=== PATIENT | female | born 1950 | race Caucasian/White ===

== ENCOUNTER 2017-08-30 12:18 | Emergency (ER) | payer BC, OTHER ==
--- NOTE | 2017-08-30 13:32 | RAD ---
HISTORY: Chest pain COMPARISONS: April 18, 2009 VIEWS: 1: frontal portable view of the chest at 1:19 PM FINDINGS: LINES AND TUBES: None. CARDIOMEDIASTINAL SILHOUETTE: The cardiomediastinal silhouette is normal for portable technique. PLEURA: The costophrenic angles are sharp. No pleural abnormalities are noted. LUNG PARENCHYMA: The lungs are clear. ABDOMEN: The upper abdomen is clear. There is no subphrenic gas. BONES AND SOFT TISSUES: No bone or soft tissue abnormalities are noted. IMPRESSION: NO ACTIVE CARDIOPULMONARY DISEASE.
[2017-08-30 13:48] LABS: INR 0.9 (0.77-1.02)
[2017-08-30 13:57] LABS: ABS Basophils 0.1 10^3/ul (0-0.2); ABS Eosinophils 0.1 10^3/ul (0-0.6); ABS Lymphocytes 2.2 10^3/ul (1.0-4.8); ABS Monocytes 0.4 10^3/ul (0-0.8); ABS Neutrophils 3.7 10^3/ul (1.5-7.7); ABS Nucleated RBC 0 10^3/ul; Eosinophil % 1.8 % (0-6); Hematocrit 39 % (35-47); Hemoglobin 13.4 g/dl (12.0-16.0); Lymphocyte % 34.4 % (25-47); Mean Corpuscular HGB Conc 34 g/dl (31-36); Mean Corpuscular Hemoglobin 30 pg (27-31); Mean Corpuscular Volume 88 fL (80-97); Mean Platelet Volume 10 um3 (7.4-10.4); Nucleated Red Blood Cells % 0.1; Platelet Count 216 10^3/ul (150-450); Red Blood Count 4.45 10^6/ul (4.0-5.4); Red Cell Distribution Width 14 % (10.5-15); White Blood Count 6.5 10^3/ul (3.5-10.8)
[2017-08-30 14:11] LABS: EGFR Non-African American 71.5 (>60)
[2017-08-30 15:44] LABS: Urine Appearance Clear; Urine Blood Negative (Negative); Urine Color Yellow; Urine Ketones Negative (Negative); Urine Protein Negative (Negative); Urine Specific Gravity 1.014 (1.010-1.030); Urine Urobilinogen Negative (Negative)
[2017-08-30 16:07] VITALS: BP 146/53
--- NOTE | 2017-08-31 09:27 | ED ---
Alberto Sanon Angela, scribed for Rene Collins MD on 08/30/17 at 1312 . HPI Chest Pain - HPI Summary HPI Summary: This pt is a 67 y/o female [facility]/o chest pain for the past year , worsening over the last month. Pt describes her chest pain as pressure, radiating from breasts outwards. She rates her pain 7/0 in severity. Today pt states she took her blood pressure at home with 2 different machine, and had a blood pressure averaging around 240/110. Pt states she has LE swelling (worse after surgery). Pt notes she called her bathing suit maker (Dr. Martin) and was advised to come to the ED. Pt used to see Dr. Lew at [facility], now is followed up by Dr. Martin at [place]. She states she has pain related to her surgery from . Pt had spine surgery on June 15 in [facility]. PMHx: GERD, diabetes, HTN. Pt takes Levemir and Metoprolol. - History of Current Complaint Chief Complaint: EDChestWallPain Time Seen by Provider: 08/30/17 13:06 Hx Obtained From: Patient Onset/Duration: Started Days Ago, Still Present Timing: Lasting Days Current Severity: Moderate Pain Intensity: 7 Pain Scale Used: 0-10 Numeric Chest Pain Location: Diffuse Chest Pain Radiates: Yes Chest Pain Radiates To:: Arm - bilateral arms Character: Pressure/Squeezing - pressure Aggravating Factor(s): Nothing Alleviating Factor(s): Nothing Associated Signs and Symptoms: Positive: Chest Pain, Other: - hypertensive - Allergy/Home Medications Allergies/Adverse Reactions: Allergies Allergy/AdvReac Type Severity Reaction Status Date / Time MS Ibuprofen [Ibuprofen] Allergy Heartburn Verified 08/30/17 16:07 MS Metformin [Metformin] Allergy Heartburn Verified 08/30/17 16:07 various narcotics AdvReac Nausea Uncoded 08/30/17 16:07 Home Medications: Home Medications Bumetanide TAB* [Bumex 1 MG TAB*] 0.5 mg PO DAILY 08/30/17 [History Confirmed ] Cholecalciferol TAB* [Vitamin D TAB*] 2,000 unit PO DAILY 08/30/17 [History Confirmed 08/30/17] Cyanocobalamin TAB* [Vitamin B12 TAB*] 500 mcg PO DAILY 08/30/17 [History Confirmed 08/30/17] Insulin ASPART (NF) [Novolog (NF)] 2 - 11 units SUBCUT ACHS 08/30/17 [History Confirmed 08/30/17] Insulin Detemir (NF) [Levemir (NF)] 20 unit SUBCUT DAILY 08/30/17 [History Confirmed 08/30/17] Methocarbamol TAB* [Robaxin 500 MG TAB*] 750 mg PO Q6H PRN 08/30/17 [History Confirmed 08/30/17] Multivitamins/Minerals TAB* [Theragran/minerals TAB*] 1 tab PO DAILY 08/30/17 [ History Confirmed 08/30/17] oxyCODONE TAB* [Roxycodone TAB 5 mg*] 5 - 10 mg PO Q4H PRN 08/30/17 [History Confirmed 08/30/17] PMH/Surg Hx/FS Hx/Imm Hx Endocrine/Hematology History: Reports: Hx Diabetes - type 2, Hx Thyroid Disease Cardiovascular History: Reports: Hx Angina, Hx Hypercholesterolemia, Hx Hypertension Denies: Hx Pacemaker/ICD Respiratory History: Denies: Hx Asthma - A CHILD GI History: Reports: Hx Diverticulosis, Hx Hiatal Hernia, Other GI Disorders - DIFFICULTY SWALLOWING, DIARRHEA/CONSTIPATION History: Reports: Other Problems/Disorders - INCONTINENCE Denies: Hx Dialysis, Hx Renal Disease Musculoskeletal History: Reports: Hx Arthritis, Hx Back Problems, Other Musculoskeletal History - WEAKNESS/TREMORS Sensory History: Reports: Hx Cataracts, Hx Contacts or Glasses Denies: Hx Hearing Aid Opthamlomology History: Reports: Hx Cataracts, Hx Contacts or Glasses Neurological History: Reports: Hx Headaches, Other Neuro Impairments/Disorders - POST CONCUSSION SYNDROME, DIZZINESS Psychiatric History: Denies: Hx Panic Disorder - Surgical History Surgery Procedure, Year, and Place: HYSTERECTOMY; ENDOMETRIOSIS SURGERY; RT AND LT BREAST BIOPSY; BREAST REDUCTION;. MAY 2017 LUMBAR FUSION AND CYST REMOVAL; Infectious Disease History: No Infectious Disease History: Denies: History Other Infectious Disease, Traveled Outside the [place] in Last 30 Days - Family History Known Family History: Positive: Diabetes, Other - prostate and skin cancer - Social History Alcohol Use: Rare Alcohol Amount: wine Substance Use Type: Reports: None Smoking Status (MU): Never Smoked Tobacco Review of Systems Negative: Fever, Chills Cardiovascular: Other - hypertension Positive: Chest Pain Musculoskeletal: Other - chronic pain from surgery All Other Systems Reviewed And Are Negative: Yes Physical Exam - Summary Physical Exam Summary: VITAL SIGNS: Reviewed. GENERAL: Patient is a well-developed and nourished female who is lying comfortable in the stretcher. Patient is not in any acute respiratory distress. HEAD AND FACE: No signs of trauma. No ecchymosis, hematomas or skull depressions. No sinus tenderness. EYES: PERRLA, EOMI x 2, No injected conjunctiva, no nystagmus. EARS: Hearing grossly intact. Ear canals and tympanic membranes are within normal limits. MOUTH: Oropharynx within normal limits. Dry oral mucosa. NECK: Supple, trachea is midline, no adenopathy, no JVD, no carotid bruit, no c- spine tenderness, neck with full ROM. CHEST: Symmetric, no tenderness at palpation LUNGS: Clear to auscultation bilaterally. No wheezing or crackles. CVS: Regular rate and rhythm, S1 and S2 present, no murmurs or gallops appreciated. ABDOMEN: Soft, non-tender. No signs of distention. No rebound no guarding, and no masses palpated. Bowel sounds are normal. EXTREMITIES: FROM in all major joints, no cyanosis or clubbing. 1+ pitting edema in bilateral lower extremity. NEURO: Alert and oriented x 3. No acute neurological deficits. Speech is normal and follows commands. SKIN: Dry and warm Triage Information Reviewed: Yes Vital Signs On Initial Exam: Initial Vitals Temp Pulse Resp BP Pulse Ox 97.6 F 60 18 149/70 98 08/30/17 12:21 08/30/17 12:21 08/30/17 12:21 08/30/17 12:21 08/30/17 12:21 Vital Signs Reviewed: Yes Diagnostics - Vital Signs Vital Signs Temp Pulse Resp BP Pulse Ox 08/30/17 12:21 97.6 F 60 18 149/70 98 - Laboratory Lab Results: Lab Results 08/30/17 08/30/17 08/30/17 Range/Units 13:28 13:46 13:46 WBC 6.5 (3.5-10.8) 10^3/ul RBC 4.45 (4.0-5.4) 10^6/ul Hgb 13.4 (12.0-16.0) g/dl Hct 39 (35-47) % MCV 88 (80-97) fL MCH 30 (27-31) pg MCHC 34 (31-36) g/dl RDW 14 (10.5-15) % Plt Count 216 (150-450) 10^3/ul MPV 10 (7.4-10.4) um3 Neut % (Auto) 56.8 (38-83) % Lymph % (Auto) 34.4 (25-47) % [place] % (Auto) 6.2 (1-9) % Eos % (Auto) 1.8 (0-6) % Baso % (Auto) 0.8 (0-2) % Absolute Neuts (auto) 3.7 (1.5-7.7) 10^3/ul Absolute Lymphs (auto) 2.2 (1.0-4.8) 10^3/ul Absolute Monos (auto) 0.4 (0-0.8) 10^3/ul Absolute Eos (auto) 0.1 (0-0.6) 10^3/ul Absolute Basos (auto) 0.1 (0-0.2) 10^3/ul Absolute Nucleated RBC 0 10^3/ul Nucleated RBC % 0.1 INR (Anticoag Therapy) 0.90 (0.77-1.02) APTT 30.4 (26.0-36.3) seconds Sodium (133-145) mmol/L Potassium (3.5-5.0) mmol/L Chloride (101-111) mmol/L Carbon Dioxide (22-32) mmol/L Anion Gap (2-11) mmol/L BUN (6-24) mg/dL Creatinine (0.51-0.95) mg/dL Est GFR ( Amer) (>60) Est GFR (Non-Af Amer) (>60) BUN/Creatinine Ratio (8-20) Glucose (70-100) mg/dL Calcium (8.6-10.3) mg/dL Magnesium (1.9-2.7) mg/dL Total Bilirubin (0.2-1.0) mg/dL AST (13-39) U/L ALT (7-52) U/L Alkaline Phosphatase (34-104) U/L Total Creatine Kinase (10-223) U/L CK-MB (CK-2) (0.6-6.3) ng/mL Troponin I (<0.04) ng/mL B-Natriuretic Peptide 65 ( - 100) pg/mL Total Protein (6.4-8.9) g/dL Albumin (3.2-5.2) g/dL Globulin (2-4) g/dL Albumin/Globulin Ratio (1-3) TSH (0.34-5.60) mcIU/mL Urine Color Urine Appearance Urine pH (5-9) Ur Specific [place] (1.010-1.030) Urine Protein (Negative) Urine Ketones (Negative) Urine Blood (Negative) Urine Nitrate (Negative) Urine Bilirubin (Negative) Urine Urobilinogen (Negative) Ur Leukocyte Esterase (Negative) Urine Glucose (Negative) 08/30/17 08/30/17 08/30/17 Range/Units 13:46 15:30 15:45 WBC (3.5-10.8) 10^3/ul RBC (4.0-5.4) 10^6/ul Hgb (12.0-16.0) g/dl Hct (35-47) % MCV (80-97) fL MCH (27-31) pg MCHC (31-36) g/dl RDW (10.5-15) % Plt Count (150-450) 10^3/ul MPV (7.4-10.4) um3 Neut % (Auto) (38-83) % Lymph % (Auto) (25-47) % [place] % (Auto) (1-9) % Eos % (Auto) (0-6) % Baso % (Auto) (0-2) % Absolute Neuts (auto) (1.5-7.7) 10^3/ul Absolute Lymphs (auto) (1.0-4.8) 10^3/ul Absolute Monos (auto) (0-0.8) 10^3/ul Absolute Eos (auto) (0-0.6) 10^3/ul Absolute Basos (auto) (0-0.2) 10^3/ul Absolute Nucleated RBC 10^3/ul Nucleated RBC % INR (Anticoag Therapy) (0.77-1.02) APTT (26.0-36.3) seconds Sodium 138 (133-145) mmol/L Potassium 3.8 (3.5-5.0) mmol/L Chloride 105 (101-111) mmol/L Carbon Dioxide 25 (22-32) mmol/L Anion Gap 8 (2-11) mmol/L BUN 17 (6-24) mg/dL Creatinine 0.80 (0.51-0.95) mg/dL Est GFR ( Amer) 92.0 (>60) Est GFR (Non-Af Amer) 71.5 (>60) BUN/Creatinine Ratio 21.3 H (8-20) Glucose 154 H (70-100) mg/dL Calcium 9.2 (8.6-10.3) mg/dL Magnesium 2.3 (1.9-2.7) mg/dL Total Bilirubin 0.60 (0.2-1.0) mg/dL AST 14 (13-39) U/L ALT 12 (7-52) U/L Alkaline Phosphatase 54 (34-104) U/L Total Creatine Kinase 80 (10-223) U/L CK-MB (CK-2) 2.6 (0.6-6.3) ng/mL Troponin I 0.00 0.00 (<0.04) ng/mL B-Natriuretic Peptide ( - 100) pg/mL Total Protein 6.4 (6.4-8.9) g/dL Albumin 4.0 (3.2-5.2) g/dL Globulin 2.4 (2-4) g/dL Albumin/Globulin Ratio 1.7 (1-3) TSH 2.32 (0.34-5.60) mcIU/mL Urine Color Yellow Urine Appearance Clear Urine pH 6.0 (5-9) Ur Specific [place] 1.014 (1.010-1.030) Urine Protein Negative (Negative) Urine Ketones Negative (Negative) Urine Blood Negative (Negative) Urine Nitrate Negative (Negative) Urine Bilirubin Negative (Negative) Urine Urobilinogen Negative (Negative) Ur Leukocyte Esterase Negative (Negative) Urine Glucose Negative (Negative) Result Diagrams: 08/30/17 13:46 08/30/17 13:46 Lab Statement: Any lab studies that have been ordered have been reviewed, and results considered in the medical decision making process. - Radiology Chest XR Xray Interpretation: No Acute Changes - IMPRESSION: No active cardiopulmonary disease. Dr. Collins has reviewed this radiology report. Radiology Interpretation Completed By: Radiologist - EKG 12:44 Cardiac Rate: NL EKG Rhythm: Sinus Rhythm - at 70 bpm EKG Interpretation: Right bundle branch block. Chest Pain Course/Dx - Course Assessment/Plan: This pt is a 67 y/o female [facility] c/o chest pain for the past year, worsening over the last month. Pt describes her chest pain as pressure, radiating from breasts outwards. She rates her pain 7/0 in severity. Today pt states she took her blood pressure at home with 2 different machine, and had a blood pressure averaging around 240/110. Pt states she has LE swelling (worse after surgery). Pt notes she called her bathing suit maker (Dr. Martin) and was advised to come to the ED. Pt used to see Dr. Lew at [facility], now is followed up by Dr. Martin at [place]. She states she has pain related to her surgery from . Pt had spine surgery on June 15 in [facility]. PMHx: GERD, diabetes, HTN. Pt takes Levemir and metoprolol. Test results without significant abnormalities except for glucose of 154. Troponin 1 and 2 are both negative. Chest XR and EKG without any abnormalities. Since the pt continues to be asymptomatic, therefore the pt will be discharged to home with follow up from PCP and cardiology for further work up and management. Pt is instructed to return to the ED if her symptoms return or worsen. Pt is hemodynamically stable, alert and oriented x3. - Chest Pain Differential Diagnosis/HQI/PQRI: Acute WI, ACS, Angina, CHF, Chest Wall, GI Disease, Lower Respiratory Infection - Diagnoses Provider Diagnoses: Atypical chest pain Discharge - Discharge Plan Condition: Stable Disposition: HOME Patient Education Materials: Chest Pain (ED) Referrals: Robert Lira MD [Primary Care Provider] - 3 Days Additional Instructions: Please follow up with your primary care provider. RETURN TO THE ED FOR ANY WORSENING SYMPTOMS. The documentation as recorded by the Alberto ortiz Angela accurately reflects the service I personally performed and the decisions made by me, Rene Collins MD.
== END 2017-08-30 16:18 | disposition home or self-care (01) ==
LOC: ED 12:18
DX: R07.89 Other chest pain (principal); I45.10 Unspecified right bundle-branch block; E11.9 Type 2 diabetes mellitus without complications; Z79.4 Long term (current) use of insulin; E07.9 Disorder of thyroid, unspecified; I20.9 Angina pectoris, unspecified; I10 Essential (primary) hypertension; I48.91 Unspecified atrial fibrillation; E78.00 Pure hypercholesterolemia, unspecified; Z90.710 Acquired absence of both cervix and uterus; K57.90 Diverticulosis of intestine, part unspecified, without perforation or abscess without bleeding; R32 Unspecified urinary incontinence; Z88.6 Allergy status to analgesic agent; Z88.5 Allergy status to narcotic agent; Z88.8 Allergy status to other drugs, medicaments and biological substances
CPT/HCPCS: 36415; 71045; 80053; 81003; 82550; 82553; 83735; 83880; 84443; 84484; 85025; 85610; 85730; 93005; 99282

== ENCOUNTER 2019-01-25 16:05 | Inpatient (IN) | payer BC ==
--- NOTE | 2019-01-25 16:34 | ED ---
Complex/Multi-Sys Presentation - HPI Summary HPI Summary: 68 year old F referred to [facility] by her primary care provider accompanied by with a chief complaint of fever since yesterday. The patient rates the pain 3/10 in severity. Symptoms aggravated by nothing. Symptoms alleviated by Tylenol, last taken one hour prior to arrival. states that patient had a temp 103.8 last night, temp 104.7 before seeing her primary care provider today, temp 103.9 at her primary care provider's office today. Patient denies nausea, vomiting, decreased appetite, difficulty having bowel movements. Patient additionally has swelling of the left lower extremity and erythema of the left lower extremity. She reports increasing left lower extremity pain in the last 2 days. She reports left calf pain. She reports increasing bilateral leg weakness - she is unable to stand and unable to move - if she becomes unsteady, she cannot adjust quickly, which has resulted in multiple falls. She denies fall this week. Patient was given Keflex last week for LLE cellulitis - but did not take it Also in the last several weeks, as her ability to walk has worsened, and as she has felt increasingly fatigued, patient has noticed worsening burning in her epigastrium. Patient states she is taking diuretics, which are "destroying her kidneys." Patient denies being on dialysis and denies plans to be on dialysis. Patients medication reviewed this visit. - History Of Current Complaint Chief Complaint: EDFever Time Seen by Provider: 01/25/19 16:17 Hx Obtained From: Patient, Family/Teen Counselor - Onset/Duration: Lasting Days - 1, Still Present Timing: Constant Severity Currently: Mild Aggravating Factor(s): Nothing Alleviating Factor(s): alleviated by Tylenol, last taken one hour prior to arrival Associated Signs And Symptoms: Positive: Other - swelling of the left lower extremity and erythema of the left lower extremity, left lower extremity pain, left calf pain, bilateral leg weakness, burning in her epigastrium; NEGATIVE: nausea, vomiting, decreased appetite, difficulty having bowel movements - Allergies/Home Medications Allergies/Adverse Reactions: Allergies Allergy/AdvReac Type Severity Reaction Status Date / Time ibuprofen Allergy Unknown Verified 01/25/19 16:15 Reaction Details metformin Allergy Unknown Verified 01/25/19 16:15 Reaction Details various narcotics AdvReac Nausea Uncoded 01/25/19 16:15 Home Medications: Home Medications Dexlansoprazole [Dexilant] 30 mg PO DAILY 01/25/19 [History Confirmed 01/25/19] Spironolactone TAB* [Aldactone TAB*] 25 mg PO DAILY 01/25/19 [History Confirmed 01/25/19] PMH/Surg Hx/FS Hx/Imm Hx Previously Healthy: No Endocrine/Hematology History: Reports: Hx Diabetes - type 2, Hx Thyroid Disease Cardiovascular History: Reports: Hx Angina, Hx Hypercholesterolemia, Hx Hypertension Denies: Hx Pacemaker/ICD Respiratory History: Denies: Hx Asthma - A CHILD GI History: Reports: Hx Diverticulosis, Hx Gastroesophageal Reflux Disease, Hx Hiatal Hernia, Hx Irritable Bowel, Other GI Disorders - DIFFICULTY SWALLOWING, DIARRHEA/CONSTIPATION History: Reports: Other Problems/Disorders - INCONTINENCE Denies: Hx Dialysis, Hx Renal Disease Musculoskeletal History: Reports: Hx Arthritis, Hx Back Problems, Other Musculoskeletal History - WEAKNESS/TREMORS Sensory History: Reports: Hx Cataracts, Hx Contacts or Glasses Denies: Hx Hearing Aid Opthamlomology History: Reports: Hx Cataracts, Hx Contacts or Glasses Neurological History: Reports: Hx Headaches, Other Neuro Impairments/Disorders - POST CONCUSSION SYNDROME, DIZZINESS Psychiatric History: Denies: Hx Panic Disorder - Surgical History Surgery Procedure, Year, and Place: HYSTERECTOMY; ENDOMETRIOSIS SURGERY; RT AND LT BREAST BIOPSY; BREAST REDUCTION;. MAY 2017 LUMBAR FUSION AND CYST REMOVAL;. back surgery 2018 Infectious Disease History: No Infectious Disease History: Denies: History Other Infectious Disease, Traveled Outside the [place] in Last 30 Days - Family History Known Family History: Positive: Diabetes, Other - prostate and skin cancer, Non- Contributory - Social History Occupation: Retired Lives: With Family Alcohol Use: Rare Alcohol Amount: wine Hx Substance Use: No Substance Use Type: Reports: None Hx Tobacco Use: No Smoking Status (MU): Never Smoked Tobacco Review of Systems Positive: Fever Gastrointestinal: Negative - decreased appetite, difficulty having bowel movements Positive: Other - burning in her epigastrium. Negative: Vomiting, Nausea Positive: Other - swelling of the left lower extremity and erythema of the left lower extremity, left lower extremity pain, left calf pain, bilateral leg weakness All Other Systems Reviewed And Are Negative: Yes Physical Exam - Summary Physical Exam Summary: Vital Signs Reviewed: Yes A+Ox3, no distress Eyes: Conjunctiva Clear, HERNESTO. EOM intact and full ENT: Hearing grossly normal TM x 2 clear, turbinates minimal inflammation mmoist, uvula midline, no exudate, + erythema Neck: Positive: Supple, + submandicular LA R>L Respiratory: Positive: No respiratory distress, No accessory muscle use + CTA throughout no w/r Cardiovascular: RRR nl s1, s2 no m/r CBT <2 sec + 2+ edema b/l LE mild TTP left calf abd soft + BS nt/nd no guarding, no distension Musculoskeletal Exam: JIMENEZ x 4 without difficulty Strength Intact, ROM Intact Neurological: Positive: Alert, + sensation throughout Psychological: Positive: Normal Response To screen making supervisor Skin: Positive: no rash, no ecchymosis, LLE edema and cellulitis to upper 1/2 LE circumferential, warm Triage Information Reviewed: Yes Vital Signs On Initial Exam: Initial Vitals Temp Pulse Resp BP Pulse Ox 98.6 F 91 19 151/85 94 01/25/19 16:09 01/25/19 16:09 01/25/19 16:09 01/25/19 16:09 01/25/19 16:09 Vital Signs Reviewed: Yes Diagnostics - Vital Signs Vital Signs Temp Pulse Resp BP Pulse Ox 01/25/19 16:09 98.6 F 91 19 151/85 94 - Laboratory Result Diagrams: 01/28/19 05:08 01/29/19 10:23 Lab Statement: Any lab studies that have been ordered have been reviewed, and results considered in the medical decision making process. - Radiology CXR Radiology Interpretation Completed By: Radiologist Summary of Radiographic Findings: NO ACTIVE CARDIOPULMONARY DISEASE IS NOTED. ED physician has reviewed this report. - EKG 1647 Cardiac Rate: NL - 76 BPM EKG Rhythm: Sinus Rhythm Summary of EKG Findings: Right bundle branch block is new compared to 08/30/17. No acute changes. Non-STEMI. Re-Evaluation - Re-Evaluation First Eval Comment: d/w pharmacist - Will use Doxy - cephalosporin not US made in whole. will admit. Pt in agreement. US result pending - d/w Dr. Liv Goncalves Multi-Symp Course/Dx Course Of Treatment: Pt presents with fever x 48 hours, progressive pain and cellulitis LLE. Pt had Rx keflex - did not take. Today with fever 103 -PCP sent to hospital Pt with chronic edema LE - pt with progressive discomfort LLE APAP given at PCP. VSS- slight elevated BP - h/o Pt with cellultisi, circumferential LLE. will check labs, US. d/w pt will likely require hospitalization for IV abx. pt requesitng US meds only -will d/w pharmacist - Diagnoses Provider Diagnoses: Cellulitis, Fever - Physician Notifications Discussed Care Of Patient With: Arin Peck Time Discussed With Above Provider: 18:42 Instructed by Provider To: Admit As Inpatient - Dr. Peck, hospitalist, agrees to admit the patient Discharge - Sign-Out/Discharge Documenting (check all that apply): Patient Departure All imaging exams completed and their final reports reviewed: No - Discharge Plan Condition: Stable Disposition: ADMITTED TO [facility] - Billing Disposition and Condition Condition: STABLE Disposition: Admitted to [facility] - Attestation Statements Document Initiated by Scribe: Yes Documenting Scribe: Rafaela Anand Provider For Whom Scribe is Documenting (Include Credential): Sammie Harris MD Scribe Attestation: Rafaela Sanon, scribed for Sammie Harris MD on 01/29/19 at 1247. Scribe Documentation Reviewed: Yes Provider Attestation: The documentation as recorded by the scribRafaela serra accurately reflects the service I personally performed and the decisions made by , Sammie Harris MD Status of Scribe Document: Viewed
[2019-01-25] MEDS ORDERED: NS 0.9% 1000 ML** 1,000 ML IV ONE (17:32)
[2019-01-25 18:05] LABS: ABS Basophils 0.1 10^3/ul (0-0.2); ABS Lymphocytes 1.2 10^3/ul (1.0-4.8); ABS Monocytes 0.6 10^3/ul (0-0.8); ABS Neutrophils 16.4 10^3/ul (1.5-7.7); Hematocrit 34 % (35-47); Hemoglobin 11.7 g/dL (12.0-16.0); Lymphocyte % 6.4 %; Mean Corpuscular HGB Conc 34 g/dL (31-36); Mean Corpuscular Hemoglobin 30 pg (27-31); Mean Corpuscular Volume 87 fL (80-97); Mean Platelet Volume 10.8 fL (7.4-10.4); Platelet Count 182 10^3/uL (150-450); Red Blood Count 3.91 10^6 /uL (3.70-4.87); Red Cell Distribution Width 13 % (10-15); White Blood Count 18.2 10^3/uL (3.5-10.8)
[2019-01-25 18:22] LABS: Albumin 3.6 g/dL (3.2-5.2); Albumin/Globulin Ratio 1.4 (1-3); EGFR African American 46.4 (>60); EGFR Non-African American 38.3 (>60); Globulin 2.6 g/dL (2-4); Potassium 3.8 mmol/L (3.5-5.0); Total Bilirubin 0.9 mg/dL (0.2-1.0); Total Protein 6.2 g/dL (6.4-8.9)
[2019-01-25 18:24] LABS: Activated Partial Thrombo Time 33.7 seconds (26.0-38.0); INR 1.29 (0.82-1.09); Troponin I 0.03 ng/mL (<0.04)
[2019-01-25] MEDS ORDERED: DOXYcycline IV* 100 MG in NS 0.9% 250 ML* 250 ML IVPB ONE (18:57)
[2019-01-25 19:20] LABS: Urine Appearance Clear; Urine Bilirubin Negative (Negative); Urine Blood Negative (Negative); Urine Color Yellow; Urine Glucose Negative (Negative); Urine Ketones Negative (Negative); Urine Nitrite Negative (Negative); Urine Protein Negative (Negative); Urine Specific Gravity 1.006 (1.010-1.030); Urine Urobilinogen Negative (Negative)
[2019-01-25] MEDS: NS 0.9% 1000 ML** 1,000 ML IV SCH (19:57)
[2019-01-25] MEDS: Acetaminophen TAB* 325 MG PO PRN (21:17)
[2019-01-25] MEDS ORDERED: Iodixanol* (CONTRAST) 320 MG/ML 100 ML SDV IV ONE (21:38)
[2019-01-25] MEDS ORDERED: Vancomycin per Pharmacy* NOTE FOLLOW UP PRN (21:41)
[2019-01-25] MEDS ORDERED: Vancomycin(*) 1,000 MG VIAL IVPB SCH (22:00)
[2019-01-25] MEDS: Cefepime 1 GM in Dextrose(*) 1 GM/50 ML BAG IV SCH (22:26)
[2019-01-25] MEDS ORDERED: Vancomycin 1500 MG IV - x ONCE IVPB ONE ×2 (22:30)
[2019-01-25] MEDS: Apixaban* 5 MG TAB PO SCH (23:19)
--- NOTE | 2019-01-25 23:39 | HP ---
CC: Dr. Lira * HISTORY AND PHYSICAL: DATE OF ADMISSION: 01/25/19 PROVIDER: Low Morales NP PRIMARY CARE PROVIDER: Dr. Lira. ATTENDING PHYSICIAN WHILE IN THE HOSPITAL: Dr. Benja Springer * (dictated by Low Morales NP). CHIEF COMPLAINT: 1. Fever. 2. Lower extremity redness. HISTORY OF PRESENT ILLNESS: Ms. Childs is a 68-year-old female with past medical history significant for hypertension, GERD, Mcelroy's esophagus, edema, and diabetes, who presented to the emergency room with complaints of fever and lower extremity redness and swelling. The patient reports that she developed a fever yesterday evening, has had fever and chills all night and throughout the day today. She reports that she has had redness to bilateral lower extremities for approximately 1 week, progressively getting worse. She also reports some open scabbed areas noted to bilateral lower extremities. She also reports increased pain to her bilateral lower legs as well as she reports chronic nausea. She does report chest pain and pain with deep breath. She denies any cough, hemoptysis. She does report shortness of breath. Also she does report nausea associated with her edema. No diarrhea or abdominal pain. No gross hematuria or dysuria. She does complain of burning with urination at times. Denies any focal weakness or sensory loss, dysphagia, arthralgias, myalgias. She does complain of increased erythema and open ulcerations to bilateral lower extremities. Denies any psychosis or anxiety. While in the emergency room, she had routine lab work drawn. She was found to have a white count of 18.2. She had a fever of 102.0. Due to these findings, we were asked to see and evaluate the patient for admission. She also had venous Doppler of her left lower leg which did show positive for DVT. PAST MEDICAL HISTORY: Significant for: 1. Spastic colon. 2. Hypertension. 3. GERD. 4. Mcelroy's esophagus. 5. Edema. 6. Type 2 diabetes. PAST SURGICAL HISTORY: 1. Hysterectomy. 2. Breast reduction. 3. Spinal fusion. HOME MEDICATIONS: Include: 1. Aldactone 25 mg p.o. daily. 2. Toprol 12.5 mg p.o. daily. 3. Dexilant 30 mg p.o. daily. 4. Diovan 40 mg p.o. daily. 5. Torsemide 10 mg p.o. daily. 6. NovoLog sliding scale. 7. Levemir 16 units in the a.m. and 20 units in the p.m. ALLERGIES: 1. IBUPROFEN. 2. METFORMIN. 3. VARIOUS ANTIBIOTICS. 4. NSAIDS. FAMILY HISTORY: Father with quadruple bypass at the age of 85. No reported history of diabetes, cancer. Mother with basal cell carcinoma of the skin. Brother with fibrosarcoma. SOCIAL HISTORY: The patient denies any tobacco, alcohol, or illicit drug use. She is . She lives with her . She uses a cane or a walker for ambulation at home. Surrogate decision maker in the event she is unable to make her own decisions is her . She is a full code. REVIEW OF SYSTEMS: A 14-point review of systems was completed. All pertinent positives are mentioned in the HPI. PHYSICAL EXAMINATION GENERAL: At this time, Ms. Childs is a 68-year-old female. She is alert and oriented, resting on the stretcher in the emergency room. She is in no acute distress. VITAL SIGNS: Temperature was 100, heart rate 82, respirations 18, O2 saturation 96%, blood pressure was 136/53. HEENT: Head is atraumatic, normocephalic. Eyes: EOMs are intact. Sclerae anicteric and not pale. Oral mucosa appeared to be moist. NECK: Supple. LUNGS: Clear to auscultation bilaterally. No wheezes, rales, or rhonchi. CARDIAC: S1, S2. Regular rate and rhythm. No murmurs, rubs, or gallops. ABDOMEN: Obese, soft, and nontender. Bowel sounds are present x4. MUSCULOSKELETAL: She is able to move all 4 extremities. There is no clubbing or cyanosis. NEUROLOGIC: She is awake, alert, oriented x3. Speech is clear. Thought process is intact. She has no gross focal deficits. SKIN: She does have erythema noted to bilateral lower extremities, left greater than right. She does have open ulcerations that are nondraining at this time. Skin is warm to touch. Erythemas on the left extends from her knee down. DIAGNOSTIC STUDIES/LAB DATA: WBCs are 18.2, RBCs 3.91, hemoglobin 11.7, hematocrit 34, platelet count 182. INR is 1.29. APTT was 33.7. Sodium 136, potassium 3.8, chloride 102, carbon dioxide is 24, anion gap is 10, BUN 26, creatinine 1.37, GFR 38.3, glucose 129, lactic acid 1.6, calcium 9. ASTs were 30, ALTs 29, alkaline phosphatase 63. Total protein was 6.2. Urine was within normal limits with exception to specific gravity of 1.006. She had an electrocardiogram, which showed sinus rhythm with a right bundle branch block at a rate of 76, consistent with prior EKG. She had a chest x-ray that showed no acute cardiopulmonary disease. She had a Doppler of the left lower extremity. Study was positive for nonocclusive thrombus in the visualized portions of the left profunda femoris vein, age indeterminate. ASSESSMENT AND PLAN: Ms. Childs is a 68-year-old female with past medical history significant for hypertension, gastroesophageal reflux disease, Mcelroy' s esophagus, lower extremity edema, and type 2 diabetes, who presented to the emergency room with fever and bilateral lower leg cellulitis. She was found to have a DVT in her left leg. She will be admitted to inpatient for: 1. Cellulitis: The patient does meet sepsis criteria with elevated white count of 18.2, tachypnea with a respiratory rate of 22, and suspected source of cellulitis to bilateral lower extremities. The patient was given doxycycline in the emergency room. I will start her on vancomycin and cefepime and will continue to monitor. 2. Left leg DVT. The patient does have new DVT to the left leg profunda femoris vein . I will start her on Eliquis 10 mg p.o. b.i.d. x7 days and then she will need to continue on Eliquis 5 mg p.o. b.i.d. until further recommendations by her primary care physician. 3. Diabetes. I will place the patient on fingersticks a.c. and h.s. She would like to continue with her personal NovoLog insulin and Levemir. The patient will bring in her medications from home. 4. Hypertension. She will continue her Toprol as previously prescribed. I will hold her Aldactone. 5. Edema. The patient does have chronic lower extremity edema. She is on torsemide and Aldactone. I will hold these as the patient is meeting sepsis at this time. 6. Gastroesophageal reflux disease. She will continue on Dexilant. The patient would like to continue her home medication. This will be sent to the pharmacy for the patient. 7. FEN. She can have a consistent carb diet. 8. Code status. She is a full code. 9. DVT prophylaxis. She will be on Eliquis. Mechanical DVT prophylaxis at this time is contraindicated as the patient does have DVT in her lower extremity and lower extremity swelling. TIME SPENT: Time spent on this admission was approximately 60 minutes, greater than half that time was spent at the bedside reviewing the events leading thus far to her hospitalization, performing physical exam, and reviewing my plan of care. I have discussed this with my attending Dr. Benja Springer; he is in agreement with my plan. LOW MORALES, APRIL [id number]/CPS #: [id number] MTDD
[2019-01-25] MEDS: Al Hydrox/Mg Hydrox/Simet LIQ* 30 ML UDC PO PRN (23:50)
[2019-01-26 05:37] LABS: ABS Lymphocytes 1.1 10^3/ul (1.0-4.8); ABS Monocytes 0.6 10^3/ul (0-0.8); ABS Neutrophils 13.1 10^3/ul (1.5-7.7); Eosinophil % 0.1 %; Hematocrit 32 % (35-47); Hemoglobin 10.6 g/dL (12.0-16.0); Lymphocyte % 7.6 %; Mean Corpuscular HGB Conc 33 g/dL (31-36); Mean Corpuscular Hemoglobin 30 pg (27-31); Mean Corpuscular Volume 91 fL (80-97); Mean Platelet Volume 10.7 fL (7.4-10.4); Nucleated Red Blood Cells % 0.2; Platelet Count 159 10^3/uL (150-450); Red Blood Count 3.56 10^6 /uL (3.70-4.87); Red Cell Distribution Width 14 % (10-15); White Blood Count 14.9 10^3/uL (3.5-10.8)
[2019-01-26 05:51] LABS: Calcium 8.3 mg/dL (8.6-10.3); Potassium 4.1 mmol/L (3.5-5.0)
[2019-01-26 05:56] LABS: BUN/Creatinine Ratio 17.2 (8-20); EGFR African American 56.2 (>60); EGFR Non-African American 46.5 (>60)
[2019-01-26] MEDS: NS 0.9% 1000 ML** 1,000 ML IV SCH ×2 (07:56→18:57)
[2019-01-26] MEDS: Acetaminophen TAB* 325 MG PO PRN ×2 (08:59→20:01)
[2019-01-26] MEDS ORDERED: METOPROLOL SUCCINATE 25 MG PO SCH (09:00)
[2019-01-26] MEDS: Apixaban* 5 MG TAB PO SCH ×2 (09:00→20:01)
[2019-01-26] MEDS ORDERED: Insulin GLARGINE(*) 1 UNITS UNIT SUBCUT SCH (09:00)
[2019-01-26] MEDS ORDERED: INSULIN DETEMIR 100 UNIT/ML SUBCUT SCH (09:00)
[2019-01-26] MEDS ORDERED: Valsartan TAB* 40 MG PO SCH (09:00)
[2019-01-26] MEDS: Multivitamins/Minerals TAB PO SCH (09:01)
[2019-01-26] MEDS: Cefepime 1 GM in Dextrose(*) 1 GM/50 ML BAG IV SCH ×2 (10:44→23:26)
[2019-01-26] MEDS: Vancomycin(*) 1,000 MG in NS 0.9% 250 ML* 250 ML IVPB SCH (12:34)
[2019-01-26] MEDS: DEXLANSOPRAZOLE 30 MG PO SCH (12:44)
[2019-01-26] MEDS: INSULIN DETEMIR 100 UNIT/ML SUBCUT SCH ×2 (12:47→20:56)
[2019-01-26] MEDS ORDERED: Famotidine IV* 10 MG/ML 2 ML (20 mg) IV SLOW PU ONE ×2 (16:28→21:00)
[2019-01-26] MEDS ORDERED: Ondansetron INJ* 2 MG/ML VIAL IV PRN (16:29)
--- NOTE | 2019-01-26 16:48 | PN ---
Subjective Date of Service: 01/26/19 Interval History: Patient seen and examined. Patient appears anxious, asked many questions about her medications and potential outcomes. Explained POC in detail. Patient complains of leg pains and edema. Denies SOB, no chest pain, no fevers or chills today. No further complaints. Objective Active Medications: Acetaminophen (Tylenol Tab*) 650 mg PO Q4H PRN PRN Reason: FEVER/PAIN Last Admin: 01/26/19 08:59 Dose: 650 mg Al Hydrox/Mg Hydrox/Simethicone (Maalox Plus*) 30 ml PO Q2H PRN PRN Reason: DYSPEPSIA Last Admin: 01/25/19 23:50 Dose: 30 ml Apixaban (Eliquis*) 10 mg PO BID [facility] Stop: 02/01/19 09:01 Last Admin: 01/26/19 09:00 Dose: 10 mg Dexlansoprazole (Dexilant (Nf)) 30 mg PO DAILY [facility] Last Admin: 01/26/19 12:44 Dose: 30 mg Sodium Chloride (Ns 0.9% 1000 Ml) 1,000 mls @ 125 mls/hr IV PER RATE [facility] Last Admin: 01/26/19 07:56 Dose: 125 mls/hr Cefepime HCl (Maxipime 1 Gm In Dextrose Duplex (*)) 1 gm in 50 mls @ 100 mls/ hr IV Q12H [facility] Last Admin: 01/26/19 10:44 Dose: 100 mls/hr Vancomycin HCl 1,000 mg/ (Sodium Chloride) 250 mls @ 166.667 mls/hr IVPB Q12H [facility] Last Admin: 01/26/19 12:34 Dose: 166.667 mls/hr Insulin Aspart (Novolog (Nf)) 0 - 10 unit SUBCUT ACHS [facility]; Protocol Insulin Detemir (Levemir (Nf)) 20 unit SUBCUT BEDTIME [facility] Insulin Detemir (Levemir (Nf)) 16 unit SUBCUT 0900 [facility] Last Admin: 01/26/19 12:47 Dose: 16 unit Metoprolol Succinate (Toprol Xl Tab*) 25 mg PO DAILY [facility] Multivitamins/Minerals (Theragran/Minerals Tab*) 1 tab PO DAILY [facility] Last Admin: 01/26/19 09:01 Dose: Not Given Ondansetron HCl (Zofran Inj*) 4 mg IV Q6H PRN PRN Reason: NAUSEA Pharmacy Consult (Vancomycin Per Pharmacy*) 1 note FOLLOW UP . PRN PRN Reason: PER PROTOCOL Pharmacy Profile Note (Vancomycin Trough Check) 1 note FOLLOW UP 1030 ONE Stop: 01/27/19 10:31 Valsartan (Diovan Tab*) 40 mg PO BEDTIME [facility] Vital Signs - 8 hr 01/26/19 01/26/19 11:30 15:00 Temperature 98.2 F 98.2 F Pulse Rate 77 77 Respiratory 16 18 Rate Blood Pressure 132/57 130/41 (mmHg) O2 Sat by Pulse 95 98 Oximetry Oxygen Devices in Use Now: None Appearance: alert, NAD Eyes: No Scleral Icterus, PERRLA Ears/Nose/Mouth/Throat: NL Teeth, Lips, Gums, Mucous Membranes Moist Neck: NL Appearance and Movements; NL JVP, Trachea Midline Respiratory: Symmetrical Chest Expansion and Respiratory Effort, Clear to Auscultation Cardiovascular: RRR, No Edema Abdominal: NL Sounds; No Tenderness; No Distention Extremities: - - bilateral LE lymphedema with bilateral cellulitis and open areas/scabs and erythema Neurological: Alert and Oriented x 3, NL Sensation Nutrition: Taking PO's Result Diagrams: 01/26/19 05:00 01/26/19 05:00 Diagnostic Imaging: Patient Name: SKYLAR SCHILLING Medical Record#: [id number] Ordering Physician: Katie Morales NP Acct.#: [id number] : 1950 Age: 68 Sex: F Location: [address] [place] [address]/TELEMETRY Exam Date: 01/25/192132 ADM Status: ADM IN Order Information: CTA CHEST Accession Number: [id number] CPT: 72067 EXAM: CT Angiography Chest With Contrast EXAM DATE/TIME: 01/25/2019 10:10 PM CLINICAL HISTORY: 68 years old, female; Shortness of breath; Additional info: Chest pain, shortness of breath, left leg dvt TECHNIQUE: Imaging protocol: Axial computed tomographic angiography images of the chest with intravenous contrast using CT angiography protocol. Coronal and sagittal reformatted images were created and reviewed. 3D rendering: MIP reconstructed images were created and reviewed. Radiation optimization: All CT scans at this facility use at least one of these dose optimization techniques: automated exposure control; mA and/or kV adjustment per patient size (includes targeted exams where dose is matched to clinical indication); or iterative reconstruction. Contrast material: VISI 320; Contrast volume: 85 ml; Contrast route: IV; COMPARISON: OT CXR PORTAP CHEST AP OR PORT 01/25/2019 5:01 PM FINDINGS: Pulmonary arteries: Images were acquired with contrast located in both the systemic and pulmonary arterial phase. No evidence of acute pulmonary embolic disease in the main or segmental pulmonary arteries. The distal subsegmental pulmonary arteries are difficult to assess due to the lack of intravenous contrast. Aorta: Atheromatous changes involving the thoracic aorta. No aortic aneurysm or dissection. Lungs: No pulmonary consolidation. Pleural space: No pleural effusion. No pneumothorax. Heart: The heart is of normal size. No pericardial thickening or effusion. Mild coronary calcification. Mediastinum: Large hiatal hernia. No mediastinal mass. Stomach and bowel: A portion of the stomach is located within the thoracic cage. Lymph nodes: No mediastinal adenopathy. Bones/joints: The thoracic cage is intact. Multilevel degenerative thoracic disc disease. No fracture of the thoracic vertebral bodies. No pathologic subluxation. Soft tissues: Unremarkable. IMPRESSION: Less than optimal opacification of the pulmonary arterial system. No evidence of clot in the main pulmonary arteries or segmental pulmonary arteries. The distal subsegmental pulmonary arteries are not adequately opacified. No evidence of right heart strain. [facility] Patient Name:SKYLAR SCHILLING MR:[id number] : 1950 The study is POSITIVE for nonocclusive thrombus in visualized portions of the left profunda femoris vein, age-indeterminate but new since prior study dated 03/21/15. To contact [facility] with a general question: [facility] - [phone] For direct physician to physician contact: Physician Hotline - [phone] [facility] ([facility] Facility ID #[id number]) <Electronically signed by Aline Torres MD in OV> 01/25/191928 Dictated By: Aline Torres MD Dictated Date/Time: 01/25/191928 Transcribed Date/Time: Copy to: Assess/Plan/Problems-Billing Assessment: This is a 68 year old female with history of diabetes, lymphedema, HLP, HTN that presented to ED with complaints of LE erythema and pain, admitted for cellulitis and new LLE DVT. - Patient Problems (1) Cellulitis Code(s): L03.90 - CELLULITIS, UNSPECIFIED SNOMED Code(s): 722885347 Comment: - With chronic lymphedema, leukocytosis and fever - Continue vanco and cefepime - Follow cultures (2) Deep vein thrombosis (DVT) of left lower extremity Code(s): I82.402 - ACUTE EMBOLISM AND THOMBOS UNSP DEEP VEINS OF L LOW EXTREM SNOMED Code(s): 910257094 Comment: - LLE profunda femoris - Loading dose eliquis started 10mg BID for 7 days (3) Hypertension Code(s): I10 - ESSENTIAL (PRIMARY) HYPERTENSION SNOMED Code(s): 94131546 Comment: - Continue toprol 25mg daily home dose and valsartan (4) Morrow esophagus Code(s): K22.70 - MORROW'S ESOPHAGUS WITHOUT DYSPLASIA SNOMED Code(s): 160146210 Comment: - Patient brought her dexilent from home - Had some nausea today and abdominal pain, one dose pepcid IV and zofran PRN (5) Diabetes Code(s): E11.9 - TYPE 2 DIABETES MELLITUS WITHOUT COMPLICATIONS SNOMED Code(s) : 02618509 Comment: - Insulin dependent, prefers to take her insulin pens from home, pharmacy aware Status and Disposition: Inpatient, dispo to home when medically stable.
[2019-01-26] MEDS: PTO: Insulin ASPART (NF) 100 UNIT/ML VIAL SUBCUT SCH ×2 (17:12→20:35)
[2019-01-26] MEDS: Al Hydrox/Mg Hydrox/Simet LIQ* 30 ML UDC PO PRN (20:06)
[2019-01-26] MEDS: amLODIPine TAB* 5 MG PO ONE ×2 (20:42→23:25)
[2019-01-26] MEDS: VALSARTAN 40 MG PO SCH (20:45)
[2019-01-27] MEDS: Vancomycin(*) 1,000 MG in NS 0.9% 250 ML* 250 ML IVPB SCH ×2 (00:08→12:17)
[2019-01-27] MEDS ORDERED: Albuterol 2.5 MG/3 ML NEB.SOL* (0.083%) INH ONE (05:26)
[2019-01-27] MEDS ORDERED: hydrOXYzine HCL TAB* 25 MG PO ONE (05:30)
[2019-01-27] MEDS ORDERED: Albuterol 2.5 MG/3 ML NEB.SOL* (0.083%) INH PRN (05:42)
[2019-01-27] MEDS: INSULIN DETEMIR 100 UNIT/ML SUBCUT SCH ×2 (08:15→20:36)
[2019-01-27] MEDS: Metoprolol Succinate XL TAB* 25 MG PO SCH (08:20)
[2019-01-27] MEDS: Apixaban* 5 MG TAB PO SCH ×2 (08:21→20:39)
[2019-01-27] MEDS: PTO: Insulin ASPART (NF) 100 UNIT/ML VIAL SUBCUT SCH ×4 (08:21→20:18)
[2019-01-27] MEDS: DEXLANSOPRAZOLE 30 MG PO SCH (08:22)
[2019-01-27] MEDS: Multivitamins/Minerals TAB PO SCH (08:22)
[2019-01-27] MEDS ORDERED: Furosemide IV* 10 MG/ML VIAL (40 MG) IV ONE (08:31)
[2019-01-27 09:52] LABS: ABS Basophils 0.1 10^3/ul (0-0.2); ABS Eosinophils 0.1 10^3/ul (0-0.6); ABS Lymphocytes 1.2 10^3/ul (1.0-4.8); ABS Monocytes 0.7 10^3/ul (0-0.8); ABS Neutrophils 13.9 10^3/ul (1.5-7.7); Eosinophil % 0.4 %; Hematocrit 33 % (35-47); Hemoglobin 10.8 g/dL (12.0-16.0); Lymphocyte % 7.4 %; Mean Corpuscular HGB Conc 33 g/dL (31-36); Mean Corpuscular Hemoglobin 29 pg (27-31); Mean Corpuscular Volume 88 fL (80-97); Mean Platelet Volume 10.3 fL (7.4-10.4); Platelet Count 168 10^3/uL (150-450); Red Cell Distribution Width 14 % (10-15); White Blood Count 15.9 10^3/uL (3.5-10.8)
[2019-01-27 10:06] LABS: BUN/Creatinine Ratio 14.3 (8-20); Calcium 8.9 mg/dL (8.6-10.3); EGFR African American 51.1 (>60); EGFR Non-African American 42.2 (>60)
[2019-01-27] MEDS ORDERED: Vancomycin Trough Check NOTE FOLLOW UP ONE (10:30)
[2019-01-27] MEDS: Cefepime 1 GM in Dextrose(*) 1 GM/50 ML BAG IV SCH ×2 (11:02→21:41)
[2019-01-27] MEDS: SPIRONOLACTONE 25 MG PO SCH (17:16)
[2019-01-27] MEDS: PTO:Insulin ASPART (NF) 100 UNIT/ML VIAL SUBCUT SCH (17:17)
--- NOTE | 2019-01-27 18:04 | PN ---
Subjective Date of Service: 01/27/19 Interval History: Patient seen and examined. States she is mildly SOB, had CXR early AM for same. Does appear to be volume overloaded. Denies fever or chills. No chest pain, no abdominal pain. leg pain improved. Objective Active Medications: Acetaminophen (Tylenol Tab*) 650 mg PO Q4H PRN PRN Reason: FEVER/PAIN Last Admin: 01/26/19 20:01 Dose: 650 mg Al Hydrox/Mg Hydrox/Simethicone (Maalox Plus*) 30 ml PO Q2H PRN PRN Reason: DYSPEPSIA Last Admin: 01/26/19 20:06 Dose: 30 ml Albuterol (Ventolin 2.5 Mg/3 Ml Neb.Demi*) 2.5 mg INH ONCE PRN PRN Reason: SHORTNESS OF BREATH Last Admin: 01/27/19 05:44 Dose: 2.5 mg Apixaban (Eliquis*) 10 mg PO BID [facility] Stop: 02/01/19 09:01 Last Admin: 01/27/19 08:21 Dose: 10 mg Benzonatate (Tessalon Cap*) 100 mg PO Q6H PRN PRN Reason: COUGH Dexlansoprazole (Dexilant (Nf)) 30 mg PO DAILY [facility] Last Admin: 01/27/19 08:22 Dose: 30 mg Cefepime HCl (Maxipime 1 Gm In Dextrose Duplex (*)) 1 gm in 50 mls @ 100 mls/ hr IV Q12H [facility] Last Admin: 01/27/19 11:02 Dose: 100 mls/hr Vancomycin HCl 1,000 mg/ (Sodium Chloride) 250 mls @ 166.667 mls/hr IVPB Q12H [facility] Last Admin: 01/27/19 12:17 Dose: 166.667 mls/hr Insulin Aspart (Novolog (Nf)) 0 - 10 unit SUBCUT ACHS [facility]; Protocol Last Admin: 01/27/19 17:16 Dose: Not Given Insulin Aspart (Novolog (Nf)) 8 unit SUBCUT 0730,1130 [facility] Insulin Aspart (Novolog (Nf)) 12 unit SUBCUT 1630 [facility] Last Admin: 01/27/19 17:17 Dose: 12 unit Insulin Detemir (Levemir (Nf)) 20 unit SUBCUT BEDTIME [facility] Last Admin: 01/26/19 20:56 Dose: 20 unit Insulin Detemir (Levemir (Nf)) 16 unit SUBCUT 0900 [facility] Last Admin: 01/27/19 08:15 Dose: 16 unit Metoprolol Succinate (Toprol Xl Tab*) 25 mg PO DAILY [facility] Last Admin: 01/27/19 08:20 Dose: 25 mg Multivitamins/Minerals (Theragran/Minerals Tab*) 1 tab PO DAILY [facility] Last Admin: 01/27/19 08:22 Dose: Not Given Ondansetron HCl (Zofran Inj*) 4 mg IV Q6H PRN PRN Reason: NAUSEA Last Admin: 01/26/19 20:04 Dose: 4 mg Pharmacy Consult (Vancomycin Per Pharmacy*) 1 note FOLLOW UP . PRN PRN Reason: PER PROTOCOL Spironolactone (Aldactone Tab*) 25 mg PO DAILY [facility] Last Admin: 01/27/19 17:16 Dose: 25 mg Valsartan (Diovan Tab*) 40 mg PO BEDTIME [facility] Last Admin: 01/26/19 20:45 Dose: 40 mg Vital Signs - 8 hr 01/27/19 01/27/19 11:19 15:15 Temperature 98.2 F 98.4 F Pulse Rate 82 79 Respiratory 20 16 Rate Blood Pressure 136/63 145/49 (mmHg) O2 Sat by Pulse 92 90 Oximetry Oxygen Devices in Use Now: None Appearance: alert, nad Eyes: No Scleral Icterus, PERRLA Ears/Nose/Mouth/Throat: NL Teeth, Lips, Gums, Mucous Membranes Moist Neck: NL Appearance and Movements; NL JVP, Trachea Midline Respiratory: - - tachypneic, increased WOB, bibasilar crackles Cardiovascular: NL Sounds; No Murmurs; No JVD, RRR Abdominal: NL Sounds; No Tenderness; No Distention Skin: - - bilateral cellulitis LE, improving Neurological: Alert and Oriented x 3 Nutrition: Taking PO's Result Diagrams: 01/27/19 09:41 01/27/19 09:41 Microbiology and Other Data: Microbiology 01/25/19 17:46 Aerobic Blood Culture - Preliminary Blood Venous No Growth Day 1 Anaerobic Blood Culture - Preliminary No Growth Day 1 01/25/19 17:46 Aerobic Blood Culture - Preliminary Blood Venous No Growth Day 1 Anaerobic Blood Culture - Preliminary No Growth Day 1 Diagnostic Imaging: Patient Name: SKYLAR SCHILLING Medical Record#: [id number] Ordering Physician: Katie Morales NP Acct.#: [id number] : 1950 Age: 68 Sex: F Location: [address] [place] [address]/TELEMETRY Exam Date: 01/25/192132 ADM Status: ADM IN Order Information: CTA CHEST Accession Number: [id number] CPT: 73328 EXAM: CT Angiography Chest With Contrast EXAM DATE/TIME: 01/25/2019 10:10 PM CLINICAL HISTORY: 68 years old, female; Shortness of breath; Additional info: Chest pain, shortness of breath, left leg dvt TECHNIQUE: Imaging protocol: Axial computed tomographic angiography images of the chest with intravenous contrast using CT angiography protocol. Coronal and sagittal reformatted images were created and reviewed. 3D rendering: MIP reconstructed images were created and reviewed. Radiation optimization: All CT scans at this facility use at least one of these dose optimization techniques: automated exposure control; mA and/or kV adjustment per patient size (includes targeted exams where dose is matched to clinical indication); or iterative reconstruction. Contrast material: VISI 320; Contrast volume: 85 ml; Contrast route: IV; COMPARISON: OT CXR PORTAP CHEST AP OR PORT 01/25/2019 5:01 PM FINDINGS: Pulmonary arteries: Images were acquired with contrast located in both the systemic and pulmonary arterial phase. No evidence of acute pulmonary embolic disease in the main or segmental pulmonary arteries. The distal subsegmental pulmonary arteries are difficult to assess due to the lack of intravenous contrast. Aorta: Atheromatous changes involving the thoracic aorta. No aortic aneurysm or dissection. Lungs: No pulmonary consolidation. Pleural space: No pleural effusion. No pneumothorax. Heart: The heart is of normal size. No pericardial thickening or effusion. Mild coronary calcification. Mediastinum: Large hiatal hernia. No mediastinal mass. Stomach and bowel: A portion of the stomach is located within the thoracic cage. Lymph nodes: No mediastinal adenopathy. Bones/joints: The thoracic cage is intact. Multilevel degenerative thoracic disc disease. No fracture of the thoracic vertebral bodies. No pathologic subluxation. Soft tissues: Unremarkable. IMPRESSION: Less than optimal opacification of the pulmonary arterial system. No evidence of clot in the main pulmonary arteries or segmental pulmonary arteries. The distal subsegmental pulmonary arteries are not adequately opacified. No evidence of right heart strain. [facility] Patient Name:SKYLAR SCHILLING:[id number] : 1950 The study is POSITIVE for nonocclusive thrombus in visualized portions of the left profunda femoris vein, age-indeterminate but new since prior study dated 03/21/15. To contact [facility] with a general question: Operations Center - [phone] For direct physician to physician contact: Physician Hotline - [phone] [facility] ([facility] Facility ID #[id number]) <Electronically signed by Aline Torres MD in OV> 01/25/191928 Dictated By: Aline Torres MD Dictated Date/Time: 01/25/191928 Transcribed Date/Time: Copy to: Assess/Plan/Problems-Billing Assessment: This is a 68 year old female with history of diabetes, lymphedema, HLP, HTN that presented to ED with complaints of LE erythema and pain, admitted for cellulitis and new LLE DVT. - Patient Problems (1) Cellulitis Code(s): L03.90 - CELLULITIS, UNSPECIFIED SNOMED Code(s): 771153238 Comment: - With chronic lymphedema, leukocytosis and fever all improving - Follow cultures, NTD - Will DC vanco, continue cefepime (2) Deep vein thrombosis (DVT) of left lower extremity Code(s): I82.402 - ACUTE EMBOLISM AND THOMBOS UNSP DEEP VEINS OF L LOW EXTREM SNOMED Code(s): 865022804 Comment: - LLE profunda femoris - Loading dose eliquis started 10mg BID for 7 days (3) Hypertension Code(s): I10 - ESSENTIAL (PRIMARY) HYPERTENSION SNOMED Code(s): 97254019 Comment: - Continue toprol 25mg daily home dose and valsartan (4) Morrow esophagus Code(s): K22.70 - MORROW'S ESOPHAGUS WITHOUT DYSPLASIA SNOMED Code(s): 904161879 Comment: - Patient brought her dexilent from home (5) Diabetes Code(s): E11.9 - TYPE 2 DIABETES MELLITUS WITHOUT COMPLICATIONS SNOMED Code(s) : 27208002 Comment: - Insulin dependent, prefers to take her insulin pens from home, pharmacy aware and SS dose adjusted (6) Fluid overload Code(s): E87.70 - FLUID OVERLOAD, UNSPECIFIED SNOMED Code(s): 38703355 Comment: - 2/2 fluid resuscitation, one dose lasix this am, restart aldactone and continue to monitor respiratory status Status and Disposition: Inpatient, dispo to home when medically stable, 1-2 days
[2019-01-27] MEDS: VALSARTAN 40 MG PO SCH (20:39)
[2019-01-28 05:37] LABS: ABS Basophils 0.1 10^3/ul (0-0.2); ABS Eosinophils 0.3 10^3/ul (0-0.6); ABS Lymphocytes 1.7 10^3/ul (1.0-4.8); ABS Monocytes 0.9 10^3/ul (0-0.8); ABS Neutrophils 8.4 10^3/ul (1.5-7.7); Eosinophil % 2.9 %; Hematocrit 29 % (35-47); Lymphocyte % 15.1 %; Mean Corpuscular HGB Conc 34 g/dL (31-36); Mean Corpuscular Hemoglobin 30 pg (27-31); Mean Corpuscular Volume 87 fL (80-97); Mean Platelet Volume 10.8 fL (7.4-10.4); Platelet Count 163 10^3/uL (150-450); Red Blood Count 3.32 10^6 /uL (3.70-4.87); Red Cell Distribution Width 14 % (10-15); White Blood Count 11.4 10^3/uL (3.5-10.8)
[2019-01-28] MEDS ORDERED: PTO:Insulin ASPART (NF) 100 UNIT/ML VIAL SUBCUT SCH (07:30)
[2019-01-28] MEDS: PTO: Insulin ASPART (NF) 100 UNIT/ML VIAL SUBCUT SCH ×4 (08:23→21:53)
[2019-01-28] MEDS: INSULIN DETEMIR 100 UNIT/ML SUBCUT SCH (08:24)
[2019-01-28] MEDS: Apixaban* 5 MG TAB PO SCH ×2 (08:44→21:41)
[2019-01-28] MEDS: DEXLANSOPRAZOLE 30 MG PO SCH (08:47)
[2019-01-28] MEDS: Metoprolol Succinate XL TAB* 25 MG PO SCH (08:47)
[2019-01-28] MEDS: SPIRONOLACTONE 25 MG PO SCH (08:48)
[2019-01-28] MEDS: Multivitamins/Minerals TAB PO SCH (08:50)
--- NOTE | 2019-01-28 10:01 | PN ---
Subjective Date of Service: 01/28/19 Interval History: Ms. Childs reports that she is feeling somewhat better but that she has significant pain in her legs, hips and back. She does note chronic pain in these areas but feels that it is worse. She denies any new pain to the left leg. She believes that the redness to the right leg has improved but the redness to the left leg has worsened. She denies other complaint including chest pain, SOB, nausea, or abdominal pain. Objective Active Medications: Acetaminophen (Tylenol Tab*) 650 mg PO Q4H PRN Al Hydrox/Mg Hydrox/Simethicone (Maalox Plus*) 30 ml PO Q2H PRN Albuterol (Ventolin 2.5 Mg/3 Ml Neb.Demi*) 2.5 mg INH ONCE PRN Apixaban (Eliquis*) 10 mg PO BID ALISON Benzonatate (Tessalon Cap*) 100 mg PO Q6H PRN Dexlansoprazole (Dexilant (Nf)) 30 mg PO DAILY ALISON Cefepime HCl (Maxipime 1 Gm In Dextrose Duplex (*)) 1 gm in 50 mls @ 100 mls/ hr IV Q12H ALISON Insulin Aspart (Novolog (Nf)) 0 - 10 unit SUBCUT ACHS ALISON; Protocol Insulin Aspart (Novolog (Nf)) 12 unit SUBCUT 1630 ALISON Insulin Detemir (Levemir (Nf)) 20 unit SUBCUT BEDTIME ALISON Metoprolol Succinate (Toprol Xl Tab*) 25 mg PO DAILY ALISON Multivitamins/Minerals (Theragran/Minerals Tab*) 1 tab PO DAILY ALISON Ondansetron HCl (Zofran Inj*) 4 mg IV Q6H PRN Spironolactone (Aldactone Tab*) 25 mg PO DAILY ALISON Valsartan (Diovan Tab*) 40 mg PO BEDTIME ALISON Vital Signs: Temp Pulse Resp BP Pulse Ox 98 F 62 20 128/55 93 01/28/19 07:17 01/28/19 07:17 01/28/19 07:17 01/28/19 07:17 01/28/19 07:17 Oxygen Devices in Use Now: None Appearance: Female lying in bed in NAD Eyes: No Scleral Icterus Ears/Nose/Mouth/Throat: Mucous Membranes Moist Neck: Trachea Midline Respiratory: Symmetrical Chest Expansion and Respiratory Effort, Clear to Auscultation Cardiovascular: - - +3 LE edema Abdominal: NL Sounds; No Tenderness; No Distention, No Hepatosplenomegaly Extremities: - - +3 LE edema Skin: - - Multilple small ulcerations in various stages of healing to bilateral tibia, no drainage Neurological: Alert and Oriented x 3, NL Muscle Strength and Tone Nutrition: Taking PO's Result Diagrams: 01/28/19 05:08 01/27/19 09:41 Microbiology and Other Data: . Diagnostic Imaging: . Assess/Plan/Problems-Billing Assessment: Ms. Childs is a 68 year old female with history of diabetes, lymphedema, HLP, HTN that presented to ED with complaints of LE erythema and pain, admitted for cellulitis and new LLE DVT. 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 (4) Diabetes Comment: - Hypoglycemic to 40s overnight. - AM insulin held, will monitor and re-introduce insulin as appropriate. (5) Fluid overload Comment: - Resolved - 2/2 fluid resuscitation, one dose lasix yesterday (6) Hypertension Comment: - BP well controlled - Continue toprol 25mg daily home dose and valsartan (7) Lymphedema SNOMED Code(s): 160593285 Comment: - Elevate LEs - Recommend follow up with [facility] PT or [facility]. (8) DVT prophylaxis Comment: - Continue eliquis as per above. (9) Full code status Comment: Status and Disposition: Inpatient, dispo to home when medically stable, 1-2 days
[2019-01-28] MEDS: Cefepime 1 GM in Dextrose(*) 1 GM/50 ML BAG IV SCH ×2 (10:32→23:28)
[2019-01-28] MEDS: PTO:Insulin ASPART (NF) 100 UNIT/ML VIAL SUBCUT SCH (18:42)
[2019-01-28] MEDS: Acetaminophen TAB* 325 MG PO PRN (21:36)
[2019-01-28] MEDS: VALSARTAN 40 MG PO SCH (21:42)
--- NOTE | 2019-01-29 07:26 | PN ---
Subjective Date of Service: 01/29/19 Interval History: Ms. Childs reports that she has various complaints that are acute and more than are chronic. Primarily she complains that she has a pain in her right groin. She feels this pain when she coughs and when she lifted her leg to get into bed. She notes that she was able to ambulate in the hallways yesterday. However, to ambulate she put on her pants and they were very tight around her calves and while pulling these off she developed a skin tear to the posterior calf. She notes that after ambulating her left leg was bright red and painful. After lying in bed overnight she notes that the redness and warmth is better. Objective Active Medications: Acetaminophen (Tylenol Tab*) 650 mg PO Q4H PRN Al Hydrox/Mg Hydrox/Simethicone (Maalox Plus*) 30 ml PO Q2H PRN Albuterol (Ventolin 2.5 Mg/3 Ml Neb.Demi*) 2.5 mg INH ONCE PRN Apixaban (Eliquis*) 10 mg PO BID ALISON Benzonatate (Tessalon Cap*) 100 mg PO Q6H PRN Dexlansoprazole (Dexilant (Nf)) 30 mg PO DAILY ALISON Cefepime HCl (Maxipime 1 Gm In Dextrose Duplex (*)) 1 gm in 50 mls @ 100 mls/ hr IV Q12H ALISON Insulin Aspart (Novolog (Nf)) 0 - 10 unit SUBCUT ACHS ALISON; Protocol Metoprolol Succinate (Toprol Xl Tab*) 25 mg PO DAILY ALISON Multivitamins/Minerals (Theragran/Minerals Tab*) 1 tab PO DAILY ALISON Ondansetron HCl (Zofran Inj*) 4 mg IV Q6H PRN Spironolactone (Aldactone Tab*) 25 mg PO DAILY LAISON Valsartan (Diovan Tab*) 40 mg PO BEDTIME ALISON Vital Signs: Temp Pulse Resp BP Pulse Ox 97.4 F 62 18 118/61 98 01/29/19 03:15 01/29/19 03:15 01/29/19 03:15 01/29/19 03:15 01/29/19 03:15 Oxygen Devices in Use Now: None Appearance: Female lying in bed in NAD Eyes: No Scleral Icterus Ears/Nose/Mouth/Throat: Mucous Membranes Moist Neck: Trachea Midline Respiratory: Symmetrical Chest Expansion and Respiratory Effort, Clear to Auscultation Cardiovascular: NL Sounds; No Murmurs; No JVD, - - +3 edema Abdominal: - - Soft, tenderness to deep palpation in Right groin Extremities: - - +3 edema Skin: - - area of skin breakdown to posterior calf, weeping serous fluid on the anterior aspect Neurological: Alert and Oriented x 3, NL Muscle Strength and Tone Nutrition: Taking PO's Result Diagrams: 01/28/19 05:08 01/29/19 10:23 Microbiology and Other Data: . Diagnostic Imaging: . Assess/Plan/Problems-Billing Assessment: Ms. Childs is a 68 year old female with history of diabetes, lymphedema, HLP, HTN that presented to ED with complaints of LE erythema and pain, admitted for cellulitis and new LLE DVT. 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 (5) Diabetes Comment: - Hypoglycemic to 40s 01/28/19, BG 130s this AM - Stop long acting insulin, plan to use SSI coverage only for now (6) Fluid overload Comment: - Resolved - 2/2 fluid resuscitation, one dose lasix (7) Hypertension Comment: - BP well controlled - Continue toprol 25mg daily home dose and valsartan (8) Lymphedema SNOMED Code(s): 973414551 Comment: - Elevate LEs - Recommend follow up with [facility] or [facility]. (9) DVT prophylaxis Comment: - Continue eliquis as per above. (10) Full code status Comment: Status and Disposition: Inpatient, dispo to home when medically stable
[2019-01-29] MEDS: DEXLANSOPRAZOLE 30 MG PO SCH (09:28)
[2019-01-29] MEDS: Cefepime 1 GM in Dextrose(*) 1 GM/50 ML BAG IV SCH ×2 (09:31→21:45)
[2019-01-29] MEDS: PTO: Insulin ASPART (NF) 100 UNIT/ML VIAL SUBCUT SCH ×4 (09:43→21:47)
[2019-01-29] MEDS: Apixaban* 5 MG TAB PO SCH ×2 (09:43→21:43)
[2019-01-29] MEDS: Metoprolol Succinate XL TAB* 25 MG PO SCH (09:44)
[2019-01-29] MEDS: Multivitamins/Minerals TAB PO SCH (09:44)
[2019-01-29] MEDS: SPIRONOLACTONE 25 MG PO SCH (09:44)
[2019-01-29] MEDS: Acetaminophen TAB* 325 MG PO PRN ×2 (09:45→18:38)
[2019-01-29] MEDS: Benzonatate CAP* 100 MG PO PRN ×2 (09:46→18:37)
[2019-01-29 10:54] LABS: EGFR African American 69.9 (>60); EGFR Non-African American 57.8 (>60)
[2019-01-29 11:11] LABS: Vancomycin Trough 5.1 mcg/mL
[2019-01-29] MEDS: VALSARTAN 40 MG PO SCH (21:44)
[2019-01-30] MEDS: DEXLANSOPRAZOLE 30 MG PO SCH (08:06)
[2019-01-30] MEDS: SPIRONOLACTONE 25 MG PO SCH (08:06)
[2019-01-30] MEDS: Metoprolol Succinate XL TAB* 25 MG PO SCH (08:06)
[2019-01-30] MEDS: Multivitamins/Minerals TAB PO SCH (08:07)
[2019-01-30] MEDS: Apixaban* 5 MG TAB PO SCH ×2 (08:07→21:34)
[2019-01-30] MEDS: PTO: Insulin ASPART (NF) 100 UNIT/ML VIAL SUBCUT SCH ×2 (08:07→15:04)
[2019-01-30] MEDS ORDERED: Insulin GLARGINE(*) 1 UNITS UNIT SUBCUT SCH (09:00)
[2019-01-30 10:32] LABS: ABS Basophils 0.1 10^3/ul (0-0.2); ABS Eosinophils 0.3 10^3/ul (0-0.6); ABS Lymphocytes 1.9 10^3/ul (1.0-4.8); ABS Monocytes 0.7 10^3/ul (0-0.8); ABS Neutrophils 7.3 10^3/ul (1.5-7.7); Eosinophil % 3.3 %; Hematocrit 31 % (35-47); Hemoglobin 10.4 g/dL (12.0-16.0); Lymphocyte % 18.5 %; Mean Corpuscular HGB Conc 34 g/dL (31-36); Mean Corpuscular Hemoglobin 29 pg (27-31); Mean Corpuscular Volume 86 fL (80-97); Mean Platelet Volume 9.9 fL (7.4-10.4); Nucleated Red Blood Cells % 0.1; Platelet Count 251 10^3/uL (150-450); Red Blood Count 3.54 10^6 /uL (3.70-4.87); Red Cell Distribution Width 13 % (10-15); White Blood Count 10.4 10^3/uL (3.5-10.8)
[2019-01-30] MEDS: Cefepime 1 GM in Dextrose(*) 1 GM/50 ML BAG IV SCH ×2 (10:34→21:34)
[2019-01-30 10:49] LABS: BUN/Creatinine Ratio 13.2 (8-20); Calcium 8.7 mg/dL (8.6-10.3); EGFR African American 62.4 (>60); EGFR Non-African American 51.6 (>60); Magnesium 2.3 mg/dL (1.9-2.7); Potassium 3.6 mmol/L (3.5-5.0)
[2019-01-30] MEDS: PTO:Insulin ASPART (NF) 100 UNIT/ML VIAL SUBCUT SCH ×3 (15:01→18:59)
--- NOTE | 2019-01-30 18:18 | PN ---
Subjective Date of Service: 01/30/19 Interval History: Patient resting in bed on assessment. Patient reports she has had "multiple set backs", but when asked to clarify she reports struggles with getting her medications at the time she usually takes them at home and nurses assuming her previous shortness of breath was "anxiety". She denies any physical "set backs" at this time. She reports she does not feel safe for discharge until she has "answers" to why this happened. Patient reports she did have an episode of chest pain last evening, therefore, EKG was obtained and patient has has serial trops. Patient reports her chest pain felt more like "gerd" due to her "barrets" which she attributed to not getting her medications on time as she does at home. Patient currently denies cp, sob, palpitations, nausea, vomiting, fever, chills. Objective Active Medications: Acetaminophen (Tylenol Tab*) 650 mg PO Q4H PRN PRN Reason: FEVER/PAIN Last Admin: 01/29/19 18:38 Dose: 650 mg Al Hydrox/Mg Hydrox/Simethicone (Maalox Plus*) 30 ml PO Q2H PRN PRN Reason: DYSPEPSIA Last Admin: 01/26/19 20:06 Dose: 30 ml Albuterol (Ventolin 2.5 Mg/3 Ml Neb.Demi*) 2.5 mg INH ONCE PRN PRN Reason: SHORTNESS OF BREATH Last Admin: 01/27/19 05:44 Dose: 2.5 mg Apixaban (Eliquis*) 10 mg PO BID [facility] Stop: 02/01/19 09:01 Last Admin: 01/30/19 08:07 Dose: 10 mg Benzonatate (Tessalon Cap*) 100 mg PO Q6H PRN PRN Reason: COUGH Last Admin: 01/29/19 18:37 Dose: 100 mg Dexlansoprazole (Dexilant (Nf)) 30 mg PO DAILY [facility] Last Admin: 01/30/19 08:06 Dose: 30 mg Cefepime HCl (Maxipime 1 Gm In Dextrose Duplex (*)) 1 gm in 50 mls @ 100 mls/ hr IV Q12H [facility] Last Admin: 01/30/19 10:34 Dose: 100 mls/hr Insulin Aspart (Novolog (Nf)) 0 unit SUBCUT TID WITH MEALS [facility] Last Admin: 01/30/19 15:01 Dose: 6 unit Insulin Aspart (Novolog (Nf)) 8 unit SUBCUT BID@0800,1200 [facility] Insulin Aspart (Novolog (Nf)) 12 unit SUBCUT DAILY@1700 [facility] Metoprolol Succinate (Toprol Xl Tab*) 25 mg PO DAILY [facility] Last Admin: 01/30/19 08:06 Dose: 25 mg Multivitamins/Minerals (Theragran/Minerals Tab*) 1 tab PO DAILY [facility] Last Admin: 01/30/19 08:07 Dose: 1 tab Ondansetron HCl (Zofran Inj*) 4 mg IV Q6H PRN PRN Reason: NAUSEA Last Admin: 01/26/19 20:04 Dose: 4 mg Spironolactone (Aldactone Tab*) 25 mg PO DAILY [facility] Last Admin: 01/30/19 08:06 Dose: 25 mg Valsartan (Diovan Tab*) 40 mg PO BEDTIME [facility] Vital Signs - 8 hr 01/30/19 01/30/19 11:31 15:14 Temperature 98.3 F 97.4 F Pulse Rate 64 67 Respiratory 20 16 Rate Blood Pressure 149/56 151/58 (mmHg) O2 Sat by Pulse 97 98 Oximetry Oxygen Devices in Use Now: None Appearance: Comfortable, NAD Eyes: No Scleral Icterus Ears/Nose/Mouth/Throat: Clear Oropharnyx, Mucous Membranes Moist Neck: NL Appearance and Movements; NL JVP Respiratory: Symmetrical Chest Expansion and Respiratory Effort, Clear to Auscultation Cardiovascular: NL Sounds; No Murmurs; No JVD, - - Bilateral LE edema Abdominal: NL Sounds; No Tenderness; No Distention Lymphatic: No Cervical Adenopathy Extremities: - - Bilateral LE redness with left worse than right. Left LE also feels warm to touch and slight redness has increased past previously marked boarder Skin: - - As above Neurological: Alert and Oriented x 3 Nutrition: Taking PO's Result Diagrams: 01/30/19 10:11 01/30/19 10:11 Additional Lab and Data: Laboratory Results - last 24 hr 01/29/19 01/30/19 01/30/19 20:08 03:54 07:00 WBC RBC Hgb Hct MCV MCH MCHC RDW Plt Count MPV Neut % (Auto) Lymph % (Auto) Stearns % (Auto) Eos % (Auto) Baso % (Auto) Absolute Neuts (auto) Absolute Lymphs (auto) Absolute Monos (auto) Absolute Eos (auto) Absolute Basos (auto) Absolute Nucleated RBC Nucleated RBC % Sodium Potassium Chloride Carbon Dioxide Anion Gap BUN Creatinine Est GFR ( Amer) Est GFR (Non-Af Amer) BUN/Creatinine Ratio Glucose POC Glucose (mg/dL) 148 H Calcium Magnesium Troponin I 0.00 0.00 01/30/19 01/30/19 01/30/19 07:21 10:11 10:11 WBC 10.4 RBC 3.54 L Hgb 10.4 L Hct 31 L MCV 86 MCH 29 MCHC 34 RDW 13 Plt Count 251 MPV 9.9 Neut % (Auto) 70.4 Lymph % (Auto) 18.5 Stearns % (Auto) 6.9 Eos % (Auto) 3.3 Baso % (Auto) 0.9 Absolute Neuts (auto) 7.3 Absolute Lymphs (auto) 1.9 Absolute Monos (auto) 0.7 Absolute Eos (auto) 0.3 Absolute Basos (auto) 0.1 Absolute Nucleated RBC 0.0 Nucleated RBC % 0.1 Sodium Potassium Chloride Carbon Dioxide Anion Gap BUN Creatinine Est GFR ( Amer) Est GFR (Non-Af Amer) BUN/Creatinine Ratio Glucose POC Glucose (mg/dL) 154 H Calcium Magnesium Troponin I 0.00 01/30/19 01/30/19 01/30/19 10:11 12:04 15:02 WBC RBC Hgb Hct MCV MCH MCHC RDW Plt Count MPV Neut % (Auto) Lymph % (Auto) Stearns % (Auto) Eos % (Auto) Baso % (Auto) Absolute Neuts (auto) Absolute Lymphs (auto) Absolute Monos (auto) Absolute Eos (auto) Absolute Basos (auto) Absolute Nucleated RBC Nucleated RBC % Sodium 138 Potassium 3.6 Chloride 106 Carbon Dioxide 25 Anion Gap 7 BUN 14 Creatinine 1.06 H Est GFR ( Amer) 62.4 Est GFR (Non-Af Amer) 51.6 BUN/Creatinine Ratio 13.2 Glucose 208 H POC Glucose (mg/dL) 199 H 280 H Calcium 8.7 Magnesium 2.3 Troponin I 01/30/19 17:21 WBC RBC Hgb Hct MCV MCH MCHC RDW Plt Count MPV Neut % (Auto) Lymph % (Auto) Stearns % (Auto) Eos % (Auto) Baso % (Auto) Absolute Neuts (auto) Absolute Lymphs (auto) Absolute Monos (auto) Absolute Eos (auto) Absolute Basos (auto) Absolute Nucleated RBC Nucleated RBC % Sodium Potassium Chloride Carbon Dioxide Anion Gap BUN Creatinine Est GFR ( Amer) Est GFR (Non-Af Amer) BUN/Creatinine Ratio Glucose POC Glucose (mg/dL) 163 H Calcium Magnesium Troponin I Microbiology and Other Data: Microbiology 01/25/19 17:46 Blood Venous Aerobic Blood Culture - Final No Growth Day 5 01/25/19 17:46 Blood Venous Anaerobic Blood Culture - Final No Growth Day 5 01/25/19 17:46 Blood Venous Aerobic Blood Culture - Final No Growth Day 5 01/25/19 17:46 Blood Venous Anaerobic Blood Culture - Final No Growth Day 5 Diagnostic Imaging: . Assess/Plan/Problems-Billing Assessment: Ms. Childs is a 68 year old female with history of diabetes, lymphedema, HLP, HTN that presented to ED with complaints of LE erythema and pain, admitted for cellulitis and new LLE DVT. - Patient Problems (1) Cellulitis Comment: - Mild redness extending past previous marked line on LLE. Also area is warm to touch. - ID consult requested. 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 (3) Deep vein thrombosis (DVT) of left lower extremity Comment: - LLE superficial femoral vein - Loading dose eliquis 10mg BID for 7 days (4) Diabetes Comment: - Elevated blood sugars today. - Restarted patient on home dosing of Aspart - Hold patient's long acting insulin for now given pervious hypoglycemia - Monitor closely (5) Fluid overload Comment: - Resolved - 2/2 fluid resuscitation, one dose lasix - Cont home Aldactone - Monitor lytes (6) Hypertension Comment: - BP well controlled - Continue toprol 25mg daily home dose and valsartan (7) Lymphedema Comment: - Elevate LEs - Recommend follow up with [facility] or [facility]. (8) Right groin pain Comment: - Pain only with coughing or lifting leg - Suspect in musculoskeletal, no evidence of hernia - Will monitor (9) DVT prophylaxis Comment: - Continue eliquis as per above. (10) Full code status Comment: Status and Disposition: Inpatient, dispo to home when medically stable Attending: Savita Springer
[2019-01-30] MEDS: VALSARTAN 40 MG PO SCH (21:34)
[2019-01-30] MEDS: Acetaminophen TAB* 325 MG PO PRN (23:24)
[2019-01-31 06:18] LABS: ABS Basophils 0.1 10^3/ul (0-0.2); ABS Eosinophils 0.4 10^3/ul (0-0.6); ABS Lymphocytes 2.4 10^3/ul (1.0-4.8); ABS Monocytes 0.9 10^3/ul (0-0.8); Eosinophil % 3.7 %; Hematocrit 30 % (35-47); Lymphocyte % 20.8 %; Mean Corpuscular HGB Conc 33 g/dL (31-36); Mean Corpuscular Hemoglobin 29 pg (27-31); Mean Corpuscular Volume 88 fL (80-97); Nucleated Red Blood Cells % 0.1; Platelet Count 250 10^3/uL (150-450); Red Blood Count 3.39 10^6 /uL (3.70-4.87); Red Cell Distribution Width 14 % (10-15); White Blood Count 11.8 10^3/uL (3.5-10.8)
[2019-01-31 06:31] LABS: BUN/Creatinine Ratio 14.4 (8-20); Calcium 8.5 mg/dL (8.6-10.3); EGFR African American 69.1 (>60); EGFR Non-African American 57.1 (>60); Potassium 3.6 mmol/L (3.5-5.0)
[2019-01-31] MEDS: Apixaban* 5 MG TAB PO SCH ×2 (08:50→20:21)
[2019-01-31] MEDS: Multivitamins/Minerals TAB PO SCH (08:50)
[2019-01-31] MEDS: SPIRONOLACTONE 25 MG PO SCH (08:51)
[2019-01-31] MEDS: DEXLANSOPRAZOLE 30 MG PO SCH (08:51)
[2019-01-31] MEDS: Metoprolol Succinate XL TAB* 25 MG PO SCH (08:52)
[2019-01-31] MEDS: PTO:Insulin ASPART (NF) 100 UNIT/ML VIAL SUBCUT SCH ×7 (08:57→21:17)
[2019-01-31] MEDS: Cefepime 1 GM in Dextrose(*) 1 GM/50 ML BAG IV SCH (10:17)
[2019-01-31] MEDS: Acetaminophen TAB* 325 MG PO PRN (11:19)
--- NOTE | 2019-01-31 16:11 | CONS ---
CONSULTATION REPORT: DATE OF CONSULT: 01/31/19 REQUESTING PROVIDER: Sabina Dietz NP. CONSULTING SERVICE: Infectious Disease. REASON FOR CONSULT: Leg cellulitis. IMPRESSION: 1. Chronic lymphedema and right greater than left acute cellulitis, the right side is nearly resolved, the left is improving. There are some bullae formation , I suspect group A streptococcus. 2. Left profunda femoris vein, nonocclusive thrombus. 3. Insulin-dependent diabetes mellitus. 4. Obesity. RECOMMENDATIONS: We will change her antibiotics to clindamycin 600 mg IV every 8 hours while she is here and as long as she is still continuing by tomorrow might be able to change her to oral antibiotics to complete a course here. For now, we will plan on keeping her legs clean with soap and water, moisturizing as able and Cosmo wrap. HISTORY OF PRESENT ILLNESS: This is a 68-year-old woman with lymphedema and venous insufficiency, had had a left anterior leg cellulitis about 2 years ago. About a week ago, she developed fever, chills, sweats, and left greater than right leg redness and swelling. Because of the symptoms, she was routed to the emergency room by her primary's office. At admission, white count was 18,000. She had a fever of 103 at home, none here. Ultrasound report showed DVT as noted above. She was started on Eliquis. The redness in the right leg has gotten much better over the last couple of days, the left leg is slower to improve and has been more swollen and then seemed to get worse overnight with worsening redness in the back of the leg, but that has also started to fade today as well. PAST MEDICAL HISTORY: 1. Insulin-dependent diabetes mellitus. 2. Obesity. 3. Irritable bowel syndrome. 4. Hypertension. 5. Gastroesophageal reflux disease. 6. Mcelroy esophagus. 7. Lymphedema. 8. Status post hysterectomy. 9. Status post breast reduction. 10. Status post excision of spinal cyst and fusion in the lumbar and sacral spine. MEDICATIONS: 1. Tylenol. 2. Albuterol as needed. 3. Apixaban. 4. Cefepime 1 g every 12 hours. 5. Dexlansoprazole. 6. Insulin aspart. 7. Metoprolol. 8. Multivitamin. 9. Spironolactone. 10. Valsartan. ALLERGIES: IBUPROFEN, METFORMIN, NSAIDs. FAMILY HISTORY: Father had coronary disease and a bypass at age 85. Mother had skin cancer, basal cell carcinoma. SOCIAL HISTORY: She lives in [place]. She is a nonsmoker. She has no sick contacts. REVIEW OF SYSTEMS: A 12-point review was all negative except as noted above in the history of present illness. PHYSICAL EXAM: Vital Signs: Temperature 36.4, heart rate 64, respiratory rate 16, blood pressure 124/66, oxygen saturation 97% on room air. General: She is awake, not in distress. Neurologic: She is oriented x3. Follows all commands. Sensation is decreased to light touch in both feet. HEENT: There is no conjunctival hemorrhage. Oropharynx without lesions. Neck: Neck is supple without mass. Heart is regular rate and rhythm without murmurs, rubs, or gallops. Lungs are clear to auscultation bilaterally. Abdomen: Soft, nontender , nondistended. There are bowel sounds present. Skin: There is no splinter hemorrhage. There are a couple of small right lower anterior leg eschar with surrounding mild erythema. There are larger left anterior leg eschar and superficial bullae with some surrounding erythema. There is left calf more intense erythema and induration with some tenderness. No fluctuance or crepitans. DIAGNOSTIC STUDIES/LAB DATA: White blood cell count 11.8, hemoglobin 10, platelets 250, creatinine 0.9. Please see impressions and recommendations outlined above, which I have discussed with Sabina Dietz NP. Thanks for asking me to see Ms. Childs in consultation. [id number]/[facility] #: [id number] [facility] CENTERKrystyna
[2019-01-31] MEDS: Clindamycin 600 MG IVPREMIX(* 600 MG/50 ML SDV IV SCH ×2 (16:33→23:04)
--- NOTE | 2019-01-31 16:55 | PN ---
Subjective Date of Service: 01/31/19 Interval History: Discussed patient and plan with Dr Rubin. Evaluated patient at bedside. Reports she understands and agrees with plan. Denies pain, fever, chills, cp, sob. Objective Active Medications: Acetaminophen (Tylenol Tab*) 650 mg PO Q4H PRN PRN Reason: FEVER/PAIN Last Admin: 01/31/19 11:19 Dose: 650 mg Al Hydrox/Mg Hydrox/Simethicone (Maalox Plus*) 30 ml PO Q2H PRN PRN Reason: DYSPEPSIA Last Admin: 01/26/19 20:06 Dose: 30 ml Albuterol (Ventolin 2.5 Mg/3 Ml Neb.Demi*) 2.5 mg INH ONCE PRN PRN Reason: SHORTNESS OF BREATH Last Admin: 01/27/19 05:44 Dose: 2.5 mg Apixaban (Eliquis*) 10 mg PO BID [facility] Stop: 02/01/19 09:01 Last Admin: 01/31/19 08:50 Dose: 10 mg Benzonatate (Tessalon Cap*) 100 mg PO Q6H PRN PRN Reason: COUGH Last Admin: 01/29/19 18:37 Dose: 100 mg Dexlansoprazole (Dexilant (Nf)) 30 mg PO DAILY [facility] Last Admin: 01/31/19 08:51 Dose: 30 mg Clindamycin HCl/Dextrose (Cleocin 600 Mg Ivpremix(*) Sdv) 600 mg in 50 mls @ 100 mls/hr IV Q8H [facility] Last Admin: 01/31/19 16:33 Dose: 100 mls/hr Insulin Aspart (Novolog (Nf)) 0 unit SUBCUT TID WITH MEALS [facility] Last Admin: 01/31/19 12:42 Dose: 4 unit Insulin Aspart (Novolog (Nf)) 8 unit SUBCUT BID@0800,1200 [facility] Last Admin: 01/31/19 12:41 Dose: 8 unit Insulin Aspart (Novolog (Nf)) 12 unit SUBCUT DAILY@1700 [facility] Last Admin: 01/30/19 18:58 Dose: 8 units Metoprolol Succinate (Toprol Xl Tab*) 25 mg PO DAILY [facility] Last Admin: 01/31/19 08:52 Dose: 25 mg Multivitamins/Minerals (Theragran/Minerals Tab*) 1 tab PO DAILY [facility] Last Admin: 01/31/19 08:50 Dose: 1 tab Ondansetron HCl (Zofran Inj*) 4 mg IV Q6H PRN PRN Reason: NAUSEA Last Admin: 01/26/19 20:04 Dose: 4 mg Spironolactone (Aldactone Tab*) 25 mg PO DAILY [facility] Last Admin: 01/31/19 08:51 Dose: 25 mg Valsartan (Diovan Tab*) 40 mg PO BEDTIME [facility] Last Admin: 01/30/19 21:34 Dose: 40 mg Vital Signs - 8 hr 01/31/19 11:15 Temperature 97.5 F Pulse Rate 64 Respiratory 16 Rate Blood Pressure 124/66 (mmHg) O2 Sat by Pulse 97 Oximetry Oxygen Devices in Use Now: None Appearance: Comfortable, NAD Eyes: No Scleral Icterus Ears/Nose/Mouth/Throat: Clear Oropharnyx, Mucous Membranes Moist Neck: NL Appearance and Movements; NL JVP Respiratory: Symmetrical Chest Expansion and Respiratory Effort, Clear to Auscultation Cardiovascular: NL Sounds; No Murmurs; No JVD, RRR, - - Bilateral LE edema. Hx of lymphedema Abdominal: NL Sounds; No Tenderness; No Distention Lymphatic: No Cervical Adenopathy Extremities: No Clubbing, Cyanosis Skin: - - Bilateral leg cellulitis. Intact bullae on left anterior and left posterior lower extremity Neurological: Alert and Oriented x 3, NL Muscle Strength and Tone Result Diagrams: 01/31/19 05:25 01/31/19 05:25 Additional Lab and Data: Laboratory Results - last 24 hr 01/30/19 01/30/19 01/31/19 17:21 21:30 05:25 WBC 11.8 H RBC 3.39 L Hgb 10.0 L Hct 30 L MCV 88 MCH 29 MCHC 33 RDW 14 Plt Count 250 MPV 10.0 Neut % (Auto) 67.5 Lymph % (Auto) 20.8 [place] % (Auto) 7.3 Eos % (Auto) 3.7 Baso % (Auto) 0.7 Absolute Neuts (auto) 8.0 H Absolute Lymphs (auto) 2.4 Absolute Monos (auto) 0.9 H Absolute Eos (auto) 0.4 Absolute Basos (auto) 0.1 Absolute Nucleated RBC 0.0 Nucleated RBC % 0.1 Sodium Potassium Chloride Carbon Dioxide Anion Gap BUN Creatinine Est GFR ( Amer) Est GFR (Non-Af Amer) BUN/Creatinine Ratio Glucose POC Glucose (mg/dL) 163 H 159 H Calcium 01/31/19 01/31/19 01/31/19 05:25 07:26 11:22 WBC RBC Hgb Hct MCV MCH MCHC RDW Plt Count MPV Neut % (Auto) Lymph % (Auto) [place] % (Auto) Eos % (Auto) Baso % (Auto) Absolute Neuts (auto) Absolute Lymphs (auto) Absolute Monos (auto) Absolute Eos (auto) Absolute Basos (auto) Absolute Nucleated RBC Nucleated RBC % Sodium 140 Potassium 3.6 Chloride 108 Carbon Dioxide 24 Anion Gap 8 BUN 14 Creatinine 0.97 H Est GFR ( Amer) 69.1 Est GFR (Non-Af Amer) 57.1 BUN/Creatinine Ratio 14.4 Glucose 155 H POC Glucose (mg/dL) 153 H 222 H Calcium 8.5 L Microbiology and Other Data: Microbiology 01/25/19 17:46 Aerobic Blood Culture - Final Blood Venous No Growth Day 5 Anaerobic Blood Culture - Final No Growth Day 5 01/25/19 17:46 Aerobic Blood Culture - Final Blood Venous No Growth Day 5 Anaerobic Blood Culture - Final No Growth Day 5 Diagnostic Imaging: . Assess/Plan/Problems-Billing Assessment: Ms. Childs is a 68 year old female with history of diabetes, lymphedema, HLP, HTN that presented to ED with complaints of LE erythema and pain, admitted for cellulitis and new LLE DVT. - Patient Problems (1) Cellulitis Comment: - Evaluated by wound consult today. Please see wound note - Continues to have mild redness to bilateral LE. Bullae to LLE - ID consulting. Abx to be changed to Clindamycin - Leukocytosis improved, but slight increase today. 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 (3) Deep vein thrombosis (DVT) of left lower extremity Comment: - LLE superficial femoral vein - Loading dose eliquis 10mg BID for 7 days than 5 mg BID (4) Diabetes Comment: - Elevated blood sugars today. - Restarted patient on home dosing of Aspart - Hold patient's long acting insulin for now given pervious hypoglycemia - Monitor closely (5) Fluid overload Comment: - Resolved - 2/2 fluid resuscitation, one dose lasix - Cont home Aldactone - Monitor lytes (6) Hypertension Comment: - BP well controlled - Continue toprol 25mg daily home dose and valsartan (7) Lymphedema Comment: - Elevate LEs - Recommend follow up with [facility] or [facility]. (8) Right groin pain Comment: - Pain only with coughing or lifting leg - Suspect in musculoskeletal, no evidence of hernia - Will monitor (9) DVT prophylaxis Comment: - Continue eliquis as per above. (10) Full code status Comment: Status and Disposition: Inpatient, dispo to home when medically stable Attending: Savita Springer
--- NOTE | 2019-01-31 17:44 | CONSULT ---
Subjective Date of Service: 01/31/19 Interval History: Ms. Childs is a 68 yo female with PMH significant for DM2, morbid obesity, IBS , HTN, GERD, Mcelroy's esophagus, bilateral LE lymphedema, and venous insufficiency. She presented to the emergency room with complaints of fever, chills, and increased redness and swelling of her right leg. She was admitted to the hospital with bilateral LE cellulitis. She reports that the wounds to her left leg have been present for about 1 week, and the other leg with open areas for "sometime". She has had bilateral LE edema since the fall of 2016. She has been seen by the local lymphedema clinic in the past. She has lymphedema "pumps" at home. She feels like the right LE wounds are improving, but the left leg continues to be about the same. She reports a sharp pain in both legs, with the left leg worse than the right. Patient seen and examined at bedside. Family History: Unchanged from Admission Social History: Unchanged from Admission Past Medical History: Unchanged from Admission Review of Systems - Measurements Intake and Output: Intake and Output Last 24 Hours 01/29/19 01/30/19 01/31/19 02/01/19 06:59 06:59 06:59 06:59 Intake Total 615 1570 890 770 Output Total 0 0 0 0 Balance 615 1570 890 770 Weight 230 lb 11.2 oz Intake: IV Fluids 30 200 ABX - CEFEPIME 10 100 ABX - VANCOMYCIN 0 NS (0.9%) 20 100 IVPB 105 50 50 50 ABX - CEFEPIME 105 50 50 50 ABX - VANCOMYCIN 0 NS (0.9%) 0 Oral 480 1320 840 720 Output: Urine 0 0 0 0 - Review of Systems Constitutional Symptoms: Negative: Fever, Other - Chills Endocrinology: Positive: Obesity, Diabetes Mellitus Hematologic/Lymphatic: Positive: Other - Bilateral LE lymphedema Objective Active Medications: Acetaminophen (Tylenol Tab*) 650 mg PO Q4H PRN Reason: FEVER/PAIN Al Hydrox/Mg Hydrox/Simethicone (Maalox Plus*) 30 ml PO Q2H PRN Reason: DYSPEPSIA Albuterol (Ventolin 2.5 Mg/3 Ml Neb.Demi*) 2.5 mg INH ONCE PRN Reason: SHORTNESS OF BREATH Apixaban (Eliquis*) 10 mg PO BID [facility] Stop: 02/01/19 09:01 Benzonatate (Tessalon Cap*) 100 mg PO Q6H PRN Reason: COUGH Dexlansoprazole (Dexilant (Nf)) 30 mg PO DAILY [facility] Clindamycin HCl/Dextrose (Cleocin 600 Mg Ivpremix(*) Sdv) 600 mg in 50 mls @ 100 mls/hr IV Q8H [facility] Insulin Aspart (Novolog (Nf)) 0 unit SUBCUT TID WITH MEALS [facility] Insulin Aspart (Novolog (Nf)) 8 unit SUBCUT BID@0800,1200 [facility] Insulin Aspart (Novolog (Nf)) 12 unit SUBCUT DAILY@1700 [facility] Metoprolol Succinate (Toprol Xl Tab*) 25 mg PO DAILY [facility] Multivitamins/Minerals (Theragran/Minerals Tab*) 1 tab PO DAILY [facility] Ondansetron HCl (Zofran Inj*) 4 mg IV Q6H PRN Reason: NAUSEA Spironolactone (Aldactone Tab*) 25 mg PO DAILY [facility] Valsartan (Diovan Tab*) 40 mg PO BEDTIME [facility] Vital Signs - 8 hr 01/31/19 11:15 Temperature 97.5 F Pulse Rate 64 Respiratory 16 Rate Blood Pressure 124/66 (mmHg) O2 Sat by Pulse 97 Oximetry Oxygen Devices in Use Now: None Appearance: NAD, sitting up in bed Ears/Nose/Mouth/Throat: Mucous Membranes Moist Respiratory: Symmetrical Chest Expansion and Respiratory Effort Extremities: - - Bilateral LE lymphedema Skin: - - See skin note below Neurological: Alert and Oriented x 3 Nutrition: Taking PO's Result Diagrams: 02/01/19 05:31 01/31/19 05:25 Additional Lab and Data: Above labs were pulled into the note when the note was edited prior to signing, see labs from day of consult below Laboratory Tests 01/31/19 01/31/19 05:25 05:25 WBC 11.8 H Hgb 10.0 L Hct 30 L Plt Count 250 Sodium 140 Potassium 3.6 Chloride 108 Carbon Dioxide 24 BUN 14 Creatinine 0.97 H Glucose 155 H Microbiology and Other Data: Microbiology 01/25/19 17:46 Aerobic Blood Culture - Final Blood Venous No Growth Day 5 Anaerobic Blood Culture - Final No Growth Day 5 01/25/19 17:46 Aerobic Blood Culture - Final Blood Venous No Growth Day 5 Anaerobic Blood Culture - Final No Growth Day 5 Diagnostic Imagin. Exam Date: 01/25/19 1732 - VL LOWER EXT VEINS LEFT IMPRESSION: The study is POSITIVE for nonocclusive thrombus in visualized portions of the left profunda femoris vein, age-indeterminate but new since prior study dated 03/21/15. 2. Exam Date: 01/25/194 - VL LOWER EXT VEINS RIGHT IMPRESSION: Abnormal study. The mid to distal femoral veins are noncompressible. Flow and augmentation is seen. This may represent a partially occluded vein. Skin Deviation Note - Skin Deviation Findings Anterior left leg - There is a superfical open area and a large bullae. The bullae measures 15.5 cm x 7.5 cm. The small superficial area measures, 1.8 cm x 1.5 cm x 0.1 cm. The wound base is pink granulation tissue. There is currently no drainage from the leg. The surrounding skin with erythema. Left posterior leg - There is a large bullae. The bullae measures 17.5 cm x 7 cm. There is a superficial area near the ankle, this area was not measured. The wound base is pink granulation tissue. There is currently no drainage from the leg. The surrounding skin with erythema. Right anterior lower leg - There are multiple small scabbed areas. The surrounding skin is intact but dry. Assessment/Plan: Ms. Childs is a 68 yo female with PMH significant for DM2, morbid obesity, IBS , HTN, GERD, Mcelroy's esophagus, bilateral LE lymphedema, and venous insufficiency. She presented to the emergency room with complaints of fever, chills, and increased redness and swelling of her right leg. She was admitted to the hospital with bilateral LE cellulitis. 1. Bilateral LE celluitis and lymphedema with bullae to the left LE. Management of cellulitis per ID/primary medicine team. Recommend washing the legs with soap and water. Apply lotion to the intact skin. Do not cover the legs with a dressing. If the bullae open up and there is a significant amount of weeping, recommend applying calcium alginate to the open areas, followed by rolled gauze , change the dressings every other day or as needed for drainage. Recommend referral to lymph edema clinic (she is going to go to [facility]) 2. DM2. No recent HgA1C in the EMR. Recommend maintaining good glycemic control to allow for wound healing. 3. Morbid obesity. BMI ~39. 4. Diet. Consistent Carbohydrate diet. 5. Code Status. Full Code Status. 6. Disposition. Inpatient, disposition per primary medicine team. TIME SPENT: Time for this wound consultation was 40 minutes and 30 minutes was spent with the patient discussing past medical history; assessing, measuring, and photographing the wounds. Wound Problem/Plan Is Patient a Wound Clinic Patient: No Attending: Rama Amor
[2019-01-31] MEDS: VALSARTAN 40 MG PO SCH (20:26)
[2019-02-01 06:24] LABS: ABS Basophils 0.1 10^3/ul (0-0.2); ABS Eosinophils 0.5 10^3/ul (0-0.6); ABS Lymphocytes 2.2 10^3/ul (1.0-4.8); ABS Monocytes 0.8 10^3/ul (0-0.8); ABS Neutrophils 7.2 10^3/ul (1.5-7.7); Eosinophil % 4.3 %; Hematocrit 30 % (35-47); Hemoglobin 10.3 g/dL (12.0-16.0); Lymphocyte % 20.7 %; Mean Corpuscular HGB Conc 34 g/dL (31-36); Mean Corpuscular Hemoglobin 30 pg (27-31); Mean Corpuscular Volume 87 fL (80-97); Mean Platelet Volume 9.7 fL (7.4-10.4); Nucleated Red Blood Cells % 0.1; Platelet Count 263 10^3/uL (150-450); Red Blood Count 3.48 10^6 /uL (3.70-4.87); Red Cell Distribution Width 14 % (10-15); White Blood Count 10.7 10^3/uL (3.5-10.8)
[2019-02-01] MEDS: Clindamycin 600 MG IVPREMIX(* 600 MG/50 ML SDV IV SCH (08:47)
[2019-02-01] MEDS: DEXLANSOPRAZOLE 30 MG PO SCH (08:49)
[2019-02-01] MEDS: Metoprolol Succinate XL TAB* 25 MG PO SCH (08:49)
[2019-02-01] MEDS: SPIRONOLACTONE 25 MG PO SCH (08:50)
[2019-02-01] MEDS: Apixaban* 5 MG TAB PO SCH (08:50)
[2019-02-01] MEDS: Multivitamins/Minerals TAB PO SCH (08:50)
[2019-02-01] MEDS: PTO:Insulin ASPART (NF) 100 UNIT/ML VIAL SUBCUT SCH ×4 (08:51→13:38)
--- NOTE | 2019-02-01 09:37 | PN ---
Progress Note - Progress Note Date of Service: 02/01/19 SOAP: Subjective: CC: cellulitis HPI: 68 year old woman with lymphedema and Left leg cellulitis which is slowly improving. No fever, rash, or diarrhea. Appetite is good. Objective: Vital Signs Temp 36.4 C 02/01/19 03:07 Pulse 66 02/01/19 03:07 Resp 18 02/01/19 03:07 BP 138/52 02/01/19 03:07 Pulse Ox 94 02/01/19 03:07 Intake & Output 01/31/19 02/01/19 02/01/19 18:59 06:59 18:59 Intake Total 770 176 Output Total 0 Balance 770 176 Weight 234 lb 8 oz Intake: IVPB 50 56 ABX - CEFEPIME 50 56 Oral 720 120 Output: Urine 0 Other: Estimated Void Medium # Voids 1 Gen:awake, no distress HEENT:no thrush Heart:RRR no murmur Lungs:CTA BL Abd:+BS NTND soft Skin: left lower leg with mild erythema; collapsed bullae; tender to palpation no fluctuance Laboratory Results - last 24 hr 01/31/19 01/31/19 01/31/19 11:22 16:40 17:44 WBC RBC Hgb Hct MCV MCH MCHC RDW Plt Count MPV Neut % (Auto) Lymph % (Auto) [place] % (Auto) Eos % (Auto) Baso % (Auto) Absolute Neuts (auto) Absolute Lymphs (auto) Absolute Monos (auto) Absolute Eos (auto) Absolute Basos (auto) Absolute Nucleated RBC Nucleated RBC % POC Glucose (mg/dL) 222 H 74 114 H 01/31/19 02/01/19 02/01/19 20:43 05:31 07:16 WBC 10.7 RBC 3.48 L Hgb 10.3 L Hct 30 L MCV 87 MCH 30 MCHC 34 RDW 14 Plt Count 263 MPV 9.7 Neut % (Auto) 67.0 Lymph % (Auto) 20.7 [place] % (Auto) 7.2 Eos % (Auto) 4.3 Baso % (Auto) 0.8 Absolute Neuts (auto) 7.2 Absolute Lymphs (auto) 2.2 Absolute Monos (auto) 0.8 Absolute Eos (auto) 0.5 Absolute Basos (auto) 0.1 Absolute Nucleated RBC 0.0 Nucleated RBC % 0.1 POC Glucose (mg/dL) 229 H 144 H Assessment: 1. Left leg cellulitis, impproving 2. left lower leg thrombosis 3. BL lower extremity lymphedema 4. Insulin dependent diabetes mellitus Plan: 1. will change clindamycin to 300 mg by mouth three times daily for 7 more days , keep legs clean with soap and water, continued leg elevation, fu with me 1-2 weeks. 35 minutes floor time >50% face to face in discussion of monitoring and care of her legs
[2019-02-01] MEDS: Acetaminophen TAB* 325 MG PO PRN ×2 (12:05)
[2019-02-01 12:29] VITALS: BP 136/68
[2019-02-01] MEDS ORDERED: Clindamycin CAP* 150 MG PO ONE (13:00)
--- NOTE | 2019-02-01 13:28 | DS ---
CC: Dr. Lira * DISCHARGE SUMMARY: DATE OF ADMISSION: 01/25/19 DATE OF DISCHARGE: 02/01/19 PRIMARY CARE PROVIDER: Dr. Lira. ATTENDING PHYSICIAN: Dr. Springer * (dictated by Janusz De Jesus NP). PRIMARY DIAGNOSES: 1. Cellulitis. 2. Left leg deep vein thrombosis. 3. Diabetes. 4. Hypertension. 5. Edema. 6. Gastroesophageal reflux disease. 7. Fluid overload. 8. Hypertension. SECONDARY DIAGNOSIS: Spastic colon. CONSULTATIONS WHILE IN THE HOSPITAL: Dr. Mathew Rubin, Infectious Diseases. STUDIES WHILE IN THE HOSPITAL: 1. EKG: Impression: Sinus rhythm. 2. Chest x-ray: Impression: No active cardiopulmonary disease is noted. 3. Venous Doppler study: Impression: Study positive for nonocclusive thrombus in visualized portions of the left profunda femoris vein. 4. Chest/thorax CTA: Impression: Less than optimal opacification of pulmonary artery system. No evidence of clots in the main arteries or segmental pulmonary arteries. The distal segmental pulmonary arteries are not _ opacified. No evidence of right heart strain. 5. Venous Doppler: Impression: Abnormal study. [id number] femoral veins are noncompressible. Flow augmentation is seen. This may represent partially occluded vein. 6. Repeat chest x-ray, 01/27/19: Impression: The constellation of findings is most suggestive of pulmonary vascular congestion and interstitial edema. 7. Repeat chest x-ray, 01/30/19: Impression: No active cardiopulmonary disease. DISCHARGE HOME MEDICATIONS: Continued home medications: 1. Aldactone 25 mg p.o. daily. 2. Toprol 12.5 mg p.o. daily. 3. Dexilant 30 mg p.o. daily. 4. Diovan 40 mg p.o. daily. 5. Torsemide 10 mg p.o. daily. 6. NovoLog sliding scale. 7. Levemir 16 units in the a.m. and 20 units in the p.m. [place] Medication: 1. Clindamycin 300 mg t.i.d. for 7 days. 2. Eliquis 5 mg p.o. b.i.d. Changed home medications: No home medications changed. Discontinued home medications: No home medications discontinued. HISTORY OF PRESENT ILLNESS/HOSPITAL COURSE: Mrs. Childs is a 68-year-old female with a past medical history significant for hypertension, GERD, Mcelroy' s esophagus, edema, diabetes, who presented to the emergency department on 01/25 with complaints of fever and lower extremity redness and swelling. Please see history and physical dictated by Katie Morales NP, for complete summary of the events leading up to the hospitalization, but in short, the patient presented with the above-mentioned complaints and reportedly these have been present for approximately 1 week and progressively getting worse. While in the emergency room, the patient was found to have a white count of 18.2, fever of 102, and a positive lower leg DVT. Given these findings, the patient was admitted to the hospital for further evaluation and treatment. While hospitalized, the patient has been on the telemetry floor. She has been treated with antibiotics for her cellulitis. She was initially started on vanco and cefepime and antibiotics were narrowed to cefepime only. Given the patient's complexity, Dr. Mathew Rubin from Infectious Diseases was consulted and he recommended clindamycin only and, therefore, the patient was transitioned to clindamycin. The redness in the patient's bilateral legs have improved, as evidenced by receding from previously marked border. The patient does appear to have bullae on her left lower extremity, anteriorly and posteriorly. Given these findings, the patient was also evaluated by the wound care provider who recommended soap and water, elevation, leaving legs open to air. As mentioned above in studies, the patient did have an ultrasound of her lower extremity which revealed a left lower leg DVT. The patient was started on Eliquis 10 mg b.i.d. and has completed as 7-day course of 10 mg b.i.d. Therefore, she will be discharged with 5 mg b.i.d. The patient's hospitalization was complicated by the fact that she had an episode of fluid-volume overload secondary to fluid resuscitation. The patient required one dose of Lasix and then resumed her Aldactone and she has improved greatly. As mentioned above, chest x-ray improved, the patient is on room air, the patient has no shortness of breath. The patient is stable for discharge home today. Vital Signs: Temp 97.7, HR 69, RR 20, O2 saturation 98% on room air, BP 151/72. REVIEW OF SYSTEMS: The patient denies fever, chills, pain, chest pain, shortness of breath, nausea, vomiting, diarrhea. A 14-point review of systems was completed and all were negative. PHYSICAL EXAMINATION: General: Mrs. Childs is a 68-year-old female who is sitting in bed. Appears to be in no acute distress. Appears stated age. HEENT : EOMs intact. PERRLA. Oral mucosa is moist without lesion. Posterior oropharynx is clear. Neck: Supple. No lymphadenopathy. Cardiac: S1 and S2 present. No murmurs, rubs or gallops. Regular rate and rhythm. Respiratory: Lungs are clear to auscultation. Good aeration. No wheezes, rhonchi or rubs. Abdomen: Soft and nontender. Bowel sounds normoactive. Extremities: The patient has bilateral lower extremity edema. No clubbing or cyanosis. Pedal pulses are 2+ bilaterally. Musculoskeletal: No pain or deformities. Skin: As mentioned in HPI, the patient does have redness to bilateral lower extremities that has greatly improved and is now only slightly red. It has also receded from the previously marked border. The patient also has bullae noted on her left anterior fay and left posterior calf. These are intact. Neuro: Exam is grossly intact. No focal deficits or weakness. DIAGNOSTIC STUDIES/LABORATORY DATA: WBC 10.7, hemoglobin 10.3, hematocrit 30, platelets 263. Sodium 140, potassium 3.6, chloride 108, carbon dioxide 24, BUN 14, creatinine of 0.97, glucose 155. DISCHARGE PLAN/FOLLOWUP: 1. Cellulitis: As mentioned in the HPI, the patient was evaluated by Wound Care and Dr. Mathew Rubin. Wound Care recommends the patient washing legs with soap and water and applying lotion to intact skin only and do not cover leg with dressing. Dr. Mathew Rubin has recommended the patient be discharged on clindamycin 300 mg t.i.d. for 7 days. The patient is to follow up with Dr. Mathew Rubin and his office will facilitate this. 2. DVT: The patient has a left lower extremity DVT and was loaded with 10 mg of Eliquis b.i.d. for 7 days. The patient will continue Eliquis at 5 mg p.o. b.i.d. Today, I would recommend 3 months' duration, but I will defer the final decision to be made with the patient and her primary care provider. I will send the patient a prescription of Eliquis 5 mg p.o. b.i.d. x1 month and provide her with a refill just in case she cannot get into her primary care provider. 3. Fluid overload: As mentioned above, the patient did have 1 episode of fluid overload that was resolved with 1 dose of Lasix and the continuation of her home diuretics. I have encouraged the patient to monitor weights and continue her home medication. I have encouraged the patient to follow up with her primary care. Given her need for Lasix and her home diuretics, I would recommended a repeat BNP. 4. Diabetes: The patient can resume her home medications and followup with her primary care. 5. Gastroesophageal reflux disease/Mcelroy's esophagus: The patient should continue her home Dexilant. 6. Hypertension: The patient is well controlled and she should continue her home medications of Toprol and valsartan. 7. Edema/lymphedema: As mentioned above, the patient does have edema which is chronic for her. We are recommending followup with [facility] and [facility]. There was also discussion with Dr. Mathew Rubin that he would be referring her to a local lymphedema provider. I will defer this to Dr. Mathew Rubin at his followup with the patient. 8. Spastic colon: The patient should continue her home medication and followup with her primary care as needed. 9. Followup: The patient should follow up with her primary care in 1 to 3 days. The patient should follow up with Dr. Mathew Rubin and his office will facilitate this. 10. Education: The patient and were educated on signs and symptoms of any worsening condition and when to return to the emergency department. Both stated understanding. This is a summarized report of a complex medical history and hospital stay. For further details please see entire medical record. TIME SPENT: Approximately 35 minutes were spent on this discharge, greater than half of that time was spent [id number] with the patient and her , discussing discharge plans and instructions. This plan was discussed with my attending, Dr. Springer, who is in agreement with my plan of care. JANUSZ DE JESUS, APRIL [id number]/[facility] #: [id number] OLIV[place]
== END 2019-02-01 15:36 | disposition home health service (06) | DRG 720 ==
LOC: ED 16:05 → MEDTELE 20:48
PROVIDERS: ADMIT Internal Medicine; ATTEND Internal Medicine
DX: A41.9 Sepsis, unspecified organism (principal); L03.116 Cellulitis of left lower limb; J81.1 Chronic pulmonary edema; I82.412 Acute embolism and thrombosis of left femoral vein; L97.829 Non-pressure chronic ulcer of other part of left lower leg with unspecified severity; L97.819 Non-pressure chronic ulcer of other part of right lower leg with unspecified severity; L03.115 Cellulitis of right lower limb; E11.649 Type 2 diabetes mellitus with hypoglycemia without coma; E87.70 Fluid overload, unspecified; E11.622 Type 2 diabetes mellitus with other skin ulcer; S81.812A Laceration without foreign body, left lower leg, initial encounter; X58.XXXA Exposure to other specified factors, initial encounter; Y92.230 Patient room in hospital as the place of occurrence of the external cause; I10 Essential (primary) hypertension; K21.9 Gastro-esophageal reflux disease without esophagitis; I45.10 Unspecified right bundle-branch block; K22.70 Barrett's esophagus without dysplasia; I89.0 Lymphedema, not elsewhere classified; R10.31 Right lower quadrant pain; E66.9 Obesity, unspecified; K58.9 Irritable bowel syndrome, unspecified; Z79.4 Long term (current) use of insulin; Z79.899 Other long term (current) drug therapy; Z88.6 Allergy status to analgesic agent; Z88.1 Allergy status to other antibiotic agents; Z88.8 Allergy status to other drugs, medicaments and biological substances; Z82.49 Family history of ischemic heart disease and other diseases of the circulatory system; Z80.8 Family history of malignant neoplasm of other organs or systems; Z68.39 Body mass index [BMI] 39.0-39.9, adult
CPT/HCPCS: 36415; 71045; 71275; 80048; 80053; 80202; 81003; 82565; 83605; 83735; 84484; 84520; 85025; 85610; 85730; 87040; 93005; 94640; 99285; A9270-GY; G8978-GP-CH; G8978-GP-CI; G8979-GP-CH; G8979-GP-CI; G8980-GP-CH; G8987-GO-CI; G8988-GO-CI; G8989-GO-CI; J0692; J1940; J2405; J3370; Q9967

== ENCOUNTER 2019-02-02 12:00 | Observation (INO) | payer BC ==
[2019-02-02 14:44] LABS: ABS Basophils 0.1 10^3/ul (0-0.2); ABS Eosinophils 0.2 10^3/ul (0-0.6); ABS Lymphocytes 2.1 10^3/ul (1.0-4.8); ABS Monocytes 0.7 10^3/ul (0-0.8); ABS Neutrophils 7.7 10^3/ul (1.5-7.7); Eosinophil % 2.1 %; Hematocrit 34 % (35-47); Hemoglobin 11.3 g/dL (12.0-16.0); Lymphocyte % 19.7 %; Mean Corpuscular HGB Conc 34 g/dL (31-36); Mean Corpuscular Hemoglobin 29 pg (27-31); Mean Corpuscular Volume 87 fL (80-97); Mean Platelet Volume 8.6 fL (7.4-10.4); Platelet Count 345 10^3/uL (150-450); Red Blood Count 3.84 10^6 /uL (3.70-4.87); Red Cell Distribution Width 14 % (10-15); White Blood Count 10.9 10^3/uL (3.5-10.8)
--- NOTE | 2019-02-02 14:51 | ED ---
Abdominal Pain/Female - HPI Summary HPI Summary: This patient is a 68 year old F presenting to [facility] with a chief complaint of pain in the right side of the abdomen radiating to groin since 01/27/19. Pt was in hospital being treated for cellulitus/DVT, and during treatment she developed this pain but is was deemed trivial. On the night of 01/26/19 her lungs were filled with fluids, and this caused SOB, and coughing. Then the coughing triggered abdominal pain. She reports it is also painful when lifting right leg and edema in abdomen. - History of Current Complaint Chief Complaint: EDAbdPain Stated Complaint: RIGHT HIP AND ABD PIAN PER PT Time Seen by Provider: 02/02/19 14:36 Hx Obtained From: Patient Onset/Duration: Lasting Days Timing: Constant Severity Initially: Moderate Severity Currently: None Pain Intensity: 0 Pain Scale Used: 0-10 Numeric Location: Discrete At: RLQ Radiates: Yes Radiates to: Other - groin Aggravating Factor(s): Movement, Other: - Coughing Associated Signs and Symptoms: Positive: Cough, Other: - pos - SOB Allergies/Adverse Reactions: Allergies Allergy/AdvReac Type Severity Reaction Status Date / Time ibuprofen Allergy Unknown Verified 02/02/19 12:19 Reaction Details metformin Allergy Unknown Verified 02/02/19 12:19 Reaction Details NSAIDS (Non-Steroidal Allergy Unknown Verified 02/02/19 14:38 Anti-Inflamma Reaction Details various narcotics AdvReac Nausea Uncoded 02/02/19 12:19 PMH/Surg Hx/FS Hx/Imm Hx Endocrine/Hematology History: Reports: Hx Diabetes, Hx Thyroid Disease Cardiovascular History: Reports: Hx Angina, Hx Hypercholesterolemia, Hx Hypertension, Hx Peripheral Vascular Disease Denies: Hx Cardiomegaly, Hx Congenital Heart Disease, Hx Congestive Heart Failure, Hx Pacemaker/ICD Respiratory History: Denies: Hx Asthma - A CHILD, Hx Cystic Fibrosis, Hx Pleural Effusion, Hx Pneumonia, Hx Pulmonary Embolism GI History: Reports: Hx Diverticulosis, Hx Gastroesophageal Reflux Disease, Hx Hiatal Hernia, Hx Irritable Bowel, Other GI Disorders - DIFFICULTY SWALLOWING, DIARRHEA/CONSTIPATION History: Reports: Other Problems/Disorders - INCONTINENCE Denies: Hx Dialysis, Hx Renal Disease Musculoskeletal History: Reports: Hx Arthritis, Hx Back Problems, Hx Orthopedic Injury, Other Musculoskeletal History - WEAKNESS/TREMORS Sensory History: Reports: Hx Cataracts, Hx Contacts or Glasses Denies: Hx Eye Injury, Hx Eye Prosthesis, Hx Legally Blind, Hx Macular Degeneration, Hx Vision Problem, Hx Hearing Aid, Hx Hearing Problem, Other Sensory Impairments Opthamlomology History: Reports: Hx Cataracts, Hx Contacts or Glasses Denies: Hx Eye Injury, Hx Eye Prosthesis, Hx Legally Blind, Hx Macular Degeneration, Hx Vision Problem, Other Sensory Impairments Neurological History: Reports: Hx Headaches, Other Neuro Impairments/Disorders - POST CONCUSSION SYNDROME, DIZZINESS Psychiatric History: Denies: Hx Depression, Hx Panic Disorder, Hx Suicide Attempt, Hx of Violent Episodes Against Others - Surgical History Surgery Procedure, Year, and Place: HYSTERECTOMY; ENDOMETRIOSIS SURGERY; RT AND LT BREAST BIOPSY; BREAST REDUCTION;. MAY 2017 LUMBAR FUSION AND CYST REMOVAL;. back surgery 2018 Infectious Disease History: No Infectious Disease History: Denies: Hx Clostridium Difficile, Hx Hepatitis, Hx of Known/Suspected MRSA, Hx Shingles, Hx Tuberculosis, Hx Known/Suspected VRE, Hx Known/Suspected VRSA, History Other Infectious Disease, Traveled Outside the [place] in Last 30 Days - Family History Known Family History: Positive: Diabetes, Other - prostate and skin cancer, Non- Contributory - Social History Occupation: Retired Lives: With Family Alcohol Use: Rare Alcohol Amount: wine Hx Substance Use: No Substance Use Type: Reports: None Hx Tobacco Use: No Smoking Status (MU): Never Smoked Tobacco Have You Smoked in the Last Year: No Review of Systems Positive: Shortness Of Breath, Cough Positive: Abdominal Pain All Other Systems Reviewed And Are Negative: Yes Physical Exam - Summary Physical Exam Summary: VITAL SIGNS: Reviewed. GENERAL: Patient is a well-developed and nourished female who is lying comfortable in the stretcher. Patient is not in any acute respiratory distress. HEAD AND FACE: Normocephalic and atraumatic. EYES: PERRLA, EOMI x 2, No injected conjunctiva. EARS: Hearing grossly intact. Ear canals and tympanic membranes are WNL. MOUTH: Oropharynx within normal limits. NECK: Supple, trachea is midline, no adenopathy, no JVD. CHEST: Symmetric, no tenderness at palpation. LUNGS: Clear to auscultation bilaterally. No wheezing or crackles. CVS: RRR, S1 and S2 present, no murmurs or gallops appreciated. ABDOMEN: Soft, RLQ tenderness. No signs of distention. Positive bowel sounds. No rebound, no guarding, and no masses palpated. No abdominal bruit or pulsations. EXTREMITIES: FROM in all major joints, no edema, no cyanosis or clubbing. NEURO: Alert and oriented x 3. No acute neurological deficits. Speech is normal. SKIN: Dry and warm. Triage Information Reviewed: Yes Vital Signs On Initial Exam: Initial Vitals Temp Pulse Resp BP Pulse Ox 99.8 F 76 20 191/88 97 02/02/19 12:11 02/02/19 12:11 02/02/19 12:11 02/02/19 12:11 02/02/19 12:11 Vital Signs Reviewed: Yes Diagnostics - Vital Signs Vital Signs Temp Pulse Resp BP Pulse Ox 02/02/19 14:11 100.4 F 76 18 172/68 100 02/02/19 12:11 99.8 F 76 20 191/88 97 - Laboratory Lab Results: Lab Results 02/02/19 Range/Units 14:20 WBC 10.9 H (3.5-10.8) 10^3/uL RBC 3.84 (3.70-4.87) 10^6 /uL Hgb 11.3 L (12.0-16.0) g/dL Hct 34 L (35-47) % MCV 87 (80-97) fL MCH 29 (27-31) pg MCHC 34 (31-36) g/dL RDW 14 (10-15) % Plt Count 345 (150-450) 10^3/uL MPV 8.6 (7.4-10.4) fL Neut % (Auto) 70.7 % Lymph % (Auto) 19.7 % [place] % (Auto) 6.7 % Eos % (Auto) 2.1 % Baso % (Auto) 0.8 % Absolute Neuts (auto) 7.7 (1.5-7.7) 10^3/ul Absolute Lymphs (auto) 2.1 (1.0-4.8) 10^3/ul Absolute Monos (auto) 0.7 (0-0.8) 10^3/ul Absolute Eos (auto) 0.2 (0-0.6) 10^3/ul Absolute Basos (auto) 0.1 (0-0.2) 10^3/ul Absolute Nucleated RBC 0.0 10^3/ul Nucleated RBC % 0.0 Result Diagrams: 02/02/19 14:20 02/02/19 14:20 Lab Statement: Any lab studies that have been ordered have been reviewed, and results considered in the medical decision making process. Abdominal Pain Fem Course/Dx - Course Course Of Treatment: This patient is a 68 year old F presenting to [facility] with a chief complaint of pain in the right side of the abdomen radiating to groin since 01/27/19. Pt was in hospital being treated for cellulitis/DVT, and during treatment she developed this pain but is was deemed trivial. On the night of 01/26 her lungs were filled with fluids, and this caused SOB, and coughing. Then the coughing triggered abdominal pain. She reports it is also painful when lifting right leg and edema in abdomen. Blood test results without any significant abnormality except for WBCs of 10.9, hemoglobin 11.3, hematocrit 34 , creatinine 0.99, glucose of 104, AST 51, AST is 81, CRP is 35.5. Lipase is less than 10. Because of the right lower quadrant tenderness I decided to do a an abdominal pelvic CT. The CT is still pending.. The patient will be signed out to Dr. Love at shift change. Patient continues to be hemodynamically stable. The patient did not require any pain medications. - Diagnoses Provider Diagnoses: Cellulitis, Abdominal wall hematoma Discharge - Sign-Out/Discharge Documenting (check all that apply): Sign-Out Patient Signing out patient TO: Jason Love - Pt is a sign out pending Abd CT at 1910 on 02/02/19 - Discharge Plan Condition: Stable Disposition: ADMITTED TO [facility] - Billing Disposition and Condition Condition: STABLE Disposition: Admitted to [facility] - Attestation Statements Document Initiated by Scribe: Yes Documenting Scribe: Shannon Mcdonnell Provider For Whom Scribe is Documenting (Include Credential): Dr. Rene Collins MD Scribe Attestation: Shannon Sanon scribed for Dr. Rene Collins MD on 02/03/19 at 0728. Scribe Documentation Reviewed: Yes Provider Attestation: The documentation as recorded by the Shannon ortiz accurately reflects the service I personally performed and the decisions made by , Dr. Rene Collins MD Status of Scribe Document: Viewed
[2019-02-02 14:57] LABS: ALT 81 U/L (7-52); AST 51 U/L (13-39); Albumin 3.6 g/dL (3.2-5.2); Albumin/Globulin Ratio 1.1 (1-3); Alkaline Phosphatase 67 U/L (34-104); Anion Gap 8 mmol/L (2-11); BUN/Creatinine Ratio 12.1 (8-20); Blood Urea Nitrogen 12 mg/dL (6-24); C Reactive Protein 35.51 mg/L (<8.01); CO2 Carbon Dioxide 28 mmol/L (22-32); Calcium 9.2 mg/dL (8.6-10.3); Chloride 105 mmol/L (101-111); EGFR African American 67.5 (>60); EGFR Non-African American 55.8 (>60); Globulin 3.2 g/dL (2-4); Glucose 104 mg/dL (70-100); Potassium 3.8 mmol/L (3.5-5.0); Sodium 141 mmol/L (135-145); Total Protein 6.8 g/dL (6.4-8.9)
[2019-02-02] MEDS ORDERED: Iodixanol* (CONTRAST) 320 MG/ML 100 ML SDV IV ONE (15:18)
--- NOTE | 2019-02-02 19:21 | ED ---
Progress - Progress Note Progress Note: Pt is a 68 y/o F signed out from Dr. Collins pending CT a/p results. The pt was recently admitted and d/kirt with LE cellulitis and DVT. She was placed on Clindamycin 300mg TID. She reports abd pain in the R flank that radiates down to the umbilicus. Dr. Collins ordered a CT a/p to evaluate what the pain might be from, and we are since waiting for results. It could be failed outpatient tx of the cellulitis. - Results/Orders Results/Orders: CT a/p shows: 1. Small inferior right rectus abdominis intramuscular hematoma. A neoplasm is considered much less likely. 2. Bosniak type I renal cyst. No followup indicated. 3. Right greater than left pleural effusions and associated lower lobe volume loss. 4. Small hiatal hernia. ED physician has reviewed this report. Re-Evaluation - Re-Evaluation 2044 Re-Evaluation Time: 20:45 Change: Unchanged Comment: 2044 I spoke with the patient about her current condition. She states the abd pain starts in her R flank, but is worst in her umbilicus and groin. The pain started in the last couple of days during her recent hospital visit, which flared up a couple of hours after she returned home. She reports being restless and weak, but also states that the cellulitis in her legs has worsened. She says Dr. Rubin took her from 2 IV drugs to just simply IV Clindamycin, then to PO Clindamycin just prior to d/c. Course/Dx - Course Course Of Treatment: Pt is a 68 y/o F signed out from Dr. Collins pending CT a/p results. The pt was recently admitted and d/kirt with LE cellulitis and DVT. She was placed on Clindamycin 300mg TID. She has R flank pain that radiates down to the umbilicus. Dr. Collins ordered a CT a/p to evaluate what the pain might be from, and we are since waiting for results. It could be failed outpatient tx of her LE. CT a/p shows: 1. Small inferior right rectus abdominis intramuscular hematoma. A neoplasm is considered much less likely. 2. Bosniak type I renal cyst. No followup indicated. 3. Right greater than left pleural effusions and associated lower lobe volume loss. 4. Small hiatal hernia. 2044 I spoke with the patient about her current condition. She states the abd pain starts in her R flank, but is worst in her umbilicus and groin. The pain started in the last couple of days during her recent hospital visit, which flared up a couple of hours after she returned home. She reports being restless and weak, but also states that the cellulitis in her legs has worsened. She says Dr. Rubin took her from 2 IV drugs to just simply IV Clindamycin, then to PO Clindamycin just prior to d/c. I'd like to speak to the hospitalist to discuss admission d/t worsening cellulitis and her R sided flank pain. I spoke with Dr. Alicea at 21:24 about the pt's present condition. He will be accepting her to [facility] with dx including cellulitis, and abd wall hematoma. - Diagnoses Provider Diagnoses: Cellulitis, Abdominal wall hematoma - Provider Notifications Discussed Care Of Patient With: Andrzej Alicea Time Discussed With Above Provider: 21:24 Instructed by Provider To: Admit As Inpatient Discharge - Sign-Out/Discharge Documenting (check all that apply): Patient Departure, Receiving Sign-Out Receiving patient FROM: Rene Collins - Discharge Plan Condition: Stable Disposition: ADMITTED TO [facility] - Billing Disposition and Condition Condition: STABLE Disposition: Admitted to [facility] - Attestation Statements Document Initiated by Rex: Yes Documenting Scribe: Emily Johnson Provider For Whom Rex is Documenting (Include Credential): Jason Love MD. Scribe Attestation: I, Emily Johnson, marileeed for Jason Love MD. on 02/03/19 at 0619. Scribe Documentation Reviewed: Yes Provider Attestation: The documentation as recorded by the Emily ortiz accurately reflects the service I personally performed and the decisions made by me, Jason Love MD. Status of Scribe Document: Viewed Consult Consult: 2123 - Dr. Alicea accepts the pt to [facility].
[2019-02-02] MEDS ORDERED: Vancomycin(*) 1,000 MG in NS 0.9% 250 ML* 250 ML IVPB ONE (21:14)
[2019-02-02] MEDS ORDERED: Cefepime(*) 1 GM in NS 0.9% 50 ML* 50 ML IVPB ONE (21:15)
[2019-02-02] MEDS ORDERED: NS 0.9% 50 ML* 50 ML ONE (21:29)
[2019-02-02] MEDS ORDERED: Cefepime 1 GM in Dextrose(*) 1 GM/50 ML BAG IV ONE (21:35)
[2019-02-02] MEDS ORDERED: Vancomycin per Pharmacy* NOTE FOLLOW UP SCH (23:00)
[2019-02-03] MEDS ORDERED: Vancomycin(*) 1,000 MG in NS 0.9% 250 ML* 250 ML IVPB ONE (00:30)
[2019-02-03] MEDS ORDERED: Apixaban* 5 MG TAB PO ONE (02:00)
--- NOTE | 2019-02-03 04:05 | HP ---
CC: Dr. Lira * HISTORY AND PHYSICAL: DATE OF ADMISSION: 02/02/19 PROVIDER: Katie Morales NP PRIMARY CARE PROVIDER: Dr. Lira. ATTENDING PHYSICIAN WHILE IN THE HOSPITAL: Dr. Andrzej Alicea * (dictated by Katie Morales NP). CHIEF COMPLAINT: 1. Abdominal pain. 2. Cellulitis. HISTORY OF PRESENT ILLNESS: Ms. Childs is a 68-year-old female with past medical history significant for hypertension, GERD, Mcelroy's esophagus, edema, diabetes, and recent admission from 01/25/19 to 02/01/19 for cellulitis and left leg DVT and sepsis, who presented to the emergency room with complaints of abdominal pain. During that hospitalization, the patient was placed on cefepime and vancomycin with improvement of her leg cellulitis. She was seen and consulted by Infectious Disease. Infectious Disease had recommended at discharge, clindamycin 300 mg 3 times a day for 7 more days. Keep leg clean and dry and wash with soap and water. Keep leg elevated. The patient reports that she returned home approximately 5 p.m. yesterday evening. She reports that she was feeling well and was doing fine. She reports that she took a shower and was getting up into her bed when she developed severe lower abdominal pain. She was able to lay down but continued to have abdominal pain overnight. When she woke this morning, she still continued to have the abdominal pain, so she presented to the emergency room for further evaluation. The patient reports that during that time her leg was improving and the redness was also improving and was not having any pain in that leg. While in the emergency room, the patient reports that she developed increasing pain and redness in the left lower leg and continued to have abdominal pain. She had a CT of the abdomen and pelvis that showed a small hematoma. When questioned about her abdominal pain, the patient reports that she has had the abdominal pain since last and it was just mild pain in the right lower abdomen that got acutely worse last evening. Due to her abdominal pain and worsening cellulitis, we were asked to see and evaluate her for admission. PAST MEDICAL HISTORY: Significant for spastic colon, hypertension, GERD, Mcelroy's esophagus, edema, type 2 diabetes, cellulitis with recent admission to 02/01/19, DVT found on 01/25/19. PAST SURGICAL HISTORY: 1. Hysterectomy. 2. Breast reduction. 3. Spinal fusion. MEDICATIONS: Home medications include: 1. Aldactone 25 mg p.o. daily. 2. Toprol 12.5 mg p.o. daily. 3. Dexilant 30 mg p.o. daily. 4. Diovan 40 mg p.o. daily. 5. NovoLog sliding scale. 6. Levemir 16 units in the a.m. and 20 units in the p.m. 7. Eliquis 5 mg b.i.d. 8. Clindamycin 300 mg t.i.d. ALLERGIES: IBUPROFEN, METFORMIN, and various ANTIBIOTICS, NSAIDS. FAMILY HISTORY: Father with a quadruple bypass at the age of 85. No reported history of diabetes. Mother with basal cell carcinoma of the skin. Brother with fibrosarcoma. SOCIAL HISTORY: The patient denies any tobacco, alcohol, or illicit drug use. She is . She lives with her . She usually walks with a cane or walker for ambulation at home. Surrogate decision maker in the event she is unable to make her own decisions is her . She is a full code. REVIEW OF SYSTEMS: The patient denies any fever or chills. Denies chest pain or edema. No cough, hemoptysis or shortness of breath. She denies any nausea or vomiting or diarrhea. She does report right lower quadrant abdominal pain. Denies any hematuria, dysuria, focal weakness or sensory loss. Denies any visual complaints, dysphagia, arthralgias, myalgias. She does complain of rash to the right lower leg with increasing redness and increasing pain. Denies any psychosis or anxiety. PHYSICAL EXAMINATION GENERAL: At this time, Ms. Childs is resting comfortably on the stretcher in the emergency room. She is in no acute distress. VITAL SIGNS: Temperature was 100.4, heart rate 74, respirations 18, O2 saturation 96%, blood pressure 173/80. HEENT: Head is atraumatic, normocephalic. Eyes: EOMs are intact. Sclerae anicteric and not pale. Oral mucosa appeared to be moist. NECK: Supple. LUNGS: Clear to auscultation bilaterally. No wheezes, rales, or rhonchi. CARDIAC: S1, S2. Regular rate and rhythm. No murmurs, rubs, or gallops. ABDOMEN: Obese, soft. She does have some tenderness noted to right lower quadrant. There is a small ecchymotic area noted to the skin. EXTREMITIES: She is able to move all 4 extremities. Pedal pulses are +2 bilaterally. She does have erythema and swelling noted to the left lower leg with fluid filled blister noted to the fay. Right lower leg with healing scabbed areas. NEUROLOGIC: She is awake, alert, oriented x3. Speech is clear. Thought process is intact. There are no gross focal deficits. DIAGNOSTIC STUDIES/LAB DATA: WBCs are 10.9, RBCs 3.84, hemoglobin 11.3, hematocrit 34, platelet count 345. Sodium 141, potassium 3.8, chloride 105, carbon dioxide 20, anion gap was 8, BUN 12, creatinine 0.99, glucose 104. Lactic acid 0.9 and 1.1. Calcium 9.2. ASTs were 51, ALTs were 81. C-reactive protein 35.51. Alkaline phosphatase 67. Lipase was less than 10. The patient had a CT of the abdomen and pelvis, radiologist impression: Small inferior right rectus abdominis intramuscular hematoma. A neoplasm is considered but less likely. Bosniak type 1 renal cyst, no followup indicated. Right greater than left pleural effusions with associated low volume loss, small hiatal hernia. ASSESSMENT AND PLAN: Ms. Childs is a 68-year-old female with past medical history significant for hypertension, gastroesophageal reflux disease, Mcelroy' s esophagus, lower extremity edema, type 2 diabetes, recent diagnosis of deep venous thrombosis and cellulitis, who presented to the emergency room with complaints of abdominal pain and increasing redness to the left lower leg. She will be admitted inpatient for: 1. Cellulitis. The patient was recently discharged yesterday on clindamycin 300 mg p.o. t.i.d. The patient did have a low-grade fever in the emergency room this evening, during her prior stay had no fevers. She did have a T-max of 100.4. Given this, I will stop her clindamycin and place her back on cefepime and vanco. I would recommend consultation to Infectious Disease. The patient does report increased pain, swelling, and redness to the left lower leg. She does report that her pain and swelling had subsided during her last admission. 2. Recent left leg DVT. The patient does have a DVT in the left leg. She was started on Eliquis on 01/25/19. She should continue her Eliquis at this time at 5 mg p.o. b.i.d. as the patient does report she has had abdominal pain since last and had a CT of the abdomen that showed a small hematoma in the rectus muscle. 3. Type [address] the patient on fingersticks a.c. and h.s. She would like to continue on her home insulin of Levemir and NovoLog. I will order her NovoLog at 8 units with meals. We are going to hold on her Levemir at this time as the patient's blood sugar is 104. 4. Hypertension. She will continue on her metoprolol as previously prescribed. 5. Edema. The patient does have chronic lower extremity edema. Given the patient's continued cellulitis and infection, I am going to hold her torsemide and Aldactone at this time. 6. Acid reflux. The patient should continue on Dexilant as previously prescribed. 7. FEN. She can have a consistent carb diet. 8. Code status. She is a full code. 9. DVT prophylaxis. She will continue on Eliquis. Mechanical DVT prophylaxis at this time is contraindicated as the patient does have a DVT in her left lower leg. TIME SPENT: Time spent on this admission was approximately 60 minutes, greater than half that time was spent at the bedside reviewing events leading thus far to her hospitalization, performing physical exam, and reviewing my plan of care. I have discussed this with my attending, Dr. Andrzej Alicea, he is in agreement with my plan. KATIE MORALES, APRIL [id number]/[facility] #: [id number] OLIVA
[2019-02-03] MEDS ORDERED: Insulin LISPRO* 1 UNITS UNIT SUBCUT SCH (07:30)
[2019-02-03 08:37] LABS: ABS Basophils 0.1 10^3/ul (0-0.2); ABS Eosinophils 0.2 10^3/ul (0-0.6); ABS Lymphocytes 1.8 10^3/ul (1.0-4.8); ABS Monocytes 0.7 10^3/ul (0-0.8); ABS Neutrophils 7.3 10^3/ul (1.5-7.7); Eosinophil % 2.4 %; Hematocrit 32 % (35-47); Lymphocyte % 17.8 %; Mean Corpuscular HGB Conc 35 g/dL (31-36); Mean Corpuscular Hemoglobin 30 pg (27-31); Mean Corpuscular Volume 87 fL (80-97); Mean Platelet Volume 8.5 fL (7.4-10.4); Nucleated Red Blood Cells % 0.1; Platelet Count 358 10^3/uL (150-450); Red Blood Count 3.67 10^6 /uL (3.70-4.87); Red Cell Distribution Width 14 % (10-15); White Blood Count 10.2 10^3/uL (3.5-10.8)
[2019-02-03 08:57] LABS: BUN/Creatinine Ratio 11.6 (8-20); EGFR African American 70.8 (>60); EGFR Non-African American 58.5 (>60); Potassium 3.8 mmol/L (3.5-5.0)
[2019-02-03] MEDS ORDERED: Cefepime 1 GM in Dextrose(*) 1 GM/50 ML BAG IV SCH (09:00)
[2019-02-03] MEDS ORDERED: Metoprolol Succinate XL TAB* 25 MG PO SCH (09:00)
[2019-02-03] MEDS: DEXLANSOPRAZOLE 30 MG PO SCH (09:24)
[2019-02-03] MEDS ORDERED: INSULIN ASPART 1 UNIT SUBCUT SCH (10:00)
[2019-02-03] MEDS: Multivitamins/Minerals TAB PO SCH (10:37)
[2019-02-03] MEDS: METOPROLOL SUCCINATE 25 MG PO SCH (10:39)
[2019-02-03] MEDS: APIXABAN 5 MG PO SCH ×2 (10:39→21:49)
[2019-02-03] MEDS: SPIRONOLACTONE 25 MG PO SCH (11:53)
[2019-02-03] MEDS ORDERED: Vancomycin(*) 1,000 MG in NS 0.9% 250 ML* 250 ML IVPB SCH (12:00)
[2019-02-03] MEDS: Insulin ASPART (NF) 1 UNIT SUBCUT SCH ×2 (12:29→17:31)
[2019-02-03] MEDS: Acetaminophen TAB* 325 MG PO PRN ×2 (14:07→22:00)
--- NOTE | 2019-02-03 15:05 | CONS ---
CONSULTATION REPORT: DATE OF CONSULT: 02/03/19 REQUESTING PHYSICIAN: Dr. Maldonado. CONSULTING SERVICE: Infectious disease. REASON FOR CONSULT: Left leg cellulitis. IMPRESSION: 1. Left lower extremity cellulitis, likely group A strep. She had been on a few days of IV antibiotics and transitioned to oral clindamycin, was home for a little while, but came back because of right lower quadrant pain and was found to have a rectus sheath hematoma. She was switched back to IV antibiotics because in the ER she was felt to have worsening erythema. She and I had discussed before that I expected the erythema and edema to worsen when she is home and up on her feet more, which she had been. Her leg looks to be continuing to improve currently and I do not think there is an issue with the clindamycin therapy. 2. Obesity. 3. Diabetes. RECOMMENDATIONS: We will continue clindamycin 300 mg by mouth 3 times a day. Focus on keeping her leg elevated. Okay for her to be up and around when she is not keeping the legs elevated. HISTORY OF PRESENT ILLNESS: This is a 68-year-old woman who had been in the hospital with left leg cellulitis, had been showing significant improvement, was discharged on clindamycin. She came back to the hospital couple of hours after leaving because of right lower quadrant pain. A CT scan done in the ER showed a rectus hematoma. She had been up and around a bit for couple hours at home and then was sitting up in the ER for few hours and in the ER, they felt her leg was more red. She was switched to IV antibiotics and restarted on bedrest. She had a temp of 38 degrees yesterday in the ER. PAST MEDICAL HISTORY: 1. Irritable bowel syndrome. 2. Hypertension. 3. Gastroesophageal reflux disease. 4. Mcelroy esophagus. 5. Lymphedema. 6. Type 2 diabetes. 7. Left lower extremity thrombosis. ALLERGIES: 1. IBUPROFEN. 2. METFORMIN. 3. NONSTEROIDALS. 4. NARCOTICS. MEDICATIONS: 1. Tylenol. 2. Eliquis. 3. Cefepime 1 g every 12 hours. 4. Dexlansoprazole. 5. Metoprolol. 6. Multivitamin. 7. Spironolactone. 8. Vancomycin 1 g every 12 hours. SOCIAL HISTORY: She lives in [place] with her . She is a nonsmoker. FAMILY HISTORY: No recurrent infections. REVIEW OF SYSTEMS: All negative, except as noted above to a 12-point review. PHYSICAL EXAM: Vital Signs: Temperature 36.4, heart rate 78, respiratory rate 16, blood pressure 154/73, oxygen saturation 96% on room air. In general, she is awake, not in distress. Neurologic: She is oriented x3, follows all commands. HEENT: There is no conjunctival hemorrhage. Oropharynx without lesions. Neck is supple without mass. Heart is regular rate and rhythm without murmurs, rubs, or gallops. Lungs are clear to auscultation bilaterally. Abdomen: Soft, nontender, nondistended. There are bowel sounds present. Skin: There is no rash or splinter hemorrhage. Musculoskeletal: There is bilateral lower extremity nonpitting edema and on the left lower extremity, there is barely visible erythema around some evolving eschar on the anterior and posterior lower leg with some serous drainage from resulting bullae. There is no tenderness to palpation in the lower leg. LABORATORY DATA: White blood cell count 10, hemoglobin 11, platelets 358. Creatinine 0.9. CRP was 35 yesterday. ALT was 81. Please see impression and recommendations outlined above, which I have discussed with Dr. Maldonado. Thanks for asking me to see Karla Naz in consultation. [id number]/[facility] #: [id number] OLIVA
[2019-02-03] MEDS: Clindamycin CAP* 150 MG PO SCH ×2 (16:03→21:48)
--- NOTE | 2019-02-03 17:10 | PN ---
Subjective Interval History: RLQ pain worse with certain movements (like abdominal crunch) but overall much improved. took brief walk BOWMAN 03/04. has lasted 7 days. not worse of her life. Took some tylenol Objective Active Medications: Acetaminophen (Tylenol Tab*) 650 mg PO Q4H PRN PRN Reason: FEVER/PAIN Last Admin: 02/03/19 14:07 Dose: 650 mg Apixaban (Eliquis*) 5 mg PO BID [facility] Last Admin: 02/03/19 10:39 Dose: 5 mg Clindamycin HCl (Cleocin Cap*) 300 mg PO TID [facility] Last Admin: 02/03/19 16:03 Dose: 300 mg Insulin Aspart (Novolog (Nf)) 0 units SUBCUT AC [facility] Last Admin: 02/03/19 12:29 Dose: 8 units Metoprolol Succinate (Toprol Xl Tab*) 25 mg PO DAILY [facility] Last Admin: 02/03/19 10:39 Dose: 25 mg Multivitamins/Minerals (Theragran/Minerals Tab*) 1 tab PO DAILY [facility] Last Admin: 02/03/19 10:37 Dose: Not Given Pto: ( Dexlansoprazole [ Dexilant] 30 Mg) 30 mg PO DAILY [facility] Last Admin: 02/03/19 09:24 Dose: 30 mg Spironolactone (Aldactone Tab*) 25 mg PO DAILY [facility] Last Admin: 02/03/19 11:53 Dose: 25 mg Valsartan (Diovan Tab*) 40 mg PO BEDTIME [facility] Vital Signs - 8 hr 02/03/19 02/03/19 11:50 15:43 Temperature 96.8 F 98 F Pulse Rate 72 70 Respiratory 16 16 Rate Blood Pressure 159/55 142/54 (mmHg) O2 Sat by Pulse 98 96 Oximetry Oxygen Devices in Use Now: None Appearance: NAD Eyes: No Scleral Icterus Ears/Nose/Mouth/Throat: NL Teeth, Lips, Gums Neck: NL Appearance and Movements; NL JVP Respiratory: Symmetrical Chest Expansion and Respiratory Effort, Clear to Auscultation Abdominal: NL Sounds; No Tenderness; No Distention, No Hepatosplenomegaly Extremities: No Edema Skin: - - erythema, bullae most prominent on left anterior and posterior calf ( later with some sloughing). right leg scant. Neurological: Alert and Oriented x 3 Nutrition: Taking PO's Result Diagrams: 02/03/19 08:14 07/12/19 08:14 Additional Lab and Data: Laboratory Results - last 24 hr 02/02/19 02/03/19 02/03/19 17:55 08:14 08:14 WBC 10.2 RBC 3.67 L Hgb 11.0 L Hct 32 L MCV 87 MCH 30 MCHC 35 RDW 14 Plt Count 358 MPV 8.5 Neut % (Auto) 72.1 Lymph % (Auto) 17.8 [place] % (Auto) 7.0 Eos % (Auto) 2.4 Baso % (Auto) 0.7 Absolute Neuts (auto) 7.3 Absolute Lymphs (auto) 1.8 Absolute Monos (auto) 0.7 Absolute Eos (auto) 0.2 Absolute Basos (auto) 0.1 Absolute Nucleated RBC 0.0 Nucleated RBC % 0.1 Sodium 139 Potassium 3.8 Chloride 106 Carbon Dioxide 25 Anion Gap 8 BUN 11 Creatinine 0.95 Est GFR ( Amer) 70.8 Est GFR (Non-Af Amer) 58.5 BUN/Creatinine Ratio 11.6 Glucose 150 H POC Glucose (mg/dL) Lactic Acid 1.1 Calcium 9.0 02/03/19 02/03/19 02/03/19 08:35 11:58 16:42 WBC RBC Hgb Hct MCV MCH MCHC RDW Plt Count MPV Neut % (Auto) Lymph % (Auto) [place] % (Auto) Eos % (Auto) Baso % (Auto) Absolute Neuts (auto) Absolute Lymphs (auto) Absolute Monos (auto) Absolute Eos (auto) Absolute Basos (auto) Absolute Nucleated RBC Nucleated RBC % Sodium Potassium Chloride Carbon Dioxide Anion Gap BUN Creatinine Est GFR ( Amer) Est GFR (Non-Af Amer) BUN/Creatinine Ratio Glucose POC Glucose (mg/dL) 154 H 150 H 173 H Lactic Acid Calcium Microbiology and Other Data: Microbiology 02/02/19 14:20 Blood Venous Blood Culture - Preliminary No Growth Day 1 Assess/Plan/Problems-Billing Assessment: 68 yo female PMH IDDM, HTN, GERD, Mcelroy's Esophagus with recent nonoclusive left DVT (on eliquis) and left >right lower extremity cellulitis suspected 2/2 strep returns less than 24 hours after d/c with RLQ pain and continued bullae. right rectus sheath hematoma. ID on board, recommend return to po clinda 300mg TID. - Patient Problems (1) Cellulitis Current Visit: No Status: Acute Code(s): L03.90 - CELLULITIS, UNSPECIFIED SNOMED Code(s): 229685985 Comment: - there was some concern that the rash was worse on the po meds but this can also be the natural history of a strep cellulitis. Patient tells me that Dr. Rubin would check again tomorrow to see if needs the IV anitibiotics again. - appreciate ID. Abx to be changed back again to po Clindamycin 300mg TID - Blood cultures, NGTD - suspected from strep (2) DVT prophylaxis Current Visit: No Status: Acute Code(s): Z29.9 - ENCOUNTER FOR PROPHYLACTIC MEASURES, UNSPECIFIED SNOMED Code(s): 341684977 Comment: - Continue eliquis as per above. (3) Deep vein thrombosis (DVT) of left lower extremity Current Visit: No Status: Acute Code(s): I82.402 - ACUTE EMBOLISM AND THOMBOS UNSP DEEP VEINS OF L LOW EXTREM SNOMED Code(s): 408989365 Comment: - LLE superficial femoral vein - eliquis 5 mg BID (4) Diabetes Current Visit: No Status: Acute Code(s): E11.9 - TYPE 2 DIABETES MELLITUS WITHOUT COMPLICATIONS SNOMED Code(s): 10654346 Comment: 150-170s - home sliding scale of lispro 8+ SSI - restart levimir tonight at 15U BID (from 20U BID) - POC [facility] hs (5) Full code status Current Visit: No Status: Acute Code(s): Z78.9 - OTHER SPECIFIED HEALTH STATUS SNOMED Code(s): 194794690 Comment: (6) Hypertension Current Visit: No Status: Acute Code(s): I10 - ESSENTIAL (PRIMARY) HYPERTENSION SNOMED Code(s): 87936489 Comment: - BP well controlled 140-150s, 170 last night - Continue toprol 25mg daily home dose and valsartan 40mg, restart aldactone 25mg Status and Disposition: medicine observation status.
[2019-02-03] MEDS ORDERED: VALSARTAN 40 MG PO SCH (21:00)
[2019-02-03] MEDS: INSULIN DETEMIR 100 UNIT/ML SUBCUT SCH (21:54)
[2019-02-03] MEDS ORDERED: diPHENhydraMINE PO* 25 MG PO PRN (23:56)
[2019-02-04] MEDS: INSULIN DETEMIR 100 UNIT/ML SUBCUT SCH (08:42)
[2019-02-04] MEDS: Insulin ASPART (NF) 1 UNIT SUBCUT SCH ×3 (08:44→19:07)
[2019-02-04] MEDS: METOPROLOL SUCCINATE 25 MG PO SCH (08:46)
[2019-02-04] MEDS: Clindamycin CAP* 150 MG PO SCH ×2 (08:46→13:33)
[2019-02-04] MEDS: APIXABAN 5 MG PO SCH (08:47)
[2019-02-04] MEDS: DEXLANSOPRAZOLE 30 MG PO SCH (08:47)
[2019-02-04] MEDS: SPIRONOLACTONE 25 MG PO SCH (08:48)
[2019-02-04] MEDS: Multivitamins/Minerals TAB PO SCH (08:50)
[2019-02-04] MEDS ORDERED: Vancomycin Trough Check NOTE FOLLOW UP ONE (12:00)
[2019-02-04] MEDS: Acetaminophen TAB* 325 MG PO PRN (13:45)
[2019-02-04 19:08] VITALS: BP 141/60
--- NOTE | 2019-02-06 01:47 | DS ---
DISCHARGE SUMMARY: DATE OF ADMISSION: 02/02/19 DATE OF DISCHARGE: 02/04/19 ADMITTING PROVIDER: Katie Morales NP PRIMARY CARE PHYSICIAN: Dr. Lira. CONSULTING INFECTIOUS DISEASE PHYSICIAN: Dr. Mathew Rubin. ATTENDING PHYSICIAN ON THE DAY OF DISCHARGE: Frankie Maldonado MD CHIEF COMPLAINT: Abdominal pain and left lower leg cellulitis that seemed to possibly be worsening after discharge the previous day. PRINCIPAL DIAGNOSIS: Rectus sheath hematoma in the setting of new Eliquis for DVT treatment; left greater than right lower extremity cellulitis likely streptococcal. HISTORY OF PRESENT ILLNESS AND HOSPITAL COURSE: Skyla Childs is a 68-year-old female with a past medical history significant for hypertension, GERD, Mcelroy' s esophagus, edema, insulin-dependent diabetes mellitus with a recent admission 01/25/19 to 02/01/19 for suspected streptococcal lower extremity cellulitis, left worse than the right along with nonocclusive left leg DVT and sepsis. She had gotten approximately 7 days of cefepime and transitioned to p.o. clindamycin on the day of discharge 300 mg t.i.d. Please see H and P of Katie Morales NP for full details, but briefly she developed severe right lower abdominal pain upon getting into bed that continued the next morning. [place] [facility] [place] [facility], had a CT abdomen and pelvis which showed a small hematoma in the right rectus abdominis muscle. The ED physician was also concerned that the left leg cellulitis looked worse and she was referred to the hospitalist service for admission. She was already admitted to observation status. She did have a temperature of 100.4 and leukocytosis of 10.9. Her CRP was checked and 35.5. She was started on vancomycin and cefepime and had blood cultures. There have been no growth, just 3 days now. Her was continued and her abdominal pain had resolved. She was seen by Dr. Rubin in consultation who recommended switching back to the clindamycin (now she has only had 2 total doses). She had been advised that the leg would likely feel and look worse in the setting of it being more dependent with ambulation and the nature of this streptococcal infection. Hospital day #3 she developed slight macular rash underneath her bilateral breasts that was slightly itchy and it resolved with Benadryl. Her left leg was overall itchy as well. She felt like the pain had crept up slightly her left posterior calf. She lost IV access and was not able to be reestablished. Being that it was over the weekend , there was no environmental health technician available. I contacted Dr. Mathew Rubin who offered to see her in closer followup 2 days after discharge on Wednesday02/06/19 and it was decided that she was stable to continue oral clindamycin for her suspected streptococcal cellulitis. She had not yet established with [facility] and this will be arranged for them to call her next Wednesday02/06/19 two days after discharge. DISCHARGE MEDICATIONS: Include: 1. Tylenol 650 mg p.o. q.4 hours p.r.n. 2. Eliquis 5 mg p.o. b.i.d. 3. Clindamycin 300 mg p.o. t.i.d. 4. Dexilant 30 mg p.o. daily. 5. Benadryl 25 mg p.o. q.6 hours p.r.n. (new). 6. NovoLog sliding scale. 7. Detemir 20 units b.i.d. 8. p.o. daily. 7. Multivitamin 1 tab p.o. daily. 8. [place]-3 fatty acid 1000 mg p.o. daily. 9. Spironolactone 25 mg daily. 10. Valsartan 40 mg daily. FOLLOWUP: Please follow up with Dr. Lira within 7 to 10 days, Dr. Mathew Rubin within the next 3 to 5 days. She is being discharged with visiting nurse service who should be calling her within the next 2 to 3 days. DISCHARGE DIET: Heart healthy, carbohydrate consistent, unchanged. DISPOSITION: Home. CONDITION: Stable. TIME SEEN ON DISCHARGE: 35 minutes. [id number]/CPS #: [id number]
== END 2019-02-04 17:10 | disposition home or self-care (01) ==
LOC: ED 12:00 → MED 22:16 → INTOOBSV 22:16
PROVIDERS: ADMIT Internal Medicine; ATTEND Internal Medicine
DX: M79.81 Nontraumatic hematoma of soft tissue (principal); R10.9 Unspecified abdominal pain; L03.116 Cellulitis of left lower limb; I82.402 Acute embolism and thrombosis of unspecified deep veins of left lower extremity; I10 Essential (primary) hypertension; E11.9 Type 2 diabetes mellitus without complications; Z79.4 Long term (current) use of insulin; R60.0 Localized edema; K22.70 Barrett's esophagus without dysplasia; Z79.01 Long term (current) use of anticoagulants; Z79.899 Other long term (current) drug therapy; E07.9 Disorder of thyroid, unspecified; I73.9 Peripheral vascular disease, unspecified; K58.9 Irritable bowel syndrome, unspecified; E66.9 Obesity, unspecified
CPT/HCPCS: 36415; 74177; 80048; 80053; 83605; 83690; 85025; 86140; 87040; 96374; 96375; 96376; 99284; A9270-GY; G0378; J0692; J3370; Q9967

== ENCOUNTER 2019-06-23 16:53 | Emergency (ER) | payer MEDICARE, BC ==
[2019-06-23 17:32] VITALS: BP 113/45
--- NOTE | 2019-06-23 17:44 | UC ---
HPI Febrile Illness - HPI Summary HPI Summary: 18 HOURS OF SHAKING CHILLS AND FEVER---WORSENING ERYTHEMA, PAIN IN SWELLING IN ble (HX OF CELLULITIS AND LYMPHEDEMA) No nausea vomiting diarrhea respiratory or URI sx--no recent illness exposure - History of Current Complaint Chief Complaint: UCGeneralIllness Time Seen by Provider: 06/23/19 17:37 Hx Obtained From: Patient Onset/Duration: Started Hours Ago - 12, Atraumatic Timing: Constant Initial Severity: Moderate Current Severity: Moderate Pain Intensity: 5 Pain Scale Used: 0-10 Numeric Alleviating Factors: OTC Medicine Associated Signs and Symptoms: Arthralgia, Chills, Myalgia, Swelling - Additional Pertinent History Primary Care Physician: JONNIE - Allergy/Home Medications Allergies/Adverse Reactions: Allergies Allergy/AdvReac Type Severity Reaction Status Date / Time clindamycin Allergy Rash And Verified 06/23/19 19:32 Itching ibuprofen Allergy Unknown Verified 06/23/19 19:28 Reaction Details metformin Allergy Unknown Verified 06/23/19 19:28 Reaction Details NSAIDS (Non-Steroidal Allergy Unknown Verified 06/23/19 19:28 Anti-Inflamma Reaction Details various narcotics AdvReac Nausea Uncoded 06/23/19 19:28 PMH/Surg Hx/FS Hx/Imm Hx Previously Healthy: No Endocrine History: Diabetes Cardiovascular History: Hypertension Other History Of: Anticoagulant Therapy - DVT - Surgical History Surgical History: Yes Surgery Procedure, Year, and Place: HYSTERECTOMY; ENDOMETRIOSIS SURGERY; RT AND LT BREAST BIOPSY; BREAST REDUCTION;. MAY 2017 LUMBAR FUSION AND CYST REMOVAL;. back surgery 2018 - Family History Known Family History: Positive: Diabetes, Other - prostate and skin cancer, Non- Contributory - Social History Occupation: Retired Lives: With Family Alcohol Use: Rare Alcohol Amount: wine Substance Use Type: None Smoking Status (MU): Never Smoked Tobacco Have You Smoked in the Last Year: No - Immunization History Most Recent Influenza Vaccination: 2018 Most Recent Pneumonia Vaccination: 2016 Review of Systems All Other Systems Reviewed And Are Negative: Yes Constitutional: Positive: Fever, Chills, Fatigue Skin: Positive: Other - spreading warmith and erythema both lower extremities- left leg erythema is above her knee Eyes: Positive: Negative ENT: Positive: Negative Respiratory: Positive: Negative Cardiovascular: Positive: Negative Gastrointestinal: Positive: Negative Genitourinary: Positive: Negative Motor: Positive: Negative Neurovascular: Positive: Negative Musculoskeletal: Positive: Arthralgia, Calf Tenderness, Edema, Myalgia Neurological: Positive: Weakness Psychological: Positive: Negative Is Patient Immunocompromised?: No Physical Exam Triage Information Reviewed: Yes Appearance: Ill-Appearing, Pain Distress, Obese Vital Signs: Initial Vital Signs Temp 103.4 F 06/23/19 17:23 Pulse 95 06/23/19 17:23 Resp 22 06/23/19 17:23 BP 113/45 06/23/19 17:23 Pulse Ox 97 06/23/19 17:23 Vital Signs Reviewed: Yes Eye Exam: Normal Eyes: Positive: Conjunctiva Clear ENT Exam: Normal ENT: Positive: Normal ENT inspection, Hearing grossly normal, Pharynx normal. Negative: Trismus, Muffled voice, Hoarse voice Dental Exam: Normal Neck exam: Normal Neck: Positive: Supple, Nontender Respiratory Exam: Normal Respiratory: Positive: Chest non-tender, Lungs clear, Normal breath sounds, No respiratory distress, No accessory muscle use Cardiovascular Exam: Normal Cardiovascular: Positive: RRR, No Murmur, Pulses Normal, Brisk Capillary Refill Musculoskeletal Exam: Other Musculoskeletal: Positive: Strength Limited @ - chronic in lower legs, ROM Limited @ - chronic in feet, Edema @ Neurological Exam: Normal Neurological: Positive: Alert Psychological Exam: Normal Psychological: Positive: Normal Response To Family Skin: Positive: Other - hot red warm swollen lower extremities L>R Course/Dx - Course Course Of Treatment: to ed for further assessment , treatment and likely admission - Diagnoses Provider Diagnosis: Sepsis, Cellulitis Discharge ED - Sign-Out/Discharge Documenting (check all that apply): Patient Departure All imaging exams completed and their final reports reviewed: No Studies - Discharge Plan Condition: Guarded Disposition: HOME-RECOMMEND TO ED Patient Education Materials: Cellulitis (ED) Referrals: Robert Lira MD [Primary Care Provider] - Additional Instructions: Please go directly to the EMERGENCY DEPARTMENT for further care - Billing Disposition and Condition Condition: GUARDED Disposition: Home-Recommend to ED
[2019-06-23 17:55] LABS: Influenza A Molecular NEGATIVE (Negative); Influenza B Molecular NEGATIVE (Negative)
[2019-06-23] MEDS ORDERED: Acetaminophen TAB* 325 MG PO ONE (18:08)
== END 2019-06-23 18:25 | disposition home health service (06) ==
LOC: UCEAST 16:53
DX: A41.9 Sepsis, unspecified organism (principal); L03.116 Cellulitis of left lower limb; Z88.1 Allergy status to other antibiotic agents; Z88.8 Allergy status to other drugs, medicaments and biological substances; Z88.6 Allergy status to analgesic agent; E11.9 Type 2 diabetes mellitus without complications; I10 Essential (primary) hypertension
CPT/HCPCS: 99212; A9270-GY; G0463

== ENCOUNTER 2019-06-23 18:40 | Inpatient (IN) | payer MEDICARE, BC ==
[2019-06-23] MEDS ORDERED: NS 0.9% 1000 ML** 1,000 ML IV ONE (19:15)
[2019-06-23] MEDS ORDERED: Clindamycin 600 MG/D5W BAG(*) 600 MG/50 ML BAG IV ONE (19:17)
--- NOTE | 2019-06-23 19:41 | ED ---
HPI Febrile Illness - HPI Summary HPI Summary: 69-year-old female presents with fever for the past 2 days. States that started to notice the rash on her left leg was spreading. Has history cellulitis on this leg that started with these symptoms. Has history of chronic lymphedema. States that her legs have been more swollen than normal. She has had a slight cough. No chest pain or shortness of breath currently. Did have abdominal pain that is resolved. Did have an episode of vomiting. Denies any urinary symptoms. No sinus congestion. No one else is sick. Has history of diabetes. She has had a rash on her legs bilaterally since the last time was admitted for such in january. she has history of dvt in left leg that is on eliquis for. she had tyenlol at [facility]. flu neg [facility]. she was placed on clindamycin while admitted and has follow up with dr licona. - History of Current Complaint Chief Complaint: EDRashSkinAbscess Time Seen by Provider: 06/23/19 19:05 Pain Intensity: 8 - Additional Pertinent History Primary Care Physician: JONNIE - Allergy/Home Medications Allergies/Adverse Reactions: Allergies Allergy/AdvReac Type Severity Reaction Status Date / Time clindamycin Allergy Rash And Verified 06/23/19 19:32 Itching ibuprofen Allergy Unknown Verified 06/23/19 19:28 Reaction Details metformin Allergy Unknown Verified 06/23/19 19:28 Reaction Details NSAIDS (Non-Steroidal Allergy Unknown Verified 06/23/19 19:28 Anti-Inflamma Reaction Details various narcotics AdvReac Nausea Uncoded 06/23/19 19:28 Home Medications: Home Medications Insulin Detemir 24 units SUBCUT QPM 06/23/19 [History Confirmed 06/23/19] Torsemide TAB* 20 mg PO EVERY OTHER DAY 06/23/19 [History Confirmed 06/23/19] PMH/Surg Hx/FS Hx/Imm Hx Endocrine/Hematology History: Reports: Hx Diabetes, Hx Thyroid Disease Cardiovascular History: Reports: Hx Angina, Hx Hypercholesterolemia, Hx Hypertension, Hx Peripheral Vascular Disease Denies: Hx Cardiomegaly, Hx Congenital Heart Disease, Hx Congestive Heart Failure, Hx Pacemaker/ICD Respiratory History: Denies: Hx Asthma - A CHILD, Hx Cystic Fibrosis, Hx Pleural Effusion, Hx Pneumonia, Hx Pulmonary Embolism GI History: Reports: Hx Diverticulosis, Hx Gastroesophageal Reflux Disease, Hx Hiatal Hernia, Hx Irritable Bowel, Other GI Disorders - DIFFICULTY SWALLOWING, DIARRHEA/CONSTIPATION History: Reports: Other Problems/Disorders - INCONTINENCE Denies: Hx Dialysis, Hx Renal Disease Musculoskeletal History: Reports: Hx Arthritis, Hx Back Problems, Hx Orthopedic Injury, Other Musculoskeletal History - WEAKNESS/TREMORS Sensory History: Reports: Hx Cataracts, Hx Contacts or Glasses Denies: Hx Eye Injury, Hx Eye Prosthesis, Hx Legally Blind, Hx Macular Degeneration, Hx Vision Problem, Hx Hearing Aid, Hx Hearing Problem, Other Sensory Impairments Opthamlomology History: Reports: Hx Cataracts, Hx Contacts or Glasses Denies: Hx Eye Injury, Hx Eye Prosthesis, Hx Legally Blind, Hx Macular Degeneration, Hx Vision Problem, Other Sensory Impairments Neurological History: Reports: Hx Headaches, Other Neuro Impairments/Disorders - POST CONCUSSION SYNDROME, DIZZINESS Psychiatric History: Denies: Hx Depression, Hx Panic Disorder, Hx Suicide Attempt, Hx of Violent Episodes Against Others - Surgical History Surgery Procedure, Year, and Place: HYSTERECTOMY; ENDOMETRIOSIS SURGERY; RT AND LT BREAST BIOPSY; BREAST REDUCTION;. MAY 2017 LUMBAR FUSION AND CYST REMOVAL;. back surgery 2018 Infectious Disease History: No Infectious Disease History: Denies: Hx Clostridium Difficile, Hx Hepatitis, Hx of Known/Suspected MRSA, Hx Shingles, Hx Tuberculosis, Hx Known/Suspected VRE, Hx Known/Suspected VRSA, History Other Infectious Disease, Traveled Outside the [place] in Last 30 Days - Family History Known Family History: Positive: Diabetes, Other - prostate and skin cancer, Non- Contributory - Social History Alcohol Use: Rare Alcohol Amount: wine Hx Substance Use: No Substance Use Type: Reports: None Hx Tobacco Use: No Smoking Status (MU): Never Smoked Tobacco Have You Smoked in the Last Year: No Review of Systems Positive: Fever, Chills Negative: Chest Pain Positive: Cough. Negative: Shortness Of Breath Positive: Abdominal Pain, Nausea. Negative: Diarrhea Positive: Edema Positive: Rash All Other Systems Reviewed And Are Negative: Yes Physical Exam Triage Information Reviewed: Yes Vital Signs On Initial Exam: Initial Vitals Temp Pulse Resp BP Pulse Ox 101.7 F 96 22 147/56 97 06/23/19 18:42 06/23/19 18:42 06/23/19 18:42 06/23/19 18:42 06/23/19 18:42 Vital Signs Reviewed: Yes Appearance: Positive: Well-Appearing Skin: Positive: Other - erythematous rash warm to touch of left lower leg Head/Face: Positive: Normal Head/Face Inspection Eyes: Positive: Normal, Conjunctiva Clear ENT: Positive: Pharynx normal Respiratory/Lung Sounds: Positive: Clear to Auscultation, Breath Sounds Present Cardiovascular: Positive: Normal, RRR Musculoskeletal: Positive: Normal Neurological: Positive: Normal Psychiatric: Positive: Normal Procedures - Sedation Patient Received Moderate/Deep Sedation with Procedure: No Diagnostics - Vital Signs Vital Signs Temp Pulse Resp BP Pulse Ox 06/23/19 19:20 99.8 F 06/23/19 18:42 101.7 F 96 22 147/56 97 - Laboratory Result Diagrams: 06/23/19 19:25 06/23/19 19:25 Lab Statement: Any lab studies that have been ordered have been reviewed, and results considered in the medical decision making process. - Radiology chest Radiology Interpretation Completed By: ED Physician Summary of Radiographic Findings: no pneumonia - Ultrasound No standard instances Ultrasound Interpretation Completed By: Radiologist Summary of Ultrasound Findings: IMPRESSION: No evidence of DVT in the left leg. - EKG No standard instances Cardiac Rate: NL EKG Rhythm: Sinus Rhythm EKG Comparison: No Significant Change Summary of EKG Findings: sinus rhythm, RBBB Re-Evaluation - Re-Evaluation First Eval Re-Evaluation Time: 21:17 Change: Improved Comment: feeling better, discused that patient feels awful whenever she is on diuretics. states she is only able to take torsemide per dr serrato but she has severe side effects with such Course/Dx - Course Course Of Treatment: 69-year-old female presents with fever for the past 2 days. States that started to notice the rash on her left leg was spreading. Has history cellulitis on this leg that started with these symptoms. Has history of chronic lymphedema. States that her legs have been more swollen than normal. She has had a slight cough. No chest pain or shortness of breath currently. Did have abdominal pain that is resolved. Did have an episode of vomiting. Denies any urinary symptoms. No sinus congestion. No one else is sick. Has history of diabetes. She has had a rash on her legs bilaterally since the last time was admitted for such in january. On exam has erythematous rashes of left lower leg that is warm to touch. lungs CTA. Abdomen soft nontender. wbc 19. with significant lymphedema did not give full fluid bolus. crp elevated. Cr is 1.54. bnp is 523. troponin .04. u/s shows no dvt. discussed case with dr almaguer who agrees to admit. - Febrile Illness Differential Diagnoses: Cellulitis, Pneumonia, Viremia - Diagnoses Provider Diagnoses: Cellulitis, Fluid overload Discharge ED - Sign-Out/Discharge Documenting (check all that apply): Patient Departure - Discharge Plan Condition: Stable Disposition: ADMITTED TO [facility] - Billing Disposition and Condition Condition: STABLE Disposition: Admitted to [facility]
[2019-06-23 19:57] LABS: ABS Basophils 0.1 10^3/ul (0-0.2); ABS Lymphocytes 0.8 10^3/ul (1.0-4.8); ABS Monocytes 0.4 10^3/ul (0-0.8); ABS Neutrophils 17.8 10^3/ul (1.5-7.7); Hematocrit 31 % (35-47); Hemoglobin 10.7 g/dL (12.0-16.0); Lymphocyte % 4.2 %; Mean Corpuscular HGB Conc 35 g/dL (31-36); Mean Corpuscular Hemoglobin 29 pg (27-31); Mean Corpuscular Volume 83 fL (80-97); Mean Platelet Volume 9.5 fL (7.4-10.4); Platelet Count 219 10^3/uL (150-450); Red Blood Count 3.74 10^6 /uL (3.70-4.87); Red Cell Distribution Width 14 % (10-15); White Blood Count 19.1 10^3/uL (3.5-10.8)
[2019-06-23] MEDS ORDERED: ceFAZolin 1 GM ADVAN(*) 1 GM in NS 0.9% 50 ML* 50 ML IVPB ONE (20:03)
[2019-06-23 20:05] LABS: Activated Partial Thrombo Time 39.5 seconds (26.0-38.0); INR 2.4 (0.82-1.09)
[2019-06-23 20:14] LABS: ALT 17 U/L (7-52); AST 25 U/L (13-39); Albumin 3.5 g/dL (3.2-5.2); Albumin/Globulin Ratio 1.3 (1-3); Alkaline Phosphatase 57 U/L (34-104); Anion Gap 9 mmol/L (2-11); BUN/Creatinine Ratio 15.6 (8-20); Blood Urea Nitrogen 24 mg/dL (6-24); C Reactive Protein 250.55 mg/L (<8.01); CO2 Carbon Dioxide 22 mmol/L (22-32); Calcium 8.8 mg/dL (8.6-10.3); Chloride 103 mmol/L (101-111); EGFR African American 40.4 (>60); EGFR Non-African American 33.4 (>60); Globulin 2.8 g/dL (2-4); Glucose 191 mg/dL (70-100); Potassium 3.8 mmol/L (3.5-5.0); Sodium 134 mmol/L (135-145); Total Protein 6.3 g/dL (6.4-8.9)
[2019-06-23 20:19] LABS: Troponin I 0.04 ng/mL (<0.03)
[2019-06-23] MEDS ORDERED: Apixaban* 5 MG TAB PO SCH (21:00)
[2019-06-23] MEDS ORDERED: oxyCODONE/Acetamin 5/325 MG* TAB PO PRN (21:57)
[2019-06-23] MEDS ORDERED: Morphine INJ* 2 MG/ML 1 ML SYRINGE (TWO MG - NEW SYRINGE VERSION) IV PRN (21:57)
[2019-06-23] MEDS ORDERED: Al Hydrox/Mg Hydrox/Simet LIQ* 30 ML UDC PO PRN (21:57)
[2019-06-23] MEDS ORDERED: Acetaminophen TAB* 325 MG PO PRN (21:57)
[2019-06-23] MEDS ORDERED: Temazepam CAP* 15 MG PO PRN (21:57)
[2019-06-23] MEDS ORDERED: Magnesium Hydroxide LIQ* 30 ML UDC PO PRN (21:57)
[2019-06-23] MEDS ORDERED: Senna TAB 8.6 mg* TAB PO PRN (21:57)
[2019-06-23] MEDS ORDERED: Heparin VIAL(*) 5000 UNITS/ML VIAL (FIVE THOUSAND) SUBCUT SCH (22:00)
[2019-06-23] MEDS ORDERED: Dextrose 50% VIAL 50 ml IV PUSH PRN (22:02)
[2019-06-23] MEDS ORDERED: Docusate CAP* 100 MG PO PRN (22:54)
[2019-06-23] MEDS ORDERED: Insulin GLARGINE(*) 1 UNITS UNIT SUBCUT SCH (23:00)
[2019-06-23] MEDS ORDERED: Insulin LISPRO* 1 UNITS UNIT SUBCUT SCH (23:00)
[2019-06-23 23:16] LABS: Troponin I 0.03 ng/mL (<0.03)
--- NOTE | 2019-06-24 01:00 | HP ---
CC: Dr. Lira; Dr. Rubin HISTORY AND PHYSICAL: DATE OF ADMISSION: 06/23/19 PRIMARY CARE PROVIDER: Dr. Lira. CHIEF COMPLAINT: Fever. HISTORY OF PRESENT ILLNESS: Mrs. Childs is a 69-year-old female with a history of chronic lymphedem a and recurrent cellulitis, who presented to our hospital complaining of a fever of 104 degrees at ho [place]. She had a fever of 103 degrees in the emergency room. She also noted more swelling and erythema , especially in the left leg. She is going to be admitted with a diagnoses of sepsis and cellulitis. PAST MEDICAL HISTORY: 1. History of bilateral leg lymphedema and with recurrent cellulitis. 2. DVT, diagnosed in January 2019. 3. Hypertension. 4. Gastroesophageal reflux disease. 5. Mcelroy's esophagus. 6. Diabetes type 2, insulin dependent. 7. Chronic kidney disease, stage 3. 8. Hypertension. 9. Status post hysterectomy. 10. Breast reduction. 11. Spinal fusion. HOME MEDICATIONS: Include: 1. Torsemide 20 mg every other day. 2. Insulin detemir 24 units q.p.m., 26 units q.a.m. 3. Eliquis 5 mg b.i.d. 4. Acetaminophen on a p.r.n. basis. 5. Insulin NovoLog on a sliding scale. 6. Dexilant 30 mg daily. 7. Metoprolol succinate 25 mg daily. 8. Diovan 40 mg at bedtime. 9. Aldactone 25 mg daily. 10. [place]-3 fatty acids at 1000 mg a day. 11. Multivitamin 1 tab daily. ALLERGIES: Include CLINDAMYCIN causes rash; IBUPROFEN, the patient does not take due to her chronic kidney disease; METFORMIN, unknown reaction; NARCOTICS cause nausea. FAMILY HISTORY: Positive for father with history of quadruple bypass at the age of 85. Mother with history of basal cell cancer of the skin. Brother with fibrosarcoma. SOCIAL HISTORY: The patient lives with her , who is her surrogate. She denies any tobacco, a lcohol, or drug use. She uses a cane or walker for ambulation. She is a full code. Please note that the patient has problems with medications being produced in [place] and she takes only medications that are not made in [place] and she prefers non- generic medications. Therefore, she req uested to use all of her home medications by herself including insulin. REVIEW OF SYSTEMS: Positive for fever up to 104 degrees for the past 24 hours. Positive for nausea, no vomiting. Positive for worsening leg edema and left leg skin erythema. All the remaining 12 systems were reviewed with the patient and were otherwise negative. PHYSICAL EXAMINATION GENERAL: The patient is a very pleasant 69-year-old female, who is in no acute distress. The patien t is alert and oriented x3. VITAL SIGNS: Blood pressure of 130/50, heart rate of 83 and regular, respiratory rate of 22, oxygen saturation 92% on room air, temperature of 103.4 on presentation, currently 99.8. HEENT: Head atraumatic and normocephalic. Eyes: Pupils are equal, round, and reactive to light and accommodation. Oropharynx clear. Mucosa dry. NECK: Supple. No JVD. No bruits bilaterally. RESPIRATORY: Clear to auscultation bilaterally. CARDIOVASCULAR: Regular rate and rhythm. No murmur. ABDOMEN: Soft, nontender. Bowel sounds present in all 4 quadrants. EXTREMITIES: Bilateral leg lymphedema noted. Pulses +2 bilaterally. There is no clubbing, no cyano sis. There is chronic lymphedema associated erythema of right lower extremity, noted distally in bet ween the ankle and approximately skin surrounding the 10 cm within the ankle on the right. On the le ft, there is mild erythema with cellulitis with edema surrounding the area of between the patient's a nkle and the patient's knee level. Streaking of the skin noted. There are areas of ulcers covered w ith eschar on the anterior aspect of the fay on the left side. These are approximately [address] and there are couple of them. There are no other skin abnormalities noted. NEUROLOGIC: On neuro evaluation, speech is clear. Cranial nerves II through XII grossly intact. Mo tor strength is 5/5 bilaterally. DIAGNOSTIC STUDIES/LAB DATA: White blood cell count 19.1, hemoglobin 10.7, hematocrit of 31, and pl atelets of 219. Sodium of 134, potassium 3.8, chloride 103, carbon dioxide 22, BUN 24, creatinine 1.54. Liver functi on tests unremarkable. Glucose of 191, lactic acid 1.6. Troponin of 0.04. C-reactive protein of 250. The patient's EKG showed normal sinus rhythm with a heart rate of 87 beats per minute with right bund le-branch block. Venous Doppler study was negative for DVT. ASSESSMENT AND PLAN: 1. Sepsis in patient with history of lymphedema due to cellulitis. The patient is going to continue on the Keflex that was started in the emergency room. Last time, she was on antibiotics with doxycy holly in April 2019. She already received a bolus of intravenous fluid and there is history of nee ding diuretic, I will not start more IV fluids. Blood cultures were obtained in the ED. 2. In regards the patient's chronic renal insufficiency, it is slightly worse than before. Neverthe less, she has marked edema. I will continue checking the patient's weight daily and continue her diu retics including torsemide and Aldactone. 3. For diabetes, I will continue her insulin sliding scale with aspart, which as per the patient is going to be her own insulin, which she requested. We will also continue her Levemir, but at the lowe r dose at 10 units daily. That can be titrated as needed. 4. For deep vein thrombosis diagnosed in January 2019, we will continue the patient's Eliquis at 5 mg b .i.d. 5. For hypertension, her valsartan and metoprolol are going to be continued. 6. For DVT prophylaxis, once again the patient is already on Eliquis. 7. The patient's code status is full. Her surrogate is her . TIME SPENT: Approximately 72 minutes were spent on the admission of this patient, more than half corazon t time was spent [id number] with the patient during the interview and physical exam. [id number]/[facility] #: [id number]
[2019-06-24] MEDS: VALSARTAN 40 MG PO SCH ×2 (02:59→21:30)
[2019-06-24] MEDS ORDERED: ACETAMINOPHEN 500 MG PO PRN (03:00)
[2019-06-24] MEDS: INSULIN DETEMIR 100 UNIT/ML SUBCUT SCH ×2 (03:12→21:31)
[2019-06-24 04:52] LABS: Urine Appearance Cloudy; Urine Bilirubin Negative (Negative); Urine Blood 1+ (Negative); Urine Color Yellow; Urine Glucose Negative (Negative); Urine Ketones Trace (Negative); Urine Nitrite Negative (Negative); Urine Protein 1+(30 mg/dL) (Negative); Urine Urobilinogen Negative (Negative)
[2019-06-24 05:12] LABS: Urine Bacteria 1+ (Absent); Urine Red Blood Cell 1+(3-5/hpf) (Absent); Urine Squamous Epithelial Cell Present (Absent); Urine White Blood Cell 3+(>20/hpf) (Absent)
[2019-06-24 05:14] LABS: ABS Lymphocytes 1.2 10^3/ul (1.0-4.8); ABS Monocytes 0.5 10^3/ul (0-0.8); Eosinophil % 0.1 %; Hematocrit 30 % (35-47); Hemoglobin 9.9 g/dL (12.0-16.0); Lymphocyte % 7.9 %; Mean Corpuscular HGB Conc 33 g/dL (31-36); Mean Corpuscular Hemoglobin 28 pg (27-31); Mean Corpuscular Volume 85 fL (80-97); Mean Platelet Volume 9.4 fL (7.4-10.4); Platelet Count 194 10^3/uL (150-450); Red Blood Count 3.55 10^6 /uL (3.70-4.87); Red Cell Distribution Width 15 % (10-15); White Blood Count 15.7 10^3/uL (3.5-10.8)
[2019-06-24 05:22] LABS: BUN/Creatinine Ratio 15.5 (8-20); Calcium 8.9 mg/dL (8.6-10.3); EGFR African American 44.4 (>60); EGFR Non-African American 36.7 (>60); Potassium 3.9 mmol/L (3.5-5.0)
[2019-06-24] MEDS: ceFAZolin 1 GM ADVAN(*) 1 GM in NS 0.9% 50 ML* 50 ML IVPB SCH ×3 (05:31→21:31)
--- NOTE | 2019-06-24 08:19 | HP ---
HISTORY AND PHYSICAL: ADDENDUM: Please note that the patient's troponin was 0.04. It is likely due to demand ischemia. The patient complains of no chest pain, no shortness of breath, and no other cardiac symptoms. She has no acute changes on the EKG. Nevertheless, the patient is going to be observed in telemetry monitored bed and a second troponin is going to be obtained. [id number]/[facility] #: [id number] MTDD
[2019-06-24] MEDS: INSULIN ASPART 1 UNIT SUBCUT SCH ×4 (08:33→21:36)
[2019-06-24] MEDS: DEXLANSOPRAZOLE 30 MG PO SCH (08:38)
[2019-06-24] MEDS: APIXABAN 5 MG PO SCH ×2 (08:38→21:29)
[2019-06-24] MEDS: METOPROLOL SUCCINATE 25 MG PO SCH (08:39)
[2019-06-24] MEDS: SPIRONOLACTONE 25 MG PO SCH (08:39)
[2019-06-24] MEDS ORDERED: Docusate CAP* 100 MG PO SCH (09:00)
--- NOTE | 2019-06-24 10:21 | PN ---
Subjective Date of Service: 06/24/19 Interval History: No acute events overnight. fever resolved. WBC improved. Had Tmax 104.8 on Thanksgiving along with freezing chills and what sounds like rigors. Did not take her prn doxy (was waiting for call back from ID) Some abdominal bloating/discomfort Does see a interpersonal communications professor 2x/week but increasingly deconditioned as was told to stay in bed with legs elevated unless absolutely necessary. with parkinson's Just had an ECHO done with Dr. Fitch last week, was not called with any results yet. Pain in the legs Objective Active Medications: Al Hydrox/Mg Hydrox/Simethicone (Maalox Plus*) 30 ml PO Q6H PRN PRN Reason: INDIGESTION Apixaban (Eliquis*) 5 mg PO BID [facility] Last Admin: 06/24/19 08:38 Dose: 5 mg Dexlansoprazole (Dexilant (Nf)) 30 mg PO DAILY [facility] Last Admin: 06/24/19 08:38 Dose: 30 mg Dextrose (Dextrose 50% Vial 50 Ml*) 25 ml IV PUSH .FOR FS < 60 - SS PRN PRN Reason: FS < 60 Docusate Sodium (Colace Cap*) 100 mg PO BID PRN PRN Reason: constopation Cefazolin Sodium 1 gm/ Sodium (Chloride) 50 mls @ 200 mls/hr IVPB Q8H [facility] Last Admin: 06/24/19 05:31 Dose: 200 mls/hr Insulin Aspart (Novolog (Nf)) 0 units SUBCUT ACHS [facility]; Protocol Last Admin: 06/24/19 08:33 Dose: 1 unit Insulin Detemir (Levemir (Nf)) 10 unit SUBCUT BEDTIME [facility] Last Admin: 06/24/19 03:12 Dose: 10 unit Magnesium Hydroxide (Milk Of Magnesia Liq*) 30 ml PO Q4H PRN PRN Reason: CONSTIPATION Metoprolol Succinate (Toprol Xl Tab*) 25 mg PO DAILY [facility] Last Admin: 06/24/19 08:39 Dose: 25 mg Pto: Acetaminophen (500 Mg Caplets) 1 dose PO Q4H PRN PRN Reason: PAIN-MILD/TEMP >/= 100.4 Oxycodone/Acetaminophen (Percocet 5/325 Tab*) 1 tab PO Q4H PRN PRN Reason: PAIN - MODERATE Senna (Senokot 8.6 Mg Tab*) 1 tab PO BID PRN PRN Reason: CONSTIPATION Spironolactone (Aldactone Tab*) 25 mg PO DAILY [facility] Last Admin: 06/24/19 08:39 Dose: 25 mg Temazepam (Restoril Cap*) 15 mg PO BEDTIME PRN PRN Reason: INSOMNIA Torsemide (Demadex*) 20 mg PO MoWeSa@2100 [facility] Valsartan (Diovan Tab*) 40 mg PO BEDTIME [facility] Last Admin: 06/24/19 02:59 Dose: 40 mg Vital Signs - 8 hr 06/24/19 04:38 Temperature 99.5 F Pulse Rate 90 Respiratory 18 Rate Blood Pressure 157/55 (mmHg) O2 Sat by Pulse 98 Oximetry Oxygen Devices in Use Now: None Appearance: NAD Eyes: No Scleral Icterus Neck: NL Appearance and Movements; NL JVP, Trachea Midline Respiratory: Symmetrical Chest Expansion and Respiratory Effort, Clear to Auscultation Cardiovascular: NL Sounds; No Murmurs; No JVD, RRR Abdominal: - - soft, nontender, obese Extremities: - - 2+ nonpitting edema, erythema extending to knee on left. warmth lower legs bilaterally. crusted ulceration on anterior and posterior left lower extremity, smaller ulcerations on right lower extremity, no drainage or fluctuance. Skin: - - as above Neurological: Alert and Oriented x 3, NL Muscle Strength and Tone Result Diagrams: 06/24/19 04:51 06/24/19 04:51 Additional Lab and Data: Laboratory Results - last 24 hr 06/23/19 06/23/19 06/23/19 19:25 19:25 19:25 WBC 19.1 H RBC 3.74 Hgb 10.7 L Hct 31 L MCV 83 MCH 29 MCHC 35 RDW 14 Plt Count 219 MPV 9.5 Neut % (Auto) 93.2 Lymph % (Auto) 4.2 [place] % (Auto) 2.1 Eos % (Auto) 0.0 Baso % (Auto) 0.5 Absolute Neuts (auto) 17.8 H Absolute Lymphs (auto) 0.8 L Absolute Monos (auto) 0.4 Absolute Eos (auto) 0.0 Absolute Basos (auto) 0.1 Absolute Nucleated RBC 0.0 Nucleated RBC % 0.0 INR (Anticoag Therapy) 2.40 H APTT 39.5 H Sodium 134 L Potassium 3.8 Chloride 103 Carbon Dioxide 22 Anion Gap 9 BUN 24 Creatinine 1.54 H Est GFR ( Amer) 40.4 Est GFR (Non-Af Amer) 33.4 BUN/Creatinine Ratio 15.6 Glucose 191 H POC Glucose (mg/dL) Lactic Acid Calcium 8.8 Total Bilirubin 0.90 AST 25 ALT 17 Alkaline Phosphatase 57 Troponin I 0.04 H* C-Reactive Protein 250.55 H B-Natriuretic Peptide Total Protein 6.3 L Albumin 3.5 Globulin 2.8 Albumin/Globulin Ratio 1.3 Urine Color Urine Appearance Urine pH Ur Specific [place] Urine Protein Urine Ketones Urine Blood Urine Nitrate Urine Bilirubin Urine Urobilinogen Ur Leukocyte Esterase Urine WBC (Auto) Urine RBC (Auto) Ur Squamous Epith Cells Urine Bacteria Urine Glucose 06/23/19 06/23/19 06/23/19 19:25 19:25 22:21 WBC RBC Hgb Hct MCV MCH MCHC RDW Plt Count MPV Neut % (Auto) Lymph % (Auto) [place] % (Auto) Eos % (Auto) Baso % (Auto) Absolute Neuts (auto) Absolute Lymphs (auto) Absolute Monos (auto) Absolute Eos (auto) Absolute Basos (auto) Absolute Nucleated RBC Nucleated RBC % INR (Anticoag Therapy) APTT Sodium Potassium Chloride Carbon Dioxide Anion Gap BUN Creatinine Est GFR ( Amer) Est GFR (Non-Af Amer) BUN/Creatinine Ratio Glucose POC Glucose (mg/dL) Lactic Acid 1.6 Calcium Total Bilirubin AST ALT Alkaline Phosphatase Troponin I 0.03 H* C-Reactive Protein B-Natriuretic Peptide 523 H Total Protein Albumin Globulin Albumin/Globulin Ratio Urine Color Urine Appearance Urine pH Ur Specific [place] Urine Protein Urine Ketones Urine Blood Urine Nitrate Urine Bilirubin Urine Urobilinogen Ur Leukocyte Esterase Urine WBC (Auto) Urine RBC (Auto) Ur Squamous Epith Cells Urine Bacteria Urine Glucose 06/24/19 06/24/19 06/24/19 02:59 04:15 04:51 WBC 15.7 H RBC 3.55 L Hgb 9.9 L Hct 30 L MCV 85 MCH 28 MCHC 33 RDW 15 Plt Count 194 MPV 9.4 Neut % (Auto) 88.8 Lymph % (Auto) 7.9 [place] % (Auto) 3.0 Eos % (Auto) 0.1 Baso % (Auto) 0.2 Absolute Neuts (auto) 14.0 H Absolute Lymphs (auto) 1.2 Absolute Monos (auto) 0.5 Absolute Eos (auto) 0.0 Absolute Basos (auto) 0.0 Absolute Nucleated RBC 0.0 Nucleated RBC % 0.0 INR (Anticoag Therapy) APTT Sodium Potassium Chloride Carbon Dioxide Anion Gap BUN Creatinine Est GFR ( Amer) Est GFR (Non-Af Amer) BUN/Creatinine Ratio Glucose POC Glucose (mg/dL) 168 H Lactic Acid Calcium Total Bilirubin AST ALT Alkaline Phosphatase Troponin I C-Reactive Protein B-Natriuretic Peptide Total Protein Albumin Globulin Albumin/Globulin Ratio Urine Color Yellow Urine Appearance Cloudy Urine pH 5.0 Ur Specific [place] 1.030 Urine Protein 1+(30 mg/dl) A Urine Ketones Trace A Urine Blood 1+ A Urine Nitrate Negative Urine Bilirubin Negative Urine Urobilinogen Negative Ur Leukocyte Esterase 3+ A Urine WBC (Auto) 3+(>20/hpf) A Urine RBC (Auto) 1+(3-5/hpf) A Ur Squamous Epith Cells Present A Urine Bacteria 1+ A Urine Glucose Negative 06/24/19 06/24/19 04:51 07:40 WBC RBC Hgb Hct MCV MCH MCHC RDW Plt Count MPV Neut % (Auto) Lymph % (Auto) [place] % (Auto) Eos % (Auto) Baso % (Auto) Absolute Neuts (auto) Absolute Lymphs (auto) Absolute Monos (auto) Absolute Eos (auto) Absolute Basos (auto) Absolute Nucleated RBC Nucleated RBC % INR (Anticoag Therapy) APTT Sodium 136 Potassium 3.9 Chloride 105 Carbon Dioxide 24 Anion Gap 7 BUN 22 Creatinine 1.42 H Est GFR ( Amer) 44.4 Est GFR (Non-Af Amer) 36.7 BUN/Creatinine Ratio 15.5 Glucose 145 H POC Glucose (mg/dL) 142 H Lactic Acid Calcium 8.9 Total Bilirubin AST ALT Alkaline Phosphatase Troponin I C-Reactive Protein B-Natriuretic Peptide Total Protein Albumin Globulin Albumin/Globulin Ratio Urine Color Urine Appearance Urine pH Ur Specific [place] Urine Protein Urine Ketones Urine Blood Urine Nitrate Urine Bilirubin Urine Urobilinogen Ur Leukocyte Esterase Urine WBC (Auto) Urine RBC (Auto) Ur Squamous Epith Cells Urine Bacteria Urine Glucose Assess/Plan/Problems-Billing Assessment: 69 yo female PMH chronic lymphadema, grade II diastolic dysfunction (as of Feb 2015), CKD III, obesity, IDDM p/w sepsis secondary to left lower extremity cellulitis. - Patient Problems (1) Sepsis Current Visit: Yes Status: Acute Comment: fever, leukocytosis, HR >90, source LLE cellulitis. No lactic acidosis. s/p 1L NS fluid bolus but not full 30cc/kg dose given elevated BNP continue Cefazolin. f/u BCxs (2) Diastolic CHF Current Visit: Yes Status: Acute Code(s): I50.30 - UNSPECIFIED DIASTOLIC ( CONGESTIVE) HEART FAILURE SNOMED Code(s): 825495383 Comment: Request records from Dr. Fitch who just last week ordered an outpatient ECHO. Prior was February 2015 which showed grade 1 diastolic dysfunction, EF 55-60%, mild MVR. daily weights strict io continue torsemide and aldactone for now. (3) IDDM (insulin dependent diabetes mellitus) Current Visit: Yes Status: Acute Code(s): E11.9 - TYPE 2 DIABETES MELLITUS WITHOUT COMPLICATIONS; Z79.4 - MCFP (CURRENT) USE OF INSULIN SNOMED Code( s): 79115755 Comment: Lantus 10U qam (home was 26AM, 24AM) SSI POC glucose qachs (4) Cellulitis Current Visit: No Status: Acute Code(s): L03.90 - CELLULITIS, UNSPECIFIED SNOMED Code(s): 843561638 Comment: Hx of suspected Strep cellulitis in January. Now recurrent cellulitis. Has been following with ID Dr. Rubin as outpatient. Contiue cefazolin 1gm q8. Does not want retrial of clinda given generalized rash last time. (5) Lymphedema Current Visit: No Status: Acute Code(s): I89.0 - LYMPHEDEMA, NOT ELSEWHERE CLASSIFIED SNOMED Code(s): 401973868 Comment: - Elevate LEs She is still waiting on getting into [facility] for over a year , considering going to [facility] (which I did recommend). Has also been seen by Conchita Vallecillo in [place] but was not tolerant of compression systems offered at that time (felt like pushed fluid into abdomen) (6) Full code status Current Visit: No Status: Acute Code(s): Z78.9 - OTHER SPECIFIED HEALTH STATUS SNOMED Code(s): 133874269 Comment: Full code (7) DVT prophylaxis Current Visit: No Status: Acute Code(s): Z29.9 - ENCOUNTER FOR PROPHYLACTIC MEASURES, UNSPECIFIED SNOMED Code(s): 346397781 Comment: - Continue eliquis as per above. (8) Deep vein thrombosis (DVT) of left lower extremity Current Visit: No Status: Acute Code(s): I82.402 - ACUTE EMBOLISM AND THOMBOS UNSP DEEP VEINS OF L LOW EXTREM SNOMED Code(s): 455765862 Comment: - LLE superficial femoral vein back in January, Seeing heme onc as outpatient. - duplex 06/23 did not show DVT on left - continue eliquis 5 mg BID Status and Disposition: medicine inpatient for sepsis.
[2019-06-24] MEDS ORDERED: Acetaminophen TAB* 325 MG PO PRN (10:38)
[2019-06-24 13:23] LABS: Erythrocyte Sed Rate 78 mm/Hr (0-29)
[2019-06-24] MEDS ORDERED: TORSEMIDE 20 MG PO SCH (21:00)
[2019-06-25] MEDS: ceFAZolin 1 GM ADVAN(*) 1 GM in NS 0.9% 50 ML* 50 ML IVPB SCH (05:19)
[2019-06-25 05:55] LABS: ABS Basophils 0.1 10^3/ul (0-0.2); ABS Eosinophils 0.3 10^3/ul (0-0.6); ABS Monocytes 0.9 10^3/ul (0-0.8); ABS Neutrophils 12.6 10^3/ul (1.5-7.7); Hematocrit 30 % (35-47); Hemoglobin 10.1 g/dL (12.0-16.0); Lymphocyte % 12.5 %; Mean Corpuscular HGB Conc 34 g/dL (31-36); Mean Corpuscular Hemoglobin 29 pg (27-31); Mean Corpuscular Volume 85 fL (80-97); Mean Platelet Volume 9.4 fL (7.4-10.4); Platelet Count 208 10^3/uL (150-450); Red Blood Count 3.51 10^6 /uL (3.70-4.87); Red Cell Distribution Width 15 % (10-15); White Blood Count 15.8 10^3/uL (3.5-10.8)
[2019-06-25 06:11] LABS: BUN/Creatinine Ratio 12.5 (8-20); C Reactive Protein 253.11 mg/L (<8.01); Calcium 8.8 mg/dL (8.6-10.3); EGFR African American 43.7 (>60); EGFR Non-African American 36.1 (>60); Potassium 3.4 mmol/L (3.5-5.0)
[2019-06-25 08:10] LABS: Magnesium 1.9 mg/dL (1.9-2.7)
[2019-06-25] MEDS ORDERED: Magnesium Sulfate 1 GM IV* 1 GM/100 ML BAG IV ONE (08:30)
[2019-06-25] MEDS: METOPROLOL SUCCINATE 25 MG PO SCH (08:51)
[2019-06-25] MEDS: APIXABAN 5 MG PO SCH ×2 (08:51→22:04)
[2019-06-25] MEDS: INSULIN ASPART 1 UNIT SUBCUT SCH ×7 (08:51→22:07)
[2019-06-25] MEDS: SPIRONOLACTONE 25 MG PO SCH (08:52)
[2019-06-25] MEDS: DEXLANSOPRAZOLE 30 MG PO SCH (08:52)
[2019-06-25] MEDS ORDERED: Insulin LISPRO* 1 UNITS UNIT SUBCUT ONE (09:06)
--- NOTE | 2019-06-25 09:17 | PN ---
Subjective Date of Service: 06/25/19 Interval History: No acute events overnight, afebrile. Tmax 99.2 at 3am still getting episodes of chills and drenching sweats. Pain in posterior superior left calf ranging between 4 at rest to 9 with certain movements getting to commode. WBC and CRP essentailly unchanged at 15.8 and 253 developed intermittent productive cough yesterday. Denies SOB. Appetite poor, still feels like abdomen is "hard" has large volume of urine in commode that she has been saving as requested but that has not been documented. Has been getting hypoglycemia to 48 about 5 times over the last two weeks on her new home insulin regimen (usually ~4pm, symptomatic, takes 1-2 of her 10g carb fruit squares), sometimes skips lunch. Objective Active Medications: Al Hydrox/Mg Hydrox/Simethicone (Maalox Plus*) 30 ml PO Q6H PRN PRN Reason: INDIGESTION Apixaban (Eliquis*) 5 mg PO BID [facility] Last Admin: 06/25/19 08:51 Dose: 5 mg Dexlansoprazole (Dexilant (Nf)) 30 mg PO DAILY [facility] Last Admin: 06/25/19 08:52 Dose: 30 mg Dextrose (Dextrose 50% Vial 50 Ml*) 25 ml IV PUSH .FOR FS < 60 - SS PRN PRN Reason: FS < 60 Docusate Sodium (Colace Cap*) 100 mg PO BID PRN PRN Reason: constopation Cefazolin Sodium 1 gm/ Sodium (Chloride) 50 mls @ 200 mls/hr IVPB Q8H [facility] Last Admin: 06/25/19 05:19 Dose: 200 mls/hr Insulin Aspart (Novolog (Nf)) 0 units SUBCUT ACHS [facility]; Protocol Last Admin: 06/24/19 21:36 Dose: 4 unit Insulin Aspart (Novolog (Nf)) 3 unit SUBCUT ONCE ONE Stop: 06/25/19 09:07 Insulin Detemir (Levemir (Nf)) 10 unit SUBCUT BEDTIME [facility] Last Admin: 06/24/19 21:31 Dose: 10 unit Magnesium Hydroxide (Milk Of Magnesia Liq*) 30 ml PO Q4H PRN PRN Reason: CONSTIPATION Metoprolol Succinate (Toprol Xl Tab*) 25 mg PO DAILY [facility] Last Admin: 06/25/19 08:51 Dose: 25 mg Pto: Acetaminophen (500 Mg Caplets) 1 dose PO Q4H PRN PRN Reason: PAIN-MILD/TEMP >/= 100.4 Last Admin: 06/24/19 11:17 Dose: 1 dose Oxycodone/Acetaminophen (Percocet 5/325 Tab*) 1 tab PO Q4H PRN PRN Reason: PAIN - MODERATE Potassium Chloride (Potassium Chloride Liquid) 40 meq PO ONCE ONE Stop: 06/25/19 10:01 Senna (Senokot 8.6 Mg Tab*) 1 tab PO BID PRN PRN Reason: CONSTIPATION Spironolactone (Aldactone Tab*) 25 mg PO DAILY [facility] Last Admin: 06/25/19 08:52 Dose: 25 mg Temazepam (Restoril Cap*) 15 mg PO BEDTIME PRN PRN Reason: INSOMNIA Torsemide (Demadex*) 20 mg PO [id number] [facility] Last Admin: 06/24/19 21:29 Dose: 20 mg Valsartan (Diovan Tab*) 40 mg PO BEDTIME [facility] Last Admin: 06/24/19 21:30 Dose: 40 mg Vital Signs - 8 hr 06/25/19 06/25/19 03:35 07:15 Temperature 99.2 F 98.6 F Pulse Rate 80 80 Respiratory 16 18 Rate Blood Pressure 144/63 137/55 (mmHg) O2 Sat by Pulse 95 97 Oximetry Oxygen Devices in Use Now: None Appearance: NAD Eyes: No Scleral Icterus Respiratory: Symmetrical Chest Expansion and Respiratory Effort, Clear to Auscultation Cardiovascular: NL Sounds; No Murmurs; No JVD Abdominal: - - soft, nontender, obese Extremities: - - nonpitting edema in b/l LE. left leg erythema unchanged up to the line below knee. warmth unchanged. right extremity with some scabbed ulcerations, warm but much less erythematous. Neurological: Alert and Oriented x 3, NL Sensation Nutrition: Taking PO's Result Diagrams: 06/25/19 05:34 06/25/19 05:34 Additional Lab and Data: Laboratory Results - last 24 hr 06/24/19 06/24/19 06/24/19 04:51 16:58 21:21 WBC RBC Hgb Hct MCV MCH MCHC RDW Plt Count MPV Neut % (Auto) Lymph % (Auto) [place] % (Auto) Eos % (Auto) Baso % (Auto) Absolute Neuts (auto) Absolute Lymphs (auto) Absolute Monos (auto) Absolute Eos (auto) Absolute Basos (auto) Absolute Nucleated RBC Nucleated RBC % ESR 78 H Sodium Potassium Chloride Carbon Dioxide Anion Gap BUN Creatinine Est GFR ( Amer) Est GFR (Non-Af Amer) BUN/Creatinine Ratio Glucose POC Glucose (mg/dL) 144 H 219 H Calcium Magnesium C-Reactive Protein 06/25/19 06/25/19 06/25/19 05:34 05:34 07:40 WBC 15.8 H RBC 3.51 L Hgb 10.1 L Hct 30 L MCV 85 MCH 29 MCHC 34 RDW 15 Plt Count 208 MPV 9.4 Neut % (Auto) 79.5 Lymph % (Auto) 12.5 [place] % (Auto) 5.5 Eos % (Auto) 2.0 Baso % (Auto) 0.5 Absolute Neuts (auto) 12.6 H Absolute Lymphs (auto) 2.0 Absolute Monos (auto) 0.9 H Absolute Eos (auto) 0.3 Absolute Basos (auto) 0.1 Absolute Nucleated RBC 0.0 Nucleated RBC % 0.0 ESR Sodium 136 Potassium 3.4 L Chloride 102 Carbon Dioxide 24 Anion Gap 10 BUN 18 Creatinine 1.44 H Est GFR ( Amer) 43.7 Est GFR (Non-Af Amer) 36.1 BUN/Creatinine Ratio 12.5 Glucose 130 H POC Glucose (mg/dL) 133 H Calcium 8.8 Magnesium 1.9 C-Reactive Protein 253.11 H 06/25/19 11:57 WBC RBC Hgb Hct MCV MCH MCHC RDW Plt Count MPV Neut % (Auto) Lymph % (Auto) [place] % (Auto) Eos % (Auto) Baso % (Auto) Absolute Neuts (auto) Absolute Lymphs (auto) Absolute Monos (auto) Absolute Eos (auto) Absolute Basos (auto) Absolute Nucleated RBC Nucleated RBC % ESR Sodium Potassium Chloride Carbon Dioxide Anion Gap BUN Creatinine Est GFR ( Amer) Est GFR (Non-Af Amer) BUN/Creatinine Ratio Glucose POC Glucose (mg/dL) 172 H Calcium Magnesium C-Reactive Protein Microbiology and Other Data: Microbiology 06/24/19 04:15 Urine Urine Culture - Final 06/23/19 19:25 Blood Venous Aerobic Blood Culture - Preliminary No Growth Day 1 11/29/19 19:25 Blood Venous Anaerobic Blood Culture - Preliminary No Growth Day 1 06/23/19 19:25 Blood Venous Aerobic Blood Culture - Preliminary No Growth Day 1 06/23/19 19:25 Blood Venous Anaerobic Blood Culture - Preliminary No Growth Day 1 Assess/Plan/Problems-Billing Assessment: 69 yo female PMH chronic lymphadema, grade II diastolic dysfunction (as of Feb 2015), CKD III, obesity, IDDM p/w sepsis secondary to left lower extremity cellulitis. BNP newly elevated to 500. - Patient Problems (1) Sepsis Current Visit: Yes Status: Acute Comment: fever, leukocytosis, HR >90, source LLE cellulitis. No lactic acidosis. s/p 1L NS fluid bolus in ED but did not get full 30cc/kg dose. presented with newly elevated BNP f/u BCxs. NGTDx1 day Not any improvement in cellulitis exam or labs with persistent leukocytosis and unchanged CRP. Will switch to vancomycin and get a MRSA nares. (2) Diastolic CHF Current Visit: Yes Status: Acute Code(s): I50.30 - UNSPECIFIED DIASTOLIC ( CONGESTIVE) HEART FAILURE SNOMED Code(s): 838609680 Comment: Requested records from Dr. Fitch who just last week did an outpatient ECHO (Pt has not been called with results yet). Prior was February 2015 (available through [facility] records) which showed grade 2 diastolic dysfunction, EF 55-60%, mild MVR. daily weights strict io (please document!!, have requested to RN) continue metoprolol and aldactone. got her home (every other day) torsemide 20mg last night. Will switch to lasix 20mg IV daily (3) IDDM (insulin dependent diabetes mellitus) Current Visit: Yes Status: Acute Code(s): E11.9 - TYPE 2 DIABETES MELLITUS WITHOUT COMPLICATIONS; Z79.4 - [facility] (CURRENT) USE OF INSULIN SNOMED Code( s): 89854599 Comment: Increase Lantus from 10U to 15U qpm. BG mid 150-220s Of note home was 26U AM, 24U PM with 05/04/14 but of note was getting frequent symptomatic hypogylcemia to 48 five times in last 2 weeks. ) add lispro qac with continued additional SSI coverage POC glucose qachs (4) Cellulitis Current Visit: No Status: Acute Code(s): L03.90 - CELLULITIS, UNSPECIFIED SNOMED Code(s): 475812369 Comment: Hx of suspected Strep cellulitis in January. Now recurrent cellulitis. Has been following with ID Dr. Rubin as outpatient. Was on cefazolin 1gm q8 but will switch to vancomycin as did not really improve via labs or exam since yesterday Does not want retrial of clinda given generalized rash last time (though of note she did complete the course) (5) Lymphedema Current Visit: No Status: Acute Code(s): I89.0 - LYMPHEDEMA, NOT ELSEWHERE CLASSIFIED SNOMED Code(s): 939599859 Comment: - Elevate LEs She is still waiting on getting into [place] for over a year , considering going to [place] (which I did recommend). Has also been seen by Conchita Vallecillo in [place] but was not tolerant of compression systems offered at that time (felt like pushed fluid into abdomen) (6) Full code status Current Visit: No Status: Acute Code(s): Z78.9 - OTHER SPECIFIED HEALTH STATUS SNOMED Code(s): 883166248 Comment: Full code (7) DVT prophylaxis Current Visit: No Status: Acute Code(s): Z29.9 - ENCOUNTER FOR PROPHYLACTIC MEASURES, UNSPECIFIED SNOMED Code(s): 611241861 Comment: - Continue eliquis as per above. (8) Deep vein thrombosis (DVT) of left lower extremity Current Visit: No Status: Acute Code(s): I82.402 - ACUTE EMBOLISM AND THOMBOS UNSP DEEP VEINS OF L LOW EXTREM SNOMED Code(s): 921092861 Comment: - LLE superficial femoral vein back in January, Seeing heme onc as outpatient. - duplex 06/23 did not show DVT on left - continue eliquis 5 mg BID Status and Disposition: medicine inpatient for sepsis 2/2 cellulitis. PT rec home or outpatient PT services.
[2019-06-25] MEDS ORDERED: Furosemide IV* 10 MG/ML 2 ML VIAL (20 MG) IV ONE (09:18)
[2019-06-25] MEDS ORDERED: Vancomycin(*) 2,000 MG in NS 0.9% 500 ML* 500 ML IVPB ONE (09:19)
[2019-06-25] MEDS ORDERED: INSULIN ASPART 1 UNIT SUBCUT ONE (09:20)
[2019-06-25] MEDS ORDERED: Potassium Chloride* LIQUID 20 MEQ/15 ML UDC PO ONE (10:00)
[2019-06-25] MEDS ORDERED: Vancomycin per Pharmacy* NOTE FOLLOW UP SCH (10:00)
[2019-06-25] MEDS: INSULIN DETEMIR 100 UNIT/ML SUBCUT SCH (21:57)
[2019-06-25] MEDS: VALSARTAN 40 MG PO SCH (22:05)
[2019-06-25] MEDS ORDERED: Vancomycin(*) 1,250 MG in NS 0.9% 250 ML* 250 ML IVPB SCH (23:00)
[2019-06-26] MEDS ORDERED: Acetaminophen TAB* 325 MG PO PRN (00:55)
[2019-06-26] MEDS: INSULIN ASPART 1 UNIT SUBCUT SCH ×7 (07:30→22:44)
[2019-06-26] MEDS: APIXABAN 5 MG PO SCH ×2 (09:07→22:39)
[2019-06-26] MEDS: DEXLANSOPRAZOLE 30 MG PO SCH (09:08)
[2019-06-26] MEDS: METOPROLOL SUCCINATE 25 MG PO SCH (09:09)
[2019-06-26] MEDS: SPIRONOLACTONE 25 MG PO SCH (09:09)
[2019-06-26 10:24] LABS: ABS Basophils 0.1 10^3/ul (0-0.2); ABS Eosinophils 0.6 10^3/ul (0-0.6); ABS Lymphocytes 2.2 10^3/ul (1.0-4.8); ABS Monocytes 0.9 10^3/ul (0-0.8); ABS Neutrophils 7.6 10^3/ul (1.5-7.7); Eosinophil % 5.6 %; Hematocrit 31 % (35-47); Hemoglobin 10.4 g/dL (12.0-16.0); Lymphocyte % 19.4 %; Mean Corpuscular HGB Conc 34 g/dL (31-36); Mean Corpuscular Hemoglobin 28 pg (27-31); Mean Corpuscular Volume 84 fL (80-97); Platelet Count 238 10^3/uL (150-450); Red Blood Count 3.68 10^6 /uL (3.70-4.87); Red Cell Distribution Width 15 % (10-15); White Blood Count 11.5 10^3/uL (3.5-10.8)
[2019-06-26 10:41] LABS: BUN/Creatinine Ratio 14.7 (8-20); Calcium 8.9 mg/dL (8.6-10.3); EGFR Non-African American 46.3 (>60); Magnesium 2.2 mg/dL (1.9-2.7); Potassium 3.7 mmol/L (3.5-5.0)
[2019-06-26] MEDS: Vancomycin(*) 1,000 MG in NS 0.9% 250 ML* 250 ML IVPB SCH ×2 (11:11→22:40)
--- NOTE | 2019-06-26 14:37 | PN ---
Subjective Date of Service: 06/26/19 Interval History: No significant events overnight. Patient believes her leg is a bit worse but denies fevers, chills. States she is not urinating as much as when she had a furosemide IV dose, but still having normal UOP. Denies SOB, abd pain, n/v/c/d, dysuria. Very concerned over testing MRSA positive by nasal swab. Afebrile > 24 hours on vanc. Objective Active Medications: Acetaminophen (Tylenol Tab*) 650 mg PO Q4H PRN PRN Reason: PAIN - MILD Al Hydrox/Mg Hydrox/Simethicone (Maalox Plus*) 30 ml PO Q6H PRN PRN Reason: INDIGESTION Apixaban (Eliquis*) 5 mg PO BID [facility] Last Admin: 06/26/19 09:07 Dose: 5 mg Dexlansoprazole (Dexilant (Nf)) 30 mg PO DAILY [facility] Last Admin: 06/26/19 09:08 Dose: 30 mg Dextrose (Dextrose 50% Vial 50 Ml*) 25 ml IV PUSH .FOR FS < 60 - SS PRN PRN Reason: FS < 60 Vancomycin HCl 1,000 mg/ (Sodium Chloride) 250 mls @ 166.667 mls/hr IVPB 1100, 2300 [facility] Last Admin: 06/26/19 11:11 Dose: 166.667 mls/hr Insulin Aspart (Novolog (Nf)) 0 units SUBCUT ACHS [facility]; Protocol Last Admin: 06/26/19 12:43 Dose: 1 unit Insulin Aspart (Novolog (Nf)) 3 units SUBCUT AC [facility] Last Admin: 06/26/19 12:44 Dose: 3 units Insulin Detemir (Levemir (Nf)) 15 unit SUBCUT BEDTIME [facility] Last Admin: 06/25/19 21:57 Dose: 15 unit Magnesium Hydroxide (Milk Of Magnesia Liq*) 30 ml PO Q4H PRN PRN Reason: CONSTIPATION Metoprolol Succinate (Toprol Xl Tab*) 25 mg PO DAILY [facility] Last Admin: 06/26/19 09:09 Dose: 25 mg Pharmacy Consult (Vancomycin Per Pharmacy*) 1 note FOLLOW UP .VANC PER PHARMACY [facility]; Protocol Pharmacy Profile Note (Vancomycin Trough Check) 1 note FOLLOW UP 1030 ONE Stop: 06/27/19 10:31 Senna (Senokot 8.6 Mg Tab*) 1 tab PO BID PRN PRN Reason: CONSTIPATION Spironolactone (Aldactone Tab*) 25 mg PO DAILY [facility] Last Admin: 06/26/19 09:09 Dose: 25 mg Temazepam (Restoril Cap*) 15 mg PO BEDTIME PRN PRN Reason: INSOMNIA Valsartan (Diovan Tab*) 40 mg PO BEDTIME [facility] Last Admin: 06/25/19 22:05 Dose: 40 mg Vital Signs - 8 hr 06/26/19 07:59 Temperature 97.9 F Pulse Rate 66 Respiratory 18 Rate Blood Pressure 150/50 (mmHg) O2 Sat by Pulse 98 Oximetry Oxygen Devices in Use Now: None Appearance: well appearing, NAD, alert and interactive Eyes: No Scleral Icterus Ears/Nose/Mouth/Throat: Clear Oropharnyx, Mucous Membranes Moist Neck: NL Appearance and Movements; NL JVP, Trachea Midline Respiratory: Symmetrical Chest Expansion and Respiratory Effort, Clear to Auscultation Cardiovascular: NL Sounds; No Murmurs; No JVD, RRR Abdominal: NL Sounds; No Tenderness; No Distention, No Hepatosplenomegaly Extremities: - - nonpitting edema in b/l LE, LLE with mild circumferential erythema up to marker line under knee, no purulence; RLE with scabbed ulcers; LLE warmer than RLE Neurological: Alert and Oriented x 3 Result Diagrams: 06/26/19 10:13 06/26/19 10:13 Additional Lab and Data: Laboratory Results - last 24 hr 06/24/19 06/24/19 06/24/19 04:51 16:58 21:21 WBC RBC Hgb Hct MCV MCH MCHC RDW Plt Count MPV Neut % (Auto) Lymph % (Auto) [place] % (Auto) Eos % (Auto) Baso % (Auto) Absolute Neuts (auto) Absolute Lymphs (auto) Absolute Monos (auto) Absolute Eos (auto) Absolute Basos (auto) Absolute Nucleated RBC Nucleated RBC % ESR 78 H Sodium Potassium Chloride Carbon Dioxide Anion Gap BUN Creatinine Est GFR ( Amer) Est GFR (Non-Af Amer) BUN/Creatinine Ratio Glucose POC Glucose (mg/dL) 144 H 219 H Calcium Magnesium C-Reactive Protein 06/25/19 06/25/19 06/25/19 05:34 05:34 07:40 WBC 15.8 H RBC 3.51 L Hgb 10.1 L Hct 30 L MCV 85 MCH 29 MCHC 34 RDW 15 Plt Count 208 MPV 9.4 Neut % (Auto) 79.5 Lymph % (Auto) 12.5 [place] % (Auto) 5.5 Eos % (Auto) 2.0 Baso % (Auto) 0.5 Absolute Neuts (auto) 12.6 H Absolute Lymphs (auto) 2.0 Absolute Monos (auto) 0.9 H Absolute Eos (auto) 0.3 Absolute Basos (auto) 0.1 Absolute Nucleated RBC 0.0 Nucleated RBC % 0.0 ESR Sodium 136 Potassium 3.4 L Chloride 102 Carbon Dioxide 24 Anion Gap 10 BUN 18 Creatinine 1.44 H Est GFR ( Amer) 43.7 Est GFR (Non-Af Amer) 36.1 BUN/Creatinine Ratio 12.5 Glucose 130 H POC Glucose (mg/dL) 133 H Calcium 8.8 Magnesium 1.9 C-Reactive Protein 253.11 H 06/25/19 11:57 WBC RBC Hgb Hct MCV MCH MCHC RDW Plt Count MPV Neut % (Auto) Lymph % (Auto) [place] % (Auto) Eos % (Auto) Baso % (Auto) Absolute Neuts (auto) Absolute Lymphs (auto) Absolute Monos (auto) Absolute Eos (auto) Absolute Basos (auto) Absolute Nucleated RBC Nucleated RBC % ESR Sodium Potassium Chloride Carbon Dioxide Anion Gap BUN Creatinine Est GFR ( Amer) Est GFR (Non-Af Amer) BUN/Creatinine Ratio Glucose POC Glucose (mg/dL) 172 H Calcium Magnesium C-Reactive Protein Microbiology and Other Data: Microbiology 06/24/19 04:15 Urine Urine Culture - Final 06/23/19 19:25 Blood Venous Aerobic Blood Culture - Preliminary No Growth Day 1 06/23/19 19:25 Blood Venous Anaerobic Blood Culture - Preliminary No Growth Day 1 06/23/19 19:25 Blood Venous Aerobic Blood Culture - Preliminary No Growth Day 1 06/23/19 19:25 Blood Venous Anaerobic Blood Culture - Preliminary No Growth Day 1 Assess/Plan/Problems-Billing Assessment: 69W with chronic lymphadema, DVT on AC, HFpEF, CKD III, obesity, IDDM p/w sepsis secondary to LLE cellulitis. Also with signs of volume overload. - Patient Problems (1) Cellulitis Comment: Hx of suspected Strep cellulitis in January. Now recurrent cellulitis. Has been following with ID Dr. Rubin as outpatient. - changed cefazolin (06/23 - 06/25) to vanc IV (06/25- ) given no improvement - pt does not want retrial of clinda given generalized rash last time (though of note she did complete the course) (2) Diastolic CHF Comment: Pending records from Dr. Fitch for recent outpatient TTE. Prior was February 2015 (available through [facility] records), which showed grade 2 diastolic dysfunction, EF 55-60%, mild MVR. - furosemide 20mg IV daily, currently good response - daily weights; strict Is&Os - continue metoprolol and spironolactone - switch home torsemide 20mg qod to lasix as above (3) IDDM (insulin dependent diabetes mellitus) Comment: Home dose was 26U AM, 24U PM but was getting frequent symptomatic hypogylcemia to 48 five times in last 2 weeks. - cont insulin detemir 15u daily - add lispro qac with continued additional SSI coverage - POC glucose qachs (4) Deep vein thrombosis (DVT) of left lower extremity Comment: LLE superficial femoral vein back in January, Seeing heme onc as outpatient. Duplex 06/23 did not show DVT on left. - continue eliquis 5 mg BID (5) Lymphedema Comment: She is still pending [facility] [facility] for over a year, considering going to [place]. Has also been seen by Conchita Vallecillo in [place] but was not tolerant of compression systems offered at that time (felt like pushed fluid into abdomen). - continue elevation - diurese as above, as HF may be component of LE edema (6) DVT prophylaxis Comment: - Continue eliquis as per above. (7) Full code status Comment: Full code Status and Disposition: medicine inpatient for sepsis 2/2 cellulitis. PT rec home or outpatient PT services.
[2019-06-26] MEDS: VALSARTAN 40 MG PO SCH (22:39)
[2019-06-26] MEDS: INSULIN DETEMIR 100 UNIT/ML SUBCUT SCH (22:41)
[2019-06-27] MEDS: Furosemide IV* 10 MG/ML 2 ML VIAL (20 MG) IV SCH (06:12)
[2019-06-27] MEDS: INSULIN ASPART 1 UNIT SUBCUT SCH ×2 (09:01→09:13)
[2019-06-27] MEDS: APIXABAN 5 MG PO SCH ×2 (09:02→20:41)
[2019-06-27] MEDS: DEXLANSOPRAZOLE 30 MG PO SCH (09:02)
[2019-06-27] MEDS: METOPROLOL SUCCINATE 25 MG PO SCH (09:03)
[2019-06-27] MEDS: SPIRONOLACTONE 25 MG PO SCH (09:04)
[2019-06-27] MEDS ORDERED: Dextrose 50% VIAL 50 ml IV PUSH PRN (09:16)
[2019-06-27] MEDS ORDERED: Vancomycin Trough Check NOTE FOLLOW UP ONE (10:30)
--- NOTE | 2019-06-27 10:45 | PN ---
Subjective Date of Service: 06/27/19 Interval History: No acute overnight events. Pt reports legs are significantly better. She still has pain over the back of her lower Left leg, but the swelling and erythema have significantly improved. She was walking around the room more and did laps with PT. No recurrence of fever. CRP decreased 253 -> 89. Leukocytosis resolved. Objective Active Medications: Acetaminophen (Tylenol Tab*) 650 mg PO Q4H PRN PRN Reason: PAIN - MILD Al Hydrox/Mg Hydrox/Simethicone (Maalox Plus*) 30 ml PO Q6H PRN PRN Reason: INDIGESTION Apixaban (Eliquis*) 5 mg PO BID [facility] Last Admin: 06/27/19 09:02 Dose: 5 mg Dexlansoprazole (Dexilant (Nf)) 30 mg PO DAILY [facility] Last Admin: 06/27/19 09:02 Dose: 30 mg Dextrose (Dextrose 50% Vial 50 Ml*) 25 ml IV PUSH .FOR FS < 60 - SS PRN PRN Reason: FS < 60 Furosemide (Lasix Iv*) 20 mg IV 0600 [facility] Last Admin: 06/27/19 06:12 Dose: 20 mg Vancomycin HCl 1,000 mg/ (Sodium Chloride) 250 mls @ 166.667 mls/hr IVPB 1100, 2300 [facility] Last Admin: 06/26/19 22:40 Dose: 166.667 mls/hr Insulin Detemir (Levemir (Nf)) 15 unit SUBCUT BEDTIME [facility] Last Admin: 06/26/19 22:41 Dose: 15 unit Insulin Human Lispro (Humalog*) 0 units SUBCUT AC [facility]; Protocol Magnesium Hydroxide (Milk Of Magnesia Liq*) 30 ml PO Q4H PRN PRN Reason: CONSTIPATION Metoprolol Succinate (Toprol Xl Tab*) 25 mg PO DAILY [facility] Last Admin: 06/27/19 09:03 Dose: 25 mg Pharmacy Consult (Vancomycin Per Pharmacy*) 1 note FOLLOW UP .VANC PER PHARMACY [facility]; Protocol Senna (Senokot 8.6 Mg Tab*) 1 tab PO BID PRN PRN Reason: CONSTIPATION Spironolactone (Aldactone Tab*) 25 mg PO DAILY [facility] Last Admin: 06/27/19 09:04 Dose: 25 mg Temazepam (Restoril Cap*) 15 mg PO BEDTIME PRN PRN Reason: INSOMNIA Valsartan (Diovan Tab*) 40 mg PO BEDTIME [facility] Last Admin: 06/26/19 22:39 Dose: 40 mg Vital Signs - 8 hr 06/27/19 06/27/19 04:00 07:56 Temperature 97.9 F 98.1 F Pulse Rate 64 67 Respiratory 16 18 Rate Blood Pressure 137/72 132/52 (mmHg) O2 Sat by Pulse 100 98 Oximetry Oxygen Devices in Use Now: None Result Diagrams: 06/27/19 10:48 06/27/19 10:48 Additional Lab and Data: Laboratory Results - last 24 hr 06/24/19 06/24/19 06/24/19 04:51 16:58 21:21 WBC RBC Hgb Hct MCV MCH MCHC RDW Plt Count MPV Neut % (Auto) Lymph % (Auto) [place] % (Auto) Eos % (Auto) Baso % (Auto) Absolute Neuts (auto) Absolute Lymphs (auto) Absolute Monos (auto) Absolute Eos (auto) Absolute Basos (auto) Absolute Nucleated RBC Nucleated RBC % ESR 78 H Sodium Potassium Chloride Carbon Dioxide Anion Gap BUN Creatinine Est GFR ( Amer) Est GFR (Non-Af Amer) BUN/Creatinine Ratio Glucose POC Glucose (mg/dL) 144 H 219 H Calcium Magnesium C-Reactive Protein 06/25/19 06/25/19 06/25/19 05:34 05:34 07:40 WBC 15.8 H RBC 3.51 L Hgb 10.1 L Hct 30 L MCV 85 MCH 29 MCHC 34 RDW 15 Plt Count 208 MPV 9.4 Neut % (Auto) 79.5 Lymph % (Auto) 12.5 [place] % (Auto) 5.5 Eos % (Auto) 2.0 Baso % (Auto) 0.5 Absolute Neuts (auto) 12.6 H Absolute Lymphs (auto) 2.0 Absolute Monos (auto) 0.9 H Absolute Eos (auto) 0.3 Absolute Basos (auto) 0.1 Absolute Nucleated RBC 0.0 Nucleated RBC % 0.0 ESR Sodium 136 Potassium 3.4 L Chloride 102 Carbon Dioxide 24 Anion Gap 10 BUN 18 Creatinine 1.44 H Est GFR ( Amer) 43.7 Est GFR (Non-Af Amer) 36.1 BUN/Creatinine Ratio 12.5 Glucose 130 H POC Glucose (mg/dL) 133 H Calcium 8.8 Magnesium 1.9 C-Reactive Protein 253.11 H 06/25/19 11:57 WBC RBC Hgb Hct MCV MCH MCHC RDW Plt Count MPV Neut % (Auto) Lymph % (Auto) [place] % (Auto) Eos % (Auto) Baso % (Auto) Absolute Neuts (auto) Absolute Lymphs (auto) Absolute Monos (auto) Absolute Eos (auto) Absolute Basos (auto) Absolute Nucleated RBC Nucleated RBC % ESR Sodium Potassium Chloride Carbon Dioxide Anion Gap BUN Creatinine Est GFR ( Amer) Est GFR (Non-Af Amer) BUN/Creatinine Ratio Glucose POC Glucose (mg/dL) 172 H Calcium Magnesium C-Reactive Protein Microbiology and Other Data: Microbiology 06/24/19 04:15 Urine Urine Culture - Final 06/23/19 19:25 Blood Venous Aerobic Blood Culture - Preliminary No Growth Day 1 06/23/19 19:25 Blood Venous Anaerobic Blood Culture - Preliminary No Growth Day 1 06/23/19 19:25 Blood Venous Aerobic Blood Culture - Preliminary No Growth Day 1 06/23/19 19:25 Blood Venous Anaerobic Blood Culture - Preliminary No Growth Day 1 Assess/Plan/Problems-Billing Assessment: 69W with chronic lymphadema, DVT on AC, HFpEF, CKD III, obesity, and IDDM, p/w sepsis secondary to LLE cellulitis. Also with signs of volume overload. - Patient Problems (1) Cellulitis Comment: Hx of suspected Strep cellulitis in January. Now recurrent cellulitis. Has been following with ID Dr. Rubin as outpatient. - changed cefazolin (06/23 - 06/25) to vanc IV (06/25- ) given no improvement - pt does not want retrial of clinda given generalized rash last time (though of note she did complete the course) (2) Diastolic CHF Comment: Pending records from Dr. Fitch for recent outpatient TTE. Prior was February 2015 (available through [facility] records), which showed grade 2 diastolic dysfunction, EF 55-60%, mild MVR. - furosemide 20mg IV daily, currently good response - daily weights; strict Is&Os - continue metoprolol and spironolactone - switch home torsemide 20mg qod to lasix as above (3) IDDM (insulin dependent diabetes mellitus) Comment: Home dose was 26U AM, 24U PM, with short-acting 05/04/14 tid, but was getting frequent symptomatic hypogylcemia to 48 five times in last 2 weeks. - cont insulin detemir 15u daily - add lispro sliding scale - POC glucose qAC (4) Deep vein thrombosis (DVT) of left lower extremity Comment: LLE superficial femoral vein back in January, Seeing heme onc as outpatient. Duplex 06/23 did not show DVT on left. - continue eliquis 5 mg BID (5) Lymphedema Comment: She is still pending [place] [facility] for over a year, considering going to [place]. Has also been seen by Conchita Vallecillo in [place] but was not tolerant of compression systems offered at that time (felt like pushed fluid into abdomen). - continue elevation - diurese as above, as HF may be component of LE edema (6) DVT prophylaxis Comment: - Continue eliquis as per above. (7) Full code status Comment: Full code Status and Disposition: medicine inpatient for sepsis 2/2 cellulitis. PT rec home or outpatient PT services.
[2019-06-27 11:03] LABS: ABS Basophils 0.1 10^3/ul (0-0.2); ABS Eosinophils 0.6 10^3/ul (0-0.6); ABS Lymphocytes 2.2 10^3/ul (1.0-4.8); ABS Monocytes 0.7 10^3/ul (0-0.8); ABS Neutrophils 6.8 10^3/ul (1.5-7.7); Eosinophil % 5.3 %; Hematocrit 31 % (35-47); Hemoglobin 10.6 g/dL (12.0-16.0); Lymphocyte % 21.4 %; Mean Corpuscular HGB Conc 34 g/dL (31-36); Mean Corpuscular Hemoglobin 28 pg (27-31); Mean Corpuscular Volume 83 fL (80-97); Mean Platelet Volume 9.2 fL (7.4-10.4); Platelet Count 269 10^3/uL (150-450); Red Blood Count 3.77 10^6 /uL (3.70-4.87); Red Cell Distribution Width 14 % (10-15); White Blood Count 10.4 10^3/uL (3.5-10.8)
[2019-06-27 11:28] LABS: BUN/Creatinine Ratio 15.5 (8-20); C Reactive Protein 88.7 mg/L (<8.01); Calcium 8.9 mg/dL (8.6-10.3); EGFR African American 59.6 (>60); EGFR Non-African American 49.2 (>60); Potassium 3.8 mmol/L (3.5-5.0)
[2019-06-27] MEDS ORDERED: Insulin ASPART (NF) 100 UNIT/ML VIAL SUBCUT SCH ×2 (11:30→14:30)
[2019-06-27] MEDS ORDERED: Insulin LISPRO* 1 UNITS UNIT SUBCUT SCH ×2 (11:30→16:30)
[2019-06-27] MEDS ORDERED: hydrOXYzine HCL TAB* 25 MG PO PRN (11:49)
[2019-06-27] MEDS ORDERED: Vancomycin(*) 1,000 MG in NS 0.9% 250 ML* 250 ML IVPB SCH (13:00)
[2019-06-27] MEDS: Vancomycin(*) 1,000 MG in NS 0.9% 250 ML* 250 ML IVPB SCH (14:37)
[2019-06-27] MEDS: PTO:Insulin ASPART (NF) 100 UNIT/ML VIAL SUBCUT SCH (14:44)
--- NOTE | 2019-06-27 14:53 | CONS ---
CONSULTATION REPORT: DATE OF CONSULT: 06/27/19 PRIMARY CARE PROVIDER: Dr. Robert Lira. PROVIDER REQUESTING CONSULTATION: Dr. Jayna Galaviz. CONSULTING SERVICE: Infectious Disease. PROVIDER: Behzad Harding NP ATTENDING PROVIDER: Dr. Mathew Rubin.* (DICTATED BY BEHZAD HARDING NP) REASON FOR CONSULTATION: Recurrent cellulitis. IMPRESSION: 1. Left lower extremity cellulitis. Presented to the ED with fever and leukocytosis. Her leukocytosis has resolved during her hospitalization. She is currently afebrile. Her CRP was elevated around 250 on admission and has improved down to 88. She was initially on cefazolin, then transitioned to vancomycin when she was felt to have not been improving on the cefazolin. She is receiving Lasix and the edema is resolving. Urine culture with no growth. Denies any respiratory symptoms. 2. Bilateral lower extremity lymphedema. Improving lower extremity edema since receiving increased diuretics while in the hospital. 3. History of left lower extremity deep vein thrombosis. Diagnosed in January and continues to be on Eliquis. 4. Diabetes mellitus type 2. 5. Diastolic congestive heart failure. PLAN/RECOMMENDATIONS: Recommend continuing vancomycin for today, and then switching to Doxycycline 100mg PO BID in the AM to complete a 10-14 day course. We will continue to follow along. HISTORY OF PRESENT ILLNESS: Ms. Childs is a 69-year-old female with past medical history significant for bilateral lower extremity lymphedema, left lower extremity DVT diagnosed in January, hypertension, GERD, Mcelroy's esophagus, diabetes mellitus type 2, chronic kidney disease stage 3 and diastolic congestive heart failure, who has had bilateral lower extremity lymphedema with superficial wounds since January when she was treated for cellulitis and hospitalized at that time. She is followed closely by Infectious Disease outpatient. She had not been on any antibiotics since April, when she took a few days of doxycycline. She was last seen in the office on 06/16/19 at which time she had slight erythema to both legs and superficial wounds with some weeping edema. There was no warmth. She was not having fevers and otherwise feeling well, it was not felt that she had cellulitis at that time. She was encouraged to use compression on her legs to help with edema management and to keep her legs elevated and to wash with soap and water. She was hesitant to use dressings due to history of having worsening of the skin after wearing dressings in the past. She had a prescription for Doxycycline on hand to start if her legs worsened. She states that she was doing well until on Wednesday when she developed a fever of 104 degrees Fahrenheit at home. She called the ID office who recommended that she go to the emergency room for evaluation. She did not want to go to the emergency room, so she first presented to urgent care who then transferred her to the emergency room. In the emergency room, she was noted to have fever of 101.7, and leukocytosis with a white blood cell count of 19.1. She had a UA significant for 1+ blood, negative nitrites, 3+ leukocyte esterase, wbc's 3+, rbc's 1+, squamous epithelial cells present, bacteria 1+. She had noticed increased swelling, erythema to especially the left leg. She was referred to the hospitalist service and admitted for sepsis in the setting of a left lower extremity cellulitis. She initially was placed on cefazolin, this was then switched to vancomycin when she was not having significant improvement. After starting the vancomycin, the erythema has improved. Additionally, she has had significant improvement in the edema, as has been receiving IV furosemide. Her leukocytosis has resolved. She has been afebrile. Currently denies fevers, chills, nausea, vomiting, diarrhea, urinary symptoms. She feels that the edema in her legs is greatly improved in addition to the erythema since she presented to the hospital. She continues to have some pain in the left lower leg, nut feels like overall this is improving. PAST MEDICAL HISTORY: 1. Bilateral lower extremity lymphedema. 2. Left lower extremity DVT diagnosed in January 2019. 3. Hypertension. 4. GERD. 5. Mcelroy esophagus. 6. Diabetes mellitus type 2. 7. Chronic kidney disease stage 3. 8. Diastolic congestive heart failure. PAST SURGICAL HISTORY: 1. Status post hysterectomy. 2. Status post spinal fusion. 3. Status post bilateral breast reduction. MEDICATIONS: Home medications include: 1. Torsemide 20 mg by mouth every other day. 2. Detemir insulin 24 units subcutaneous in the evening and 26 units subcutaneous in the morning. 3. Eliquis 5 mg by mouth twice daily. 4. Acetaminophen 650 mg by mouth every 4 hours as needed for fever or pain. 5. NovoLog insulin 2 to 11 units sliding scale with meals and at bedtime. 6. Dexilant 30 mg by mouth daily. 7. Metoprolol succinate 25 mg by mouth daily. 8. Valsartan 40 mg by mouth daily. 9. Spironolactone 25 mg by mouth daily. 10. Fish oil 1000 mg by mouth daily. 11. Multivitamin 1 tablet by mouth daily. Hospital medications: 1. Acetaminophen 650 mg by mouth every 4 hours as needed for mild pain. 2. Maalox 30 mL by mouth every 6 hours as needed for indigestion. 3. Eliquis 5 mg by mouth twice daily. 4. Dexilant 30 mg by mouth daily. 5. Dextrose 25 mL intravenously as needed for glucose less than 60. 6. Furosemide 20 mg IV daily. 7. Hydroxyzine 25 mg by mouth every 12 hours as needed for itching. 8. Levemir insulin 15 units subcutaneous at bedtime. 9. Humalog insulin sliding scale subcutaneous with meals. 10. Milk of magnesia 30 mL by mouth every 4 hours as needed for constipation. 11. Metoprolol succinate 25 mg by mouth daily. 12. Senna 1 tablet by mouth twice daily as needed for constipation. 13. Spironolactone 25 mg by mouth daily. 14. Restoril 15 mg by mouth daily as needed for sleep. 15. Valsartan 40 mg by mouth daily. 16. Vancomycin 1000 mg IV every 12 hours. ALLERGIES: CLINDAMYCIN caused a rash and itching, IBUPROFEN, METFORMIN, NSAID and NARCOTICS. FAMILY HISTORY: Denies family history of recurrent or resistant infections. Father with a history of coronary artery disease. No family history of diabetes. Mother with a history of basal cell carcinoma and brother with a history of a fibrosarcoma. SOCIAL HISTORY: Denies alcohol, tobacco or recreational drug use. REVIEW OF SYSTEMS: I performed a 10-point review of systems. All the pertinent positives and negatives are mentioned in the history of present illness. The remaining review of systems are negative. PHYSICAL EXAM: Vital Signs: Temperature 98.1, heart rate 67, respiratory rate 18, O2 sat 98% on room air, blood pressure 132/52. General Appearance: Alert, appears to be in no acute distress, sitting up in bed. Head: Normocephalic, atraumatic. EENT: Extraocular movements are intact. No subconjunctival hemorrhage. Moist mucous membranes. Neck: Supple. No lymphadenopathy noted. Neurological: Alert and oriented. Cranial nerves II through XII are grossly intact. She moves all extremities. Cardiovascular: Regular rate and rhythm. S1, S2 present. No murmurs, rubs, or gallops heard. Respiratory: Lungs are clear to auscultation bilateral. No accessory muscle use. Abdomen: Bowel sounds present x4. Abdomen is soft, nontender, nondistended, obese. Extremities: DP pulses are 2+ and symmetric. Nonpitting bilateral lower extremity edema. Musculoskeletal: No clubbing or cyanosis noted. She exhibits good strength in all extremities. Psychological: Calm and cooperative. Skin: She has erythema to the right lower extremity, this has receded within the previously drawn lines. There is still redness to the posterior leg below the knee down. Additionally, there is some dry crusty skin. No open lesions. The right lower extremity has slight erythema on the anterior fay with some healed crusted areas. No drainage. Her arms and lower back have healing and scabbed lesions. DIAGNOSTIC STUDIES/LAB DATA: Sodium 139, potassium 3.8, chloride 104, CO2 of 25 , BUN 17, creatinine 1.10, glucose 175, CRP 88.70. WBC 10.4, hemoglobin 10.6, hematocrit 31, platelet count 269. Blood cultures with no growth to date. Urine culture with no significant growth. Please see impression and recommendations outlined above, recommendations have been discussed with Dr. Jayna Galaviz. Thank you for asking us to see Ms. Childs in consultation. The case has been reviewed with the attending, Dr. Mathew Rubin, who agrees with the plan of care. Reviewed by STEPHY PANG 06/29/19 [id number]/[facility] #: [id number] OLIVA
[2019-06-27] MEDS ORDERED: Insulin ASPART (NF) 100 UNIT/ML VIAL SUBCUT ONE (18:00)
[2019-06-27] MEDS: VALSARTAN 40 MG PO SCH (20:41)
[2019-06-27] MEDS: INSULIN DETEMIR 100 UNIT/ML SUBCUT SCH (20:56)
[2019-06-28] MEDS ORDERED: Vancomycin(*) 750 MG in NS 0.9% 250 ML* 250 ML IVPB SCH (01:00)
[2019-06-28] MEDS: Furosemide IV* 10 MG/ML 2 ML VIAL (20 MG) IV SCH (06:03)
[2019-06-28] MEDS: PTO:Insulin ASPART (NF) 100 UNIT/ML VIAL SUBCUT SCH ×3 (08:31→17:46)
[2019-06-28] MEDS ORDERED: DOXYcycline CAP(*) 100 MG PO SCH (09:00)
[2019-06-28] MEDS ORDERED: Fluconazole 150 MG TAB PO ONE (09:05)
[2019-06-28] MEDS: SPIRONOLACTONE 25 MG PO SCH ×2 (09:30→11:44)
[2019-06-28] MEDS: APIXABAN 5 MG PO SCH ×2 (09:30→21:13)
[2019-06-28] MEDS: METOPROLOL SUCCINATE 25 MG PO SCH (09:30)
--- NOTE | 2019-06-28 09:42 | PN ---
Progress Note - Progress Note Date of Service: 06/28/19 SOAP: Subjective: CC: Left lower leg cellulitis HPI: Ms. Childs is a 69 yo female with PMH significant for bilateral LE lymphedema, left LE DVT, HTN, GERD, Mcelroy's espophagus, DM2, CKD stage 3, D CHF; who presented to the hospital with left LE erythema and edema. Denies fever, chills , nausea, vomiting, or diarrhea. She feels that the erythema and edema in the legs is improving since her admission. Reports vaginal burning and dysuria. Reports constipation, has not moved her bowels in a few days. Objective: Vital Signs - 8 hr 06/28/19 06/28/19 03:31 07:48 Temperature 98 F 97.4 F Pulse Rate 64 62 Respiratory 20 20 Rate Blood Pressure 152/62 144/62 (mmHg) O2 Sat by Pulse 97 97 Oximetry Physical: General: NAD, sitting up in bed Neurological: Alert and Oriented x 4 HEENT: Moist MM, no thrush Cardiovascular: Heart rate regular. Bilateral LE edema. Respiratory: Lung sounds clear bilateral Abdominal: Bowel sounds present; ABD soft, non tender and non distended Skin: No rash. Slight erythema to the right anterior fay and left lower leg ( receding from markings), there are scabbed areas to the anterior shins and the posterior left leg. Laboratory Results - last 24 hr 06/27/19 06/27/19 06/27/19 10:48 10:48 10:48 WBC 10.4 RBC 3.77 Hgb 10.6 L Hct 31 L MCV 83 MCH 28 MCHC 34 RDW 14 Plt Count 269 MPV 9.2 Neut % (Auto) 64.9 Lymph % (Auto) 21.4 [place] % (Auto) 7.1 Eos % (Auto) 5.3 Baso % (Auto) 1.3 Absolute Neuts (auto) 6.8 Absolute Lymphs (auto) 2.2 Absolute Monos (auto) 0.7 Absolute Eos (auto) 0.6 Absolute Basos (auto) 0.1 Absolute Nucleated RBC 0.0 Nucleated RBC % 0.0 Sodium 139 Potassium 3.8 Chloride 104 Carbon Dioxide 25 Anion Gap 10 BUN 17 Creatinine 1.10 H Est GFR ( Amer) 59.6 Est GFR (Non-Af Amer) 49.2 BUN/Creatinine Ratio 15.5 Glucose 175 H POC Glucose (mg/dL) Calcium 8.9 Magnesium 2.0 C-Reactive Protein 88.70 H Vancomycin Trough 16.9 Microbiology 06/23/19 19:25 Aerobic Blood Culture - Preliminary Blood Venous No Growth Day 4 Anaerobic Blood Culture - Preliminary No Growth Day 4 06/23/19 19:25 Aerobic Blood Culture - Preliminary Blood Venous No Growth Day 4 Anaerobic Blood Culture - Preliminary No Growth Day 4 06/26/19 02:30 Nasal Screen MRSA (PCR) - Final Nasal Mrsa Detected 06/24/19 04:15 Urine Culture - Final Urine Assessment: 1. Left lower leg cellulitis. Afebrile and no leukocytosis. Blood cultures with no growth. CRP is trending down. Improving erythema and edema. Continues to have pain in the upper left calf. Venous doppler on admission with no signs of DVT. 2. Bilateral LE lymphedema. 3. History of left LE DVT. Diagnosed in January 2019. 4. DM2. 5. Diastolic CHF. Receiving IV lasix here. 6. Obesity. BMI 38.5. Plan: Continue Doxycycline to complete a 14 day course of ABX. Day 514 of ABX. Followup with ID outpatient on 07/27/19 at 1130am. She will call the office prior if she has any concerns. 25 minutes floor time > 50 % spent with the patient discussing symptoms, treatment recommendations, and when to call the office for concerns of infection or ABX side effects.
[2019-06-28] MEDS ORDERED: Docusate CAP* 100 MG PO PRN (11:27)
[2019-06-28] MEDS: DEXLANSOPRAZOLE 30 MG PO SCH (11:34)
[2019-06-28] MEDS: DOXYCYCLINE 100 MG PO SCH ×2 (11:44→21:14)
--- NOTE | 2019-06-28 13:05 | PN ---
Subjective Date of Service: 06/28/19 Interval History: No acute events overnight. Pt expresses significant dismay that she received a dose of vancomycin overnight, and also that she was written for doxycycline this morning. Again explained how we switch from IV to oral medications, and that the plan, as we discussed yesterday, was to switch to PO. Patient expresses understanding, but that she is concerned because one time her cellulitis worsened after switching to PO. Reports significant improvement in LE swelling and redness. Also improvement in pain. No fevers or chills. Is having some vulvovaginal itching, unsure if dysuria, would like to be tested for UTI. Objective Active Medications: Acetaminophen (Tylenol Tab*) 650 mg PO Q4H PRN PRN Reason: PAIN - MILD Al Hydrox/Mg Hydrox/Simethicone (Maalox Plus*) 30 ml PO Q6H PRN PRN Reason: INDIGESTION Apixaban (Eliquis*) 5 mg PO BID [facility] Last Admin: 06/28/19 09:30 Dose: 5 mg Dexlansoprazole (Dexilant (Nf)) 30 mg PO DAILY [facility] Last Admin: 06/28/19 11:34 Dose: Not Given Dextrose (Dextrose 50% Vial 50 Ml*) 25 ml IV PUSH .FOR FS < 60 - SS PRN PRN Reason: FS < 60 Docusate Sodium (Colace Cap*) 100 mg PO BID PRN PRN Reason: CONSTIPATION Doxycycline Monohydrate (Doxycycline Monohydrate) 100 mg PO BID [facility] Last Admin: 06/28/19 11:44 Dose: 100 mg Hydroxyzine HCl (Atarax Tab*) 25 mg PO Q12H PRN PRN Reason: itching Insulin Aspart (Novolog (Nf)) 0 unit SUBCUT AC [facility]; Protocol Last Admin: 06/28/19 13:20 Dose: 3 units Insulin Detemir (Levemir (Nf)) 15 unit SUBCUT BEDTIME [facility] Last Admin: 06/27/19 20:56 Dose: 15 unit Magnesium Hydroxide (Milk Of Magnesia Liq*) 30 ml PO Q4H PRN PRN Reason: CONSTIPATION Metoprolol Succinate (Toprol Xl Tab*) 25 mg PO DAILY [facility] Last Admin: 06/28/19 09:30 Dose: 25 mg Senna (Senokot 8.6 Mg Tab*) 1 tab PO BID PRN PRN Reason: CONSTIPATION Last Admin: 06/27/19 20:41 Dose: 1 tab Spironolactone (Aldactone Tab*) 25 mg PO DAILY [facility] Last Admin: 06/28/19 11:44 Dose: 25 mg Temazepam (Restoril Cap*) 15 mg PO BEDTIME PRN PRN Reason: INSOMNIA Torsemide (Torsemide) 20 mg PO DAILY [facility] Valsartan (Diovan Tab*) 40 mg PO BEDTIME [facility] Last Admin: 06/27/19 20:41 Dose: 40 mg Vital Signs - 8 hr 06/28/19 06/28/19 07:48 11:21 Temperature 97.4 F 97.2 F Pulse Rate 62 71 Respiratory 20 18 Rate Blood Pressure 144/62 130/70 (mmHg) O2 Sat by Pulse 97 100 Oximetry Oxygen Devices in Use Now: None Appearance: well appearing woman sitting up in bed Skin: - - LLE with eryethema over posterior calf below marker line, improving, 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, less 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, no open wounds, scabbed areas healing; RLE with small area of erythema anteriorly with healing scabs Neurological: Alert and Oriented x 3 Result Diagrams: 06/27/19 10:48 06/27/19 10:48 Additional Lab and Data: Laboratory Results - last 24 hr 06/24/19 06/24/19 06/24/19 04:51 16:58 21:21 WBC RBC Hgb Hct MCV MCH MCHC RDW Plt Count MPV Neut % (Auto) Lymph % (Auto) [place] % (Auto) Eos % (Auto) Baso % (Auto) Absolute Neuts (auto) Absolute Lymphs (auto) Absolute Monos (auto) Absolute Eos (auto) Absolute Basos (auto) Absolute Nucleated RBC Nucleated RBC % ESR 78 H Sodium Potassium Chloride Carbon Dioxide Anion Gap BUN Creatinine Est GFR ( Amer) Est GFR (Non-Af Amer) BUN/Creatinine Ratio Glucose POC Glucose (mg/dL) 144 H 219 H Calcium Magnesium C-Reactive Protein 06/25/19 06/25/19 06/25/19 05:34 05:34 07:40 WBC 15.8 H RBC 3.51 L Hgb 10.1 L Hct 30 L MCV 85 MCH 29 MCHC 34 RDW 15 Plt Count 208 MPV 9.4 Neut % (Auto) 79.5 Lymph % (Auto) 12.5 [place] % (Auto) 5.5 Eos % (Auto) 2.0 Baso % (Auto) 0.5 Absolute Neuts (auto) 12.6 H Absolute Lymphs (auto) 2.0 Absolute Monos (auto) 0.9 H Absolute Eos (auto) 0.3 Absolute Basos (auto) 0.1 Absolute Nucleated RBC 0.0 Nucleated RBC % 0.0 ESR Sodium 136 Potassium 3.4 L Chloride 102 Carbon Dioxide 24 Anion Gap 10 BUN 18 Creatinine 1.44 H Est GFR ( Amer) 43.7 Est GFR (Non-Af Amer) 36.1 BUN/Creatinine Ratio 12.5 Glucose 130 H POC Glucose (mg/dL) 133 H Calcium 8.8 Magnesium 1.9 C-Reactive Protein 253.11 H 06/25/19 11:57 WBC RBC Hgb Hct MCV MCH MCHC RDW Plt Count MPV Neut % (Auto) Lymph % (Auto) [place] % (Auto) Eos % (Auto) Baso % (Auto) Absolute Neuts (auto) Absolute Lymphs (auto) Absolute Monos (auto) Absolute Eos (auto) Absolute Basos (auto) Absolute Nucleated RBC Nucleated RBC % ESR Sodium Potassium Chloride Carbon Dioxide Anion Gap BUN Creatinine Est GFR ( Amer) Est GFR (Non-Af Amer) BUN/Creatinine Ratio Glucose POC Glucose (mg/dL) 172 H Calcium Magnesium C-Reactive Protein Microbiology and Other Data: Microbiology 06/24/19 04:15 Urine Urine Culture - Final 06/23/19 19:25 Blood Venous Aerobic Blood Culture - Preliminary No Growth Day 1 06/23/19 19:25 Blood Venous Anaerobic Blood Culture - Preliminary No Growth Day 1 06/23/19 19:25 Blood Venous Aerobic Blood Culture - Preliminary No Growth Day 1 06/23/19 19:25 Blood Venous Anaerobic Blood Culture - Preliminary No Growth Day 1 Assess/Plan/Problems-Billing Assessment: 69W with chronic lymphadema, DVT on AC, HFpEF, CKD III, obesity, and IDDM, p/w sepsis secondary to LLE cellulitis. Also with signs of volume overload. - Patient Problems (1) Cellulitis Comment: Hx of suspected Strep cellulitis in January. Now recurrent cellulitis. Has been following with ID Dr. Rubin as outpatient. - changed cefazolin (06/23 - 06/25) to vanc IV (06/25- 06/28) with sig improvement ; now doxy PO (06/28 - 07/08) - pt does not want retrial of clinda given generalized rash last time (though of note she did complete the course) - atarax prn itching (2) Diastolic CHF Comment: Pending records from Dr. Fitch for recent outpatient TTE. Prior was February 2015 (available through [facility] records), which showed grade 2 diastolic dysfunction, EF 55-60%, mild MVR. - restart home torsemide 20mg PO but make daily - daily weights; strict Is&Os - continue metoprolol and spironolactone (3) IDDM (insulin dependent diabetes mellitus) Comment: Home dose was 26U AM, 24U PM, with short-acting 05/04/14 tid, but was getting frequent symptomatic hypogylcemia to 48 five times in last 2 weeks. Reports there is "nothing to eat" on her meal trays, so insulin requirement significantly lower here. - cont insulin detemir 15u daily - add lispro sliding scale - POC glucose qAC (4) Deep vein thrombosis (DVT) of left lower extremity Comment: LLE superficial femoral vein back in January, Seeing heme onc as outpatient. Duplex 06/23 did not show DVT on left. - continue eliquis 5 mg BID (5) Lymphedema Comment: She is still pending [place] [facility] for over a year, considering going to [place]. Has also been seen by Conchita Vallecillo in [place] but was not tolerant of compression systems offered at that time (felt like pushed fluid into abdomen). - continue elevation - diurese as above, as HF may be component of LE edema (6) Hypertension Comment: - continue home metoprolol suc 25mg daily, valsartan 40mg, spironolactone 25mg (7) Yeast infection Comment: fluc x 1 (8) DVT prophylaxis Comment: - Continue eliquis as per above. (9) Full code status Comment: Full code Status and Disposition: Possible DC tomorrow if tolerates PO abx.
[2019-06-28] MEDS: VALSARTAN 40 MG PO SCH (21:16)
[2019-06-28] MEDS: INSULIN DETEMIR 100 UNIT/ML SUBCUT SCH (21:37)
[2019-06-29 06:10] LABS: Hematocrit 33 % (35-47); Mean Corpuscular HGB Conc 34 g/dL (31-36); Mean Corpuscular Hemoglobin 28 pg (27-31); Mean Corpuscular Volume 84 fL (80-97); Mean Platelet Volume 8.7 fL (7.4-10.4); Platelet Count 302 10^3/uL (150-450); Red Blood Count 3.89 10^6 /uL (3.70-4.87); Red Cell Distribution Width 14 % (10-15)
[2019-06-29 07:53] LABS: Urine Appearance Clear; Urine Bilirubin Negative (Negative); Urine Blood Negative (Negative); Urine Color Straw; Urine Glucose Negative (Negative); Urine Ketones Negative (Negative); Urine Nitrite Negative (Negative); Urine Protein Negative (Negative); Urine Specific Gravity 1.006 (1.010-1.030); Urine Urobilinogen Negative (Negative)
[2019-06-29 08:42] VITALS: BP 135/52
[2019-06-29] MEDS ORDERED: Torsemide TAB 10 MG PO SCH (09:00)
[2019-06-29] MEDS: DEXLANSOPRAZOLE 30 MG PO SCH (10:05)
[2019-06-29] MEDS: PTO:Insulin ASPART (NF) 100 UNIT/ML VIAL SUBCUT SCH (10:05)
[2019-06-29] MEDS: APIXABAN 5 MG PO SCH (10:07)
[2019-06-29] MEDS: DOXYCYCLINE 100 MG PO SCH (10:07)
[2019-06-29] MEDS: SPIRONOLACTONE 25 MG PO SCH (10:08)
[2019-06-29] MEDS: METOPROLOL SUCCINATE 25 MG PO SCH (10:08)
[2019-06-29] MEDS ORDERED: Vancomycin Trough Check NOTE FOLLOW UP ONE (12:30)
--- NOTE | 2019-06-29 14:50 | DS ---
CC: Robert Lira MD; Preeti Ruiz NP; Omar Daugherty MD DISCHARGE SUMMARY: DATE OF ADMISSION: 06/23/19 DATE OF DISCHARGE: 06/29/19 PRIMARY CARE PHYSICIAN: Robert Lira MD INFECTIOUS DISEASE SPECIALIST: Preeti Ruiz NP PRIMARY DIAGNOSES: 1. Cellulitis. 2. Lymphedema. SECONDARY DIAGNOSES: 1. Heart failure with preserved ejection fraction. 2. Insulin-dependent diabetes. 3. History of DVT, now on Eliquis. 4. Hypertension. 5. Gastroesophageal reflux disease. 6. Chronic kidney disease. 7. Personality disorder, not otherwise specified. CONSULTS: Mathew Rubin MD, and Preeti Ruiz NP, of ID. DISCHARGE MEDICATIONS: 1. Doxycycline 100 mg twice a day for 9 more days. 2. Apixaban 5 mg twice a day. 3. Torsemide 20 mg daily. 4. Insulin detemir 26 units in the morning, 24 units at night. 5. Insulin aspart sliding scale. 6. Dexlansoprazole 30 mg daily. 7. Metoprolol succinate 25 mg daily. 8. Valsartan 40 mg at bedtime. 9. Spironolactone 25 mg daily. 10. Fish oil 1000 mg daily. 11. Multivitamin 1 tablet daily. HISTORY OF PRESENT ILLNESS: Ms. Childs is a 69-year-old woman with chronic lymphedema and recurrent cellulitis; heart failure with preserved ejection fraction; DM2, on insulin; hypertension; GERD; and CKD; who presents to [facility] complaining of worsening lower extremity pain associated with fever of 104 degrees at home. The patient has been following with [facility] and she was given an outpatient prescription for doxycycline to take if she noticed recurrence of cellulitis in her lower extremities. However, when she did notice this recurrence recently, she called the infectious disease clinic and was advised by staff to present to the emergency room. The patient was also reporting nausea, but denies other symptoms. HOSPITAL COURSE: The patient was admitted with diagnosis of sepsis from cellulitis. She was noted to have a temperature of 103 degrees in the emergency room. She was initially started on cefazolin; however, over 2 days, she did not experience significant improvement in her symptoms and her CRP was unchanged, initially 250 and after 2 days on cefazolin 253. She was swabbed for MRSA in her nares, which resulted positive, so she was switched to vancomycin. After approximately 1 day on vancomycin, she began to experience slight improvement in her left lower extremity pain and swelling with receding of the erythema from the marker line. She was seen and evaluated by infectious disease team, who recommended to transition to oral doxycycline at least 24 hours before discharge. The patient had been given daily doses of furosemide 20 mg IV with significant urine output and drastic reduction in her lower extremity swelling. Also of note throughout hospitalization, her insulin requirements were significantly lower than at home. At home, she reports taking approximately 80 units of insulin a day between long and short acting doses; however, in the hospital, she was well controlled on detemir 15 units and rarely required doses during meal times. The patient was able to ambulate around the floors without lightheadedness after significant diuresis, so she was transitioned back to her home dose of oral torsemide, but recommended to take this every day going forward rather than every other day, and she was educated on continued measures to reduce lymphedema and therefore reduce recurrence of cellulitis. After transitioning from vancomycin to doxycycline for over 24 hours, her CRP continued to decrease. She had no recurrence of her fever. After 24 hours on doxycycline, the patient reports significant improvement in her lower extremity pain and swelling with significant improvement in lower extremity erythema. On day of discharge, a 10- point review of systems was performed and the patient denies fevers, chills, skin breakdown, chest pain, shortness of breath, new rash. No other pertinent positives or negatives. Infectious Disease recommended to complete a 14-day course of antibiotics with p.o. doxycycline, and this was prescribed to the patient's preferred pharmacy in [place]. She has a preference to avoid any medications that are made in [facility]. The patient was also strongly encouraged to follow up in the lymphedema clinic to prevent recurrence of her cellulitis. PHYSICAL EXAM: Afebrile, heart rate 63, blood pressure 135/52, respiratory rate 18, oxygen saturation 98% on room air. In general, she is a well- appearing woman, in no acute distress, wearing sunglasses. OP clear. Moist mucous membranes. Neck: Supple. No JVD. Heart: Regular rate and rhythm. No murmurs, gallops, or rubs. Lungs: Clear to auscultation bilaterally. Abdomen : Soft, nontender, nondistended. Extremities: Warm and well perfused. 2+ nonpitting edema over lower extremities below the knees with significant wrinkling. Skin: Circumferential erythema over left distal lower extremity significantly improved, no longer hot. Few scabbed lesions healing. Right lower extremity with very mild erythema anteriorly, not hot, also with healing scabs. No drainage or malodor. Neuro: A and O x3. No focal deficits. PERTINENT DIAGNOSTIC STUDIES: CBC with hemoglobin 11, which appears to be the patient's baseline, with MCV 84. BMP with creatinine 1.1 at baseline. CRP decreased from 250 to 40 by day of discharge. UA clear on repeat. Chest x-ray without acute cardiopulmonary process. Venous Dopplers of left leg without evidence of DVT. DISCHARGE PLAN: The patient should follow up with her primary care physician as well as Preeti Ruiz NP, in infectious disease clinic. She was discharged with 9 more days of doxycycline p.o. to complete a 14-day course on appropriate antibiotic coverage. For the patient's cellulitis, she will continue doxycycline and follow up with ID, but she was also encouraged to take measures to reduce lower extremity swelling which will involve attending a lymphedema clinic as well as monitoring her daily weights and taking extra diuretics as needed to reduce lower extremity from heart failure. She was also encouraged to elevate her legs, use compression stockings, and to exercise as able. She was encouraged to switch her torsemide from every other day to daily. Although she reports in the past, she would get lightheaded on daily dosing, she did tolerate daily dosing in the hospital. For her diabetes, she will continue to follow up with her outpatient provider, Dr. Omar Daugherty. She had significantly decreased insulin requirements in the hospital as she had improved diet here. She was encouraged to continue monitoring frequent fingersticks at home and to titrate her insulin as able. She was educated to eat a healthy diet, low in processed foods and low in sugar. She was encouraged to pursue an exercise routine. She was given return precautions which include, but are not limited to, recurrence of fever, worsening lower extremity edema or pain. DISPOSITION: To home. CONDITION: Good. TIME SPENT: Approximately 60 minutes was spent on discharge of this patient, more than half of which was spent with care coordination at bedside for interview and exam. [id number]/[facility] #: [id number] OLIVA
== END 2019-06-29 12:40 | disposition home or self-care (01) | DRG 871 ==
LOC: ED 18:40 → MED 21:57
PROVIDERS: ADMIT Internal Medicine; ATTEND Internal Medicine
DX: A41.9 Sepsis, unspecified organism (principal); I50.33 Acute on chronic diastolic (congestive) heart failure; L03.116 Cellulitis of left lower limb; I13.0 Hypertensive heart and chronic kidney disease with heart failure and stage 1 through stage 4 chronic kidney disease, or unspecified chronic kidney disease; I89.0 Lymphedema, not elsewhere classified; E11.22 Type 2 diabetes mellitus with diabetic chronic kidney disease; K21.9 Gastro-esophageal reflux disease without esophagitis; N18.3 Chronic kidney disease, stage 3 (moderate); K22.70 Barrett's esophagus without dysplasia; B95.62 Methicillin resistant Staphylococcus aureus infection as the cause of diseases classified elsewhere; E66.9 Obesity, unspecified; B37.9 Candidiasis, unspecified; E78.00 Pure hypercholesterolemia, unspecified; M19.90 Unspecified osteoarthritis, unspecified site; K57.90 Diverticulosis of intestine, part unspecified, without perforation or abscess without bleeding; F60.9 Personality disorder, unspecified; Z98.1 Arthrodesis status; Z88.1 Allergy status to other antibiotic agents; Z86.718 Personal history of other venous thrombosis and embolism; Z88.6 Allergy status to analgesic agent; Z88.8 Allergy status to other drugs, medicaments and biological substances; Z88.5 Allergy status to narcotic agent; Z68.38 Body mass index [BMI] 38.0-38.9, adult; Z79.01 Long term (current) use of anticoagulants; Z79.4 Long term (current) use of insulin; Z79.899 Other long term (current) drug therapy
CPT/HCPCS: 36415; 71046; 80048; 80053; 80202; 81003; 81015; 83605; 83735; 83880; 84484; 85025; 85027; 85610; 85652; 85730; 86140; 87040; 87086; 87641; 93005; 99284; A9270-GY; G8978-GP-CJ; G8979-GP-CI; J0690; J1940; J3370; J3475